=== PATIENT | male | born 1960 | race African-American/Black ===

== ENCOUNTER 2016-11-17 01:58 | Emergency (ER) | payer MEDICARE, OTHER ==
[~2016-11-17] VITALS: Ht 180.3 cm; Wt 88.5 kg
[~2016-11-17 01:58] MED LIST: ALBUTEROL SULF8.5 GM INH; AMLODIPINE BES2.5 MG ORAL; AMOXICILLIN500 MG ORAL; ASPIRIN EC81 MG ORAL; ATARAX25 MG ORAL; ATENOLOL100 MG ORAL; ATENOLOL25 MG PO; ATORVASTATIN CA10 MG ORAL; Abilify; BENAZEPRIL HCL20 MG PO; BENAZEPRIL HCL40 MG ORAL; BENZTROPINE ME0.5 MG PO; BISACODYL5 MG PO; CIPRO500 MG PO; CIPRO500 MG/5 M PO; CIPROFLOXACIN500 M2 ORAL; COGENTIN1 MG ORAL; COLACE100 MG ORAL; COUMADIN10 MG PO; DEPAKOTE ER500 MG ORAL; DEPAKOTE500 MG PO; DIVALPROEX SOD500 M2 ORAL; DIVALPROEX SOD500 MG PO; DOCUSATE SODIU100 MG ORAL; DOCUSATE SODIU100 MG PO; FLAGYL250 MG PO; FLAGYL500 MG ORAL; FLAGYL500 MG PO; FLUOXETINE HCL20 M2 ORAL; FOLIC ACID1 MG ORAL; FRAGMIN SQ; HYDROCODON-ACE1 EA15 ORAL; KEFLEX500 MG ORAL; LISINOPRIL10 MG ORAL; LISINOPRIL2.5 MG ORAL; MAGNESIUM CITR296 ML PO; METOPROLOL TART25 MG ORAL; METRONIDAZOLE500 MG ORAL; MIRALAX17 G2 ORAL; MIRALAX17 GM ORAL; MIRTAZAPINE30 MG PO; NAPROSYN500 M1 ORAL; NAPROXEN250 MG PO; NKM; NORCO 10/3251 EA ORAL; NORCO 5-325 TA1 EAC1 ORAL; NORCO 5-325 TA1 EACH ORAL; PANTOPRAZOLE SO40 MG ORAL; PAROXETINE HC12.5 MG ORAL; PAXIL CR12.5 MG PO; PAXIL20 MG PO; PEPCID40 MG PO; PERCOCET 5-3251 EACH ORAL; PROZAC40 MG ORAL; QUESTRAN PACKET4 G1 ORAL; QUETIAPINE FUM400 MG ORAL; QUETIAPINE FUMA50 MG ORAL; RANITIDINE HCL150 MG PO; RISPERDAL2 MG ORAL; RISPERIDONE3 MG PO; Remeron; SENOKOT1 TAB ORAL; SENOKOT8.6 MG ORAL; SEROQUEL XR300 MG PO; SEROQUEL100 MG ORAL; SERTRALINE HCL100 MG PO; TENORMIN25 MG ORAL; TENORMIN50 MG ORAL; TENORMIN50 MG PO; THIAMINE HCL100 MG ORAL; TYLENOL500 MG PO; TYLENOL650 MG/20. ORAL; VALIUM10 MG ORAL; VISTARIL25 MG ORAL; VITAMIN B-1100 MG ORAL; ZOFRAN4 MG ORAL; [UNRECOGNIZED DRUG - OTHER] PO
[2016-11-17] MEDS ORDERED: LORazepam Inj 2mg/ml 1ml ONE (01:59)
[2016-11-17 02:00] VITALS: BP 174/111
[2016-11-17] MEDS ORDERED: LORazepam Inj 2mg/ml 1ml IV ONE (02:15)
[2016-11-17 02:17] LABS: BASOPHILS % (AUTO) 1.9 % (0.0-2.0); EOSINOPHILS % (AUTO) 6.2 % (0.0-3.0); LYMPHOCYTES % (AUTO) 40.4 % (20.0-45.0); MEAN CORPUSCULAR HEMOGLOBIN 25.8 PG (27.0-31.0); MEAN CORPUSCULAR HGB CONC 31.3 G/DL (32.0-36.0); MEAN CORPUSCULAR VOLUME 82 FL (80-99); MEAN PLATELET VOLUME 6.1 FL (6.5-10.1); MONOCYTES % (AUTO) 6.5 % (1.0-10.0); NEUTROPHILS % (AUTO) 45.1 % (45.0-75.0); PLATELET COUNT 299 K/UL (150-450); RED BLOOD COUNT 5.52 M/UL (4.70-6.10); RED CELL DISTRIBUTION WIDTH 12.9 % (11.6-14.8); WHITE BLOOD COUNT 7.3 K/UL (4.8-10.8)
[2016-11-17 02:26] LABS: APPEARANCE,URINE CLEAR; KETONES,URINE NEGATIVE (NEGATIVE); LEUKOCYTE ESTERASE ,URINE NEGATIVE (NEGATIVE); NITRITE,URINE NEGATIVE (NEGATIVE); PROTEIN,URINE NEGATIVE (NEGATIVE); RBC,URINE 0-2 /HPF (0 - 0); SQUAMOUS EPITHELIAL CELL,UR FEW /LPF (NONE/OCC); UROBILINOGEN,URINE NORMAL MG/DL (0.0-1.0); WBC,URINE 0 /HPF (0 - 0)
[2016-11-17 02:27] LABS: PROTHROMBIN TIME 9.8 SEC (9.30-11.50)
[2016-11-17 02:35] LABS: ALCOHOL 390 mg/dL; ANION GAP 16 (5-15); CALCIUM 8.4 mg/dL (8.6-10.2); CARBON DIOXIDE 27 mEQ/L (20-30); CHLORIDE 101 mEQ/L (98-107); CREATININE 0.9 mg/dL (0.7-1.2); GLOMERULAR FILTRATION RATE > 60 mL/min (>60); HEMOLYSIS 81; POTASSIUM 4.2 mEQ/L (3.4-4.9); SODIUM 144 mEQ/L (135-145)
[2016-11-17] MEDS ORDERED: Depakote ER 250mg tab ORAL ONE (03:15)
[2016-11-17] MEDS ORDERED: Depakote 500mg tab ORAL ONE (03:15)
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
[2016-11-17] MEDS ORDERED: HYDROCODON-ACE1 EA15 ORAL (03:21)
[2016-11-17 04:42] VITALS: BP 130/90
[2016-11-17 05:25] VITALS: BP 122/82
[2016-11-17 07:15] VITALS: BP 143/84
[2016-11-17 07:16] VITALS: BP 143/84
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
== END 2016-11-17 07:16 | disposition home or self-care (01) ==
LOC: EDBD 01:58 → EMR 02:10
DX: S81.801A Unspecified open wound, right lower leg, initial encounter (principal); F10.120 Alcohol abuse with intoxication, uncomplicated; F14.10 Cocaine abuse, uncomplicated; I10 Essential (primary) hypertension; R56.9 Unspecified convulsions; Z91.19 Patient's noncompliance with other medical treatment and regimen; W34.00XA Accidental discharge from unspecified firearms or gun, initial encounter; Y92.9 Unspecified place or not applicable; Y99.8 Other external cause status
CPT/HCPCS: 29515; 36415; 73590; 73610; 80048; 80164; 80300; 81001; 82962; 85025; 85610; 85730; 96374; 99284; G0480; 80329

== ENCOUNTER 2016-11-21 14:43 | Emergency (ER) | payer MEDICARE, OTHER ==
[~2016-11-21] VITALS: Ht 175.3 cm; Wt 74.8 kg
[2016-11-21] MEDS ORDERED: Nitroglycerin 2% oint pkt TOPIC ONE (16:00)
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
[2016-11-21 16:46] LABS: BASOPHILS % (AUTO) 1.3 % (0.0-2.0); EOSINOPHILS % (AUTO) 3.9 % (0.0-3.0); LYMPHOCYTES % (AUTO) 28.3 % (20.0-45.0); MEAN CORPUSCULAR HEMOGLOBIN 26.6 PG (27.0-31.0); MEAN CORPUSCULAR HGB CONC 31.4 G/DL (32.0-36.0); MEAN CORPUSCULAR VOLUME 85 FL (80-99); MEAN PLATELET VOLUME 6.4 FL (6.5-10.1); MONOCYTES % (AUTO) 5.5 % (1.0-10.0); NEUTROPHILS % (AUTO) 61.1 % (45.0-75.0); PLATELET COUNT 200 K/UL (150-450); RED BLOOD COUNT 4.91 M/UL (4.70-6.10); WHITE BLOOD COUNT 9.4 K/UL (4.8-10.8)
[2016-11-21 17:00] LABS: INR 0.9 (0.9-1.1); PROTHROMBIN TIME 9.5 SEC (9.30-11.50)
[2016-11-21 17:07] LABS: TROPONIN I < 0.30 ng/mL (<=0.30)
[2016-11-21 17:08] LABS: ALANINE AMINOTRANSFERASE 30 U/L (3-41); ALCOHOL 148 mg/dL; ANION GAP 17 (5-15); ASPARTATE AMINO TRANSFERASE 53 U/L (5-40); CALCIUM 9.1 mg/dL (8.6-10.2); CARBON DIOXIDE 25 mEQ/L (20-30); CHLORIDE 96 mEQ/L (98-107); CREATININE 0.8 mg/dL (0.7-1.2); GLOMERULAR FILTRATION RATE > 60 mL/min (>60); HEMOLYSIS 107; POTASSIUM 4.8 mEQ/L (3.4-4.9); SODIUM 138 mEQ/L (135-145); TOTAL PROTEIN 7.5 g/dL (6.6-8.7)
[2016-11-21 17:10] LABS: APPEARANCE,URINE CLEAR; KETONES,URINE NEGATIVE (NEGATIVE); LEUKOCYTE ESTERASE ,URINE NEGATIVE (NEGATIVE); NITRITE,URINE NEGATIVE (NEGATIVE); PH,URINE 5 (4.5-8.0); PROTEIN,URINE NEGATIVE (NEGATIVE); UROBILINOGEN,URINE NORMAL MG/DL (0.0-1.0)
[2016-11-21 17:14] VITALS: BP 139/91
[2016-11-21] MEDS ORDERED: Cephalexin 500mg cap ORAL ONE (17:45)
[2016-11-21] MEDS ORDERED: PERCOCET 5-3251 EACH ORAL (18:27)
[2016-11-21] MEDS ORDERED: CEPHALEXIN500 MG ORAL (18:27)
[2016-11-21 18:28] VITALS: BP 138/96
[2016-11-21] MEDS ORDERED: Oxycodone/Acetaminophen 5-325 ORAL ONE (18:30)
[2016-11-21] MEDS ORDERED: PEPCID20 MG ORAL (18:33)
[2016-11-21 18:46] VITALS: BP 138/96
--- NOTE | 2016-11-22 08:55 | Diagnostic Imaging Report ---
Clinical history: Acute chest pain. Technique: Portable AP chest radiograph was obtained. Comparison: 08/27/14. Findings: The lungs are well inflated and clear. There is no pneumonia or pulmonary edema. There is no pleural effusion or pneumothorax. The cardiac and mediastinal silhouettes are normal in appearance. The bony thorax is unremarkable. Impression: No acute cardiopulmonary process.
--- NOTE | 2016-11-22 21:13 | Cardiology Report ---
APPROVED REPORT EKG Measurement Heart [id number] Normal sinus rhythm Septal infarct, age undetermined Abnormal ECG
== END 2016-11-21 18:46 | disposition home or self-care (01) ==
LOC: EMR 16:00
DX: Z48.02 Encounter for removal of sutures (principal); R07.9 Chest pain, unspecified; F10.129 Alcohol abuse with intoxication, unspecified; F10.10 Alcohol abuse, uncomplicated; S81.801A Unspecified open wound, right lower leg, initial encounter; I10 Essential (primary) hypertension; R56.9 Unspecified convulsions; F19.20 Other psychoactive substance dependence, uncomplicated; D64.9 Anemia, unspecified
CPT/HCPCS: 36415; 71010; 80053; 80300; 81003; 82550; 83880; 84484; 85025; 85610; 85730; 93005; 99284; G0480; 80329

== ENCOUNTER 2016-11-25 13:34 | Outpatient (RCR) | payer MEDICARE, OTHER ==
[~2016-11-25] VITALS: Ht 172.7 cm; Wt 77.1 kg
[~2016-11-25 13:34] MED LIST changes: -IBUPROFEN600 MG ORAL
[2016-12-04] MEDS ORDERED: Lidocaine HCl 2% Jelly 5ml Tube TOPIC ONE (11:45)
== END 2016-12-08 | disposition home or self-care (01) ==
LOC: WCC 13:34
DX: L97.813 Non-pressure chronic ulcer of other part of right lower leg with necrosis of muscle (principal); W34.00XS Accidental discharge from unspecified firearms or gun, sequela; Z88.2 Allergy status to sulfonamides; I10 Essential (primary) hypertension; Z86.73 Personal history of transient ischemic attack (TIA), and cerebral infarction without residual deficits; R60.0 Localized edema; F31.9 Bipolar disorder, unspecified
CPT/HCPCS: 11043; G0463

== ENCOUNTER → 2016-11-25 | Outpatient (CLI) | payer MEDICARE ==
[~2016-11-25] MED LIST changes: +CEPHALEXIN500 MG ORAL; +IBUPROFEN600 MG ORAL; +PEPCID20 MG ORAL
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
== END | disposition home or self-care (01) ==
LOC: VAS 12:47
DX: S91.001A Unspecified open wound, right ankle, initial encounter (principal); X58.XXXA Exposure to other specified factors, initial encounter; Y93.9 Activity, unspecified; Y92.9 Unspecified place or not applicable
CPT/HCPCS: 93971

== ENCOUNTER 2016-12-09 13:30 | Outpatient (RCR) | payer MEDICARE, OTHER ==
[2016-12-16] MEDS ORDERED: IBUPROFEN600 MG ORAL (16:45)
[2016-12-16] MEDS ORDERED: NORCO 5-325 TA1 EACH ORAL (16:45)
== END 2017-01-08 | disposition home or self-care (01) ==
LOC: WCC 13:30
DX: L97.813 Non-pressure chronic ulcer of other part of right lower leg with necrosis of muscle (principal); W34.00XS Accidental discharge from unspecified firearms or gun, sequela; R60.0 Localized edema; I16.0 Hypertensive urgency; X58.XXXD Exposure to other specified factors, subsequent encounter
CPT/HCPCS: 11043

== ENCOUNTER 2016-12-16 13:53 | Emergency (ER) | payer OTHER ==
[~2016-12-16] VITALS: Ht 172.7 cm; Wt 77.1 kg
[2016-12-16 14:12] VITALS: BP 172/114
[2016-12-16] MEDS ORDERED: Ketorolac 60mg Inj IM ONE (14:45)
[2016-12-16] MEDS ORDERED: Metoprolol Tartrate 12.5mg TAB ORAL ONE (14:45)
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
[2016-12-16 15:33] LABS: BASOPHILS % (AUTO) 1.6 % (0.0-2.0); EOSINOPHILS % (AUTO) 4.4 % (0.0-3.0); LYMPHOCYTES % (AUTO) 35.5 % (20.0-45.0); MEAN CORPUSCULAR HEMOGLOBIN 25.3 PG (27.0-31.0); MEAN CORPUSCULAR HGB CONC 31.1 G/DL (32.0-36.0); MEAN CORPUSCULAR VOLUME 81 FL (80-99); MEAN PLATELET VOLUME 6.3 FL (6.5-10.1); MONOCYTES % (AUTO) 5.5 % (1.0-10.0); NEUTROPHILS % (AUTO) 52.9 % (45.0-75.0); PLATELET COUNT 272 K/UL (150-450); RED BLOOD COUNT 5.65 M/UL (4.70-6.10); WHITE BLOOD COUNT 7.3 K/UL (4.8-10.8)
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
[2016-12-16 15:44] LABS: PROTHROMBIN TIME 10.4 SEC (9.30-11.50)
[2016-12-16 15:48] LABS: ALANINE AMINOTRANSFERASE 7 U/L (3-41); ALBUMIN/GLOBULIN RATIO 1.3 (1.0-2.7); ANION GAP 19 (5-15); ASPARTATE AMINO TRANSFERASE 27 U/L (5-40); CALCIUM 9.5 mg/dL (8.6-10.2); CARBON DIOXIDE 24 mEQ/L (20-30); CHLORIDE 92 mEQ/L (98-107); CREATININE 0.9 mg/dL (0.7-1.2); CRP QUANT < 0.3 mg/dL (< 0.5); GLOMERULAR FILTRATION RATE > 60 mL/min (>60); HEMOLYSIS 3; POTASSIUM 3.6 mEQ/L (3.4-4.9); SODIUM 135 mEQ/L (135-145); TOTAL PROTEIN 7.6 g/dL (6.6-8.7); URIC ACID 5.4 mg/dL (3.0-7.5)
[2016-12-16 16:21] VITALS: BP 174/112
[2016-12-16] MEDS ORDERED: IBUPROFEN600 MG ORAL (16:45)
[2016-12-16] MEDS ORDERED: NORCO 5-325 TA1 EACH ORAL (16:45)
[2016-12-16 16:52] VITALS: BP 158/98
== END 2016-12-16 16:52 | disposition home or self-care (01) ==
LOC: EMR 15:05
DX: M25.571 Pain in right ankle and joints of right foot (principal); M79.5 Residual foreign body in soft tissue; I10 Essential (primary) hypertension; F17.200 Nicotine dependence, unspecified, uncomplicated
CPT/HCPCS: 36415; 80053; 84550; 85025; 85610; 85730; 86140; 96372; 99284

== ENCOUNTER 2017-01-31 17:02 | Emergency (ER) | payer MEDICARE, OTHER ==
[~2017-01-31] VITALS: Ht 185.4 cm; Wt 95.3 kg
[2017-01-31 17:00] VITALS: BP 156/97
[~2017-01-31 17:02] MED LIST changes: +IBUPROFEN600 MG ORAL; +UNOBMED
[2017-01-31 17:44] LABS: MEAN CORPUSCULAR HEMOGLOBIN 27.1 PG (27.0-31.0); MEAN CORPUSCULAR VOLUME 82 FL (80-99); MEAN PLATELET VOLUME 7.2 FL (6.5-10.1); PLATELET COUNT 147 K/UL (150-450); RED CELL DISTRIBUTION WIDTH 15.4 % (11.6-14.8); WHITE BLOOD COUNT 5.2 K/UL (4.8-10.8)
[2017-01-31 17:50] LABS: ACETAMINOPHEN < 10 ug/mL (10-30); ALANINE AMINOTRANSFERASE 87 U/L (3-41); ALBUMIN/GLOBULIN RATIO 1.4 (1.0-2.7); ALCOHOL 446 mg/dL; ANION GAP 15 (5-15); ASPARTATE AMINO TRANSFERASE 123 U/L (5-40); CALCIUM 7.6 mg/dL (8.6-10.2); CARBON DIOXIDE 24 mEQ/L (20-30); CHLORIDE 105 mEQ/L (98-107); CREATININE 0.7 mg/dL (0.7-1.2); GLOMERULAR FILTRATION RATE > 60 mL/min (>60); HEMOLYSIS 7; POTASSIUM 3.3 mEQ/L (3.4-4.9); SODIUM 144 mEQ/L (135-145); TOTAL PROTEIN 6.7 g/dL (6.6-8.7)
[2017-01-31 18:53] VITALS: BP 143/87
[2017-01-31 20:47] LABS: ANISOCYTOSIS 1+; BAND NEUTROPHILS % (MANUAL) 0 % (0-8); BASOPHILS % (MANUAL) 3 % (0-2); EOSINOPHILS % (MANUAL) 5 % (0-3); HYPOCHROMASIA 1+; LYMPHOCYTES % (MANUAL) 52 % (20-45); NEUTROPHILS % (MANUAL) 34 % (45-75); PLATELET ESTIMATE DECREASED; PLATELET MORPHOLOGY NORMAL; TOTAL CELLS COUNTED 100
[2017-01-31 22:04] VITALS: BP 146/80
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
[2017-01-31 23:00] VITALS: BP 142/82
[2017-01-31 23:20] VITALS: BP 142/82
== END 2017-01-31 23:20 | disposition home or self-care (01) ==
LOC: EDBD 17:02 → EMR 17:42
DX: F10.129 Alcohol abuse with intoxication, unspecified (principal); Y90.8 Blood alcohol level of 240 mg/100 ml or more; I10 Essential (primary) hypertension; Z18.89 Other specified retained foreign body fragments
CPT/HCPCS: 36415; 80053; 80300; 82550; 85007; 85025; 96360; 96361; 99284; G0480; 80329

== ENCOUNTER 2017-02-23 11:39 | Day surgery (SDC) | payer MEDICARE, OTHER ==
[2017-02-17 08:32] LABS: BASOPHILS % (AUTO) 3.2 % (0.0-2.0); EOSINOPHILS % (AUTO) 6.5 % (0.0-3.0); LYMPHOCYTES % (AUTO) 40.1 % (20.0-45.0); MEAN CORPUSCULAR HEMOGLOBIN 25.6 PG (27.0-31.0); MEAN CORPUSCULAR HGB CONC 30.5 G/DL (32.0-36.0); MEAN CORPUSCULAR VOLUME 84 FL (80-99); MEAN PLATELET VOLUME 6.6 FL (6.5-10.1); NEUTROPHILS % (AUTO) 36.2 % (45.0-75.0); PLATELET COUNT 299 K/UL (150-450); RED BLOOD COUNT 5.59 M/UL (4.70-6.10); RED CELL DISTRIBUTION WIDTH 16.2 % (11.6-14.8)
[2017-02-17 08:44] LABS: PROTHROMBIN TIME 10.5 SEC (9.30-11.50)
[2017-02-17 09:06] LABS: ALANINE AMINOTRANSFERASE 51 U/L (3-41); ALBUMIN/GLOBULIN RATIO 1.2 (1.0-2.7); ANION GAP 14 (5-15); ASPARTATE AMINO TRANSFERASE 46 U/L (5-40); CARBON DIOXIDE 28 mEQ/L (20-30); CHLORIDE 97 mEQ/L (98-107); CREATININE 0.9 mg/dL (0.7-1.2); GLOMERULAR FILTRATION RATE > 60 mL/min (>60); HEMOLYSIS 1; MAGNESIUM 1.8 mg/dL (1.7-2.5); PHOSPHORUS 3.2 mg/dL (2.5-4.8); POTASSIUM 3.7 mEQ/L (3.4-4.9); SODIUM 139 mEQ/L (135-145); TOTAL PROTEIN 7.8 g/dL (6.6-8.7)
--- NOTE | 2017-02-17 11:54 | Diagnostic Imaging Report ---
Indication: Dyspnea Comparison: 11/21/16 2 views of the chest obtained. Findings: Cardiomediastinal silhouette and pulmonary vascularity are within normal limits for age. The diaphragmatic contour is smooth and costophrenic angles are sharp. No pleural effusions are identified. The bones are unremarkable. Impression: No acute disease
[~2017-02-23] VITALS: Ht 175.3 cm; Wt 77.1 kg
[2017-02-23] VITALS (13 sets, daily range): BP systolic 148–188; BP diastolic 98–112
--- NOTE | 2017-02-23 06:52 | Pre-Procedure Note/Attestation ---
Pre-Procedure Note/Attestation Complete Prior to Procedure Planned Procedure: right Procedure Narrative: rt ankle resection of foreign object Indications for Procedure Pre-Operative Diagnosis: rt ankle foreign object Attestation I attest that I discussed the nature of the procedure; its benefits; risks and complications; and alternatives (and the risks and benefits of such alternatives ), prior to the procedure, with the patient (or the patient's legal claim service representative). I attest that, if there was a reasonable possibility of needing a blood transfusion, the patient (or the patient's legal claim service representative) was given the [facility] standardized written summary, pursuant to the [place] Blood Safety Act ([place] Health and Safety Code # 1645, as amended). I attest that I re-evaluated the patient just prior to the surgery and that there has been no change in the patient's H&P, except as documented below: NONE RUCHI ORTEGA February 23, 2017 06:51
[~2017-02-23 11:39] MED LIST changes: +ceFAZolin 1gm in D5W 55ml IVPB ONE; +celeBREX 200mg Cap **SURGERY PATIENTS ONLY ORAL ONE; +oxyCONTIN 20mg tab ORAL ONE
[2017-02-23] MEDS ORDERED: celeBREX 200mg Cap **SURGERY PATIENTS ONLY ORAL ONE (12:51)
[2017-02-23] MEDS ORDERED: LR 1000ml 1,000 ML IV SCH (13:30)
[2017-02-23] MEDS ORDERED: Norco 5mg/325mg tab ORAL PRN (14:15)
[2017-02-23] MEDS ORDERED: D5 1/2NS 1,000 ML IV SCH (14:15)
[2017-02-23] MEDS ORDERED: Tylenol #3 tab (300mg/30mg) ORAL PRN (14:15)
[2017-02-23] MEDS ORDERED: HYDROmorphone 1mg/ml Carpuject SUBQ PRN (14:15)
[2017-02-23] MEDS ORDERED: Bupivacaine w/Epi 0.5% 30ml Vial INJ ONE (14:25)
[2017-02-23] MEDS ORDERED: Bacitracin 50000 Units Vial ONE (14:25)
[2017-02-23] MEDS ORDERED: Midazolam 2mg/2ml Inj ONE (14:30)
[2017-02-23] MEDS ORDERED: Lidocaine 1% MPF 10mg/ml 5ml ONE (14:30)
[2017-02-23] MEDS ORDERED: NS Irrig 1000ml ONE (14:30)
[2017-02-23] MEDS ORDERED: fentaNYL 100 mcg/2 mL IV ONE (14:30)
[2017-02-23] MEDS ORDERED: LR 1000ml ONE ×2 (14:30)
[2017-02-23] MEDS ORDERED: Propofol 10mg/ml 20ml IV ONE ×2 (14:33→14:46)
--- NOTE | 2017-02-23 15:03 | Brief Operative Note ---
Immediate Post Operative Note Operative Note Chief Complaint: rt ankle foreign body Pre-op Diagnosis: rt ankle foreign body Procedure: rt ankle resection of foreign object Post-op Diagnosis: same as pre-op Findings: consistent w/pre-op dx studies Surgeon: md ann Die Fitter: soha mejia Anesthesiologist: md jelena Anesthesia: local Specimen: yes Complications: none Condition: stable Estimated Blood Loss: minimal Drains: none Implant(s) used?: No LEONA MEJIA February 23, 2017 15:03
--- NOTE | 2017-02-23 15:10 | Anethesia Preoperative Eval ---
Anesthesia Pre-op PMH/ROS General Date of Evaluation: February 23, 2017 Anesthesiologist: Rafy ASA Score: ASA 3 Mallampati Score Class I : Soft palate, uvula, fauces, pillars visible Class II: Soft palate, uvula, fauces visible Class III: Soft palate, base of uvula visible Class IV: Only hard plate visible Mallampati Classification: Class II Surgeon: Jenae Diagnosis: Right ankle foregin body Surgical Procedure: Extraction foreign body right ankle Anesthesia History: none Family History: no anesthesia problems Allergies: Coded Allergies: NO KNOWN ALLERGIES (Unverified Allergy, Unknown, 09/13/15) Medications: see eMAR Past Medical History Cardiovascular: Reports: HTN, other - CAD, Denies: CAD, PA, arrhythmia, valve dz Pulmonary: Denies: COPD, GLENDA, asthma, other Gastrointestinal/Genitourinary: Reports: GERD, Denies: CRI, ESRD, other Neurologic/Psychiatric: Reports: other - schizophrenic, Denies: CVA, TIA, dementia, depression/anxiety Endocrine: Denies: DM, hypothyroidism, other, steroids HEENT: Denies: CHENEGA (L), CHENEGA (R), cataract (L), cataract (R), glaucoma, other Hematology/Immune: Denies: DVT, anemia, bleeding disorder, other Musculoskeletal/Integumentary: Denies: DDD, DJD, OA, RA, edema, other PSxH Narrative: See chart Anesthesia Pre-op Phys. Exam Physician Exam Last Vital Signs Date Time Temp Pulse Resp B/P Pulse Ox O2 Delivery O2 Flow Rate FiO2 02/23/17 12:18 97.5 78 20 174/112 100 Room Air Constitutional: NAD Cardiovascular: RRR Respiratory: CTA Airway Exam Mallampati Score: Class II Anesthesia Pre-op A/P Labs see chart Risk Assessment & Plan Assessment: ASA III Plan: MAC Status Change Before Surgery: No Pre-Antibiotics Drug: Ancef 1g Given Within 1 Hr of Incision: Yes Time Given: 14:30 FARHAN NUNES M.D. February 23, 2017 15:10
[2017-02-23] MEDS ORDERED: LR 1000ml 1,000 ML IVLG SCH (15:12)
--- NOTE | 2017-02-23 15:12 | Immediate Post-Op Evaluation ---
Immediate Post-Op Evalulation Immediate Post-Op Evalulation Procedure: Extraction right ankle foreign body Date of Evaluation: February 23, 2017 Time of Evaluation: 15:12 IV Fluids: 500 Blood Products: 0 Estimated Blood Loss: 0 Urinary Output: 0 Blood Pressure Systolic: 148 Blood Pressure Diastolic: 102 Pulse Rate: 80 Respiratory Rate: 16 O2 Sat by Pulse Oximetry: 99 Temperature (Fahrenheit): 97.2 Pain Score (1-10): 0 Nausea: No Vomiting: No Complications 0 Patient Status: awake, reacts, patent, none Hydration Status: adequate Drug: Ancef 1g Given Within 1 Hr of Incision: Yes Time Given: 14:30 FARHAN NUNES M.D. February 23, 2017 15:12
[2017-02-23] MEDS ORDERED: Hydromorphone 0.5mg/0.5ml inj IVP PRN (15:15)
[2017-02-23] MEDS ORDERED: DiphenhydrAMINE 50mg/ml Inj IVP PRN (15:15)
[2017-02-23] MEDS ORDERED: fentaNYL 100 mcg/2 mL IV PRN (15:15)
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
[2017-02-24 06:53] VITALS: BP 162/96
--- NOTE | 2017-02-24 06:53 | 48 Hour Post Anesthesia Eval ---
Post Anesthesia Evaluation Procedure: Extraction right ankle foreign body Date of Evaluation: February 23, 2017 Time of Evaluation: 17:30 Blood Pressure Systolic: 162 0: 96 Pulse Rate: 68 Respiratory Rate: 15 Temperature (Fahrenheit): 97.6 O2 Sat by Pulse Oximetry: 100 Airway: patent Nausea: No Vomiting: No Pain Intensity: 0 Hydration Status: adequate Cardiopulmonary Status: at baseline Mental Status/LOC: patient returned to baseline Post-Anesthesia Complications: 0 Follow-up care needed: ready to discharge FARHAN NUNES M.D. February 24, 2017 06:53
== END 2017-02-23 17:15 | disposition home or self-care (01) ==
LOC: SUR 11:39
DX: M79.5 Residual foreign body in soft tissue (principal); I25.10 Atherosclerotic heart disease of native coronary artery without angina pectoris; I10 Essential (primary) hypertension; K21.9 Gastro-esophageal reflux disease without esophagitis; D64.9 Anemia, unspecified; G40.909 Epilepsy, unspecified, not intractable, without status epilepticus; F17.210 Nicotine dependence, cigarettes, uncomplicated; R94.31 Abnormal electrocardiogram [ECG] [EKG]; F20.9 Schizophrenia, unspecified; F31.9 Bipolar disorder, unspecified; F10.10 Alcohol abuse, uncomplicated; F14.10 Cocaine abuse, uncomplicated
CPT/HCPCS: 20525; 36415; 71020; 73600; 76001; 80053; 83735; 84100; 85025; 85610; 85730; J0360; J0690; J2250; J2704; J3010; J7120; 94003; 94150

== ENCOUNTER 2017-05-17 14:09 | Inpatient (IN) | payer MEDICARE, OTHER ==
[~2017-05-17] VITALS: Ht 165.1 cm; Wt 72.6 kg
[~2017-05-17 14:09] MED LIST changes: -ceFAZolin 1gm in D5W 55ml IVPB ONE; -celeBREX 200mg Cap **SURGERY PATIENTS ONLY ORAL ONE; -oxyCONTIN 20mg tab ORAL ONE
--- NOTE | 2017-05-17 14:44 | Emergency Room Report ---
History of Present Illness General Chief Complaint: Abdominal Pain Source: Patient Present Illness HPI Patient 57-year-old male brought in by self after increased abdominal pain. The patient associated shortness of breath. The patient prior history of hernia repair. The patient noticed his abdomen becoming increasingly distended. Patient denied any fevers. He denied hematemesis. Patient had associated chest discomfort which he describes as burning sensation. Patient prior history of alcohol abuse. Allergies: Coded Allergies: NO KNOWN ALLERGIES (Unverified Allergy, Unknown, 09/13/15) Patient History Past Medical History: see triage record Reviewed Nursing Documentation: PMH: Agreed, PSxH: Agreed Nursing Documentation-PMH Past Medical History: No History, Except For Hx Cardiac Problems: Yes Hx Hypertension: Yes Hx Cancer: No Hx Gastrointestinal Problems: Yes Hx Neurological Problems: Yes Hx Seizures: Yes - 2-3 years ago Hx Dizziness: Yes - AT TIMES Hx Neurologic Surgery: No Review of Systems All Other Systems: negative except mentioned in HPI Physical Exam Vital Signs Date Time Temp Pulse Resp B/P Pulse Ox O2 Delivery O2 Flow Rate FiO2 05/17/17 14:18 97.9 76 18 106/71 98 Room Air Sp02 EP Interpretation: reviewed, normal General Appearance: normal inspection, well appearing, alert, GCS 15, mild distress Head: atraumatic ENT: normal ENT inspection, hearing grossly normal, normal voice Neck: normal inspection, full range of motion, supple, no bony tend Respiratory: normal inspection, lungs clear, normal breath sounds, no respiratory distress, no retraction, no wheezing Cardiovascular #1: regular rate, rhythm, no edema Gastrointestinal: normal inspection, normal bowel sounds, non tender, soft, no guarding, no hernia, distended Genitourinary: no CVA tenderness Musculoskeletal: normal inspection, back normal, normal range of motion Neurologic: normal inspection, alert, oriented x3, responsive, hand clerical verifier III-XII nml as tested, speech normal Psychiatric: normal inspection, judgement/insight normal, mood/affect normal Skin: normal inspection, normal color, no rash Medical Decision Making Diagnostic Impression: Primary Impression: Abdominal pain Additional Impression: Acute pancreatitis ER Course Patient presented for abdominal pain. Differential diagnoses included ischemic bowel, appendicitis, perforated viscus, abdominal aortic aneurysm, inferior myocardial infarction, viral gastroenteritis Because of complexity of patient's case laboratory testing and imaging studies were ordered.EKG interpreted by me showed normal sinus rhythm with a rate of [address] or T wave changes. Patient noted have prolonged QT interval. Patient noted be taking psychiatric medications.Laboratory testing was notable for hyponatremia as well as some elevation of the liver tests and elevated lipase consistent with pancreatitis. Acute abdominal series showed no evident obstruction. Dr. Yuan Redding was contacted for inpatient management Labs Test 05/17/17 14:33 05/17/17 16:10 White Blood Count 6.8 K/UL (4.8-10.8) Red Blood Count 5.48 M/UL (4.70-6.10) Hemoglobin 14.8 G/DL (14.2-18.0) Hematocrit 46.5 % (42.0-52.0) Mean Corpuscular Volume 85 FL (80-99) Mean Corpuscular Hemoglobin 27.0 PG (27.0-31.0) Mean Corpuscular Hemoglobin Concent 31.8 G/DL (32.0-36.0) Red Cell Distribution Width 13.8 % (11.6-14.8) Platelet Count 221 K/UL (150-450) Mean Platelet Volume 6.7 FL (6.5-10.1) Neutrophils (%) (Auto) 66.7 % (45.0-75.0) Lymphocytes (%) (Auto) 23.8 % (20.0-45.0) Monocytes (%) (Auto) 6.9 % (1.0-10.0) Eosinophils (%) (Auto) 1.3 % (0.0-3.0) Basophils (%) (Auto) 1.3 % (0.0-2.0) Prothrombin Time 10.0 SEC (9.30-11.50) Prothromb Time International Ratio 1.0 (0.9-1.1) Activated Partial Thromboplast Time 29 SEC (23-33) Sodium Level 129 mEQ/L (135-145) Potassium Level 3.3 mEQ/L (3.4-4.9) Chloride Level 89 mEQ/L (98-107) Carbon Dioxide Level 25 mEQ/L (20-30) Anion Gap 15 (5-15) Blood Urea Nitrogen 7 mg/dL (7-23) Creatinine 0.9 mg/dL (0.7-1.2) Estimat Glomerular Filtration Rate > 60 mL/min (>60) Glucose Level 112 mg/dL (74-106) Calcium Level 9.6 mg/dL (8.6-10.2) Total Bilirubin 0.9 mg/dL (0.0-1.2) Aspartate Amino Transf (AST/SGOT) 62 U/L (5-40) Alanine Aminotransferase (ALT/SGPT) 50 U/L (3-41) Alkaline Phosphatase 66 U/L (40-129) Troponin I < 0.30 ng/mL (<=0.30) Total Protein 8.2 g/dL (6.6-8.7) Albumin 4.4 g/dL (3.5-5.2) Globulin 3.8 g/dL Albumin/Globulin Ratio 1.1 (1.0-2.7) Lipase 829 U/L (< 60) Urine Color Pale yellow Urine Appearance Clear Urine pH 7 (4.5-8.0) Urine Specific [place] 1.005 (1.005-1.035) Urine Protein Negative (NEGATIVE) Urine Glucose (UA) Negative (NEGATIVE) Urine Ketones 3+ (NEGATIVE) Urine Occult Blood 1+ (NEGATIVE) Urine Nitrite Negative (NEGATIVE) Urine Bilirubin Negative (NEGATIVE) Urine Urobilinogen 1 MG/DL (0.0-1.0) Urine Leukocyte Esterase Negative (NEGATIVE) Urine RBC 2-4 /HPF (0 - 0) Urine WBC 0-2 /HPF (0 - 0) Urine Squamous Epithelial Cells None /LPF (NONE/OCC) Urine Amorphous Sediment Few /LPF (NONE) Urine Bacteria Few /HPF (NONE) EKG Diagnostic Results Rate: normal - 87 Rhythm: NSR ST Segments: no acute changes Last Vital Signs Date Time Temp Pulse Resp B/P Pulse Ox O2 Delivery O2 Flow Rate FiO2 05/17/17 14:18 97.9 76 18 106/71 98 Room Air Status: improved Disposition: HOME, SELF-CARE Condition: Stable Stu Saucedo May 17, 2017 14:43
[2017-05-17] MEDS ORDERED: LORazepam Inj 2mg/ml 1ml IV ONE ×2 (14:45→17:30)
[2017-05-17 14:49] LABS: BASOPHILS % (AUTO) 1.3 % (0.0-2.0); EOSINOPHILS % (AUTO) 1.3 % (0.0-3.0); LYMPHOCYTES % (AUTO) 23.8 % (20.0-45.0); MEAN CORPUSCULAR HGB CONC 31.8 G/DL (32.0-36.0); MEAN CORPUSCULAR VOLUME 85 FL (80-99); MEAN PLATELET VOLUME 6.7 FL (6.5-10.1); MONOCYTES % (AUTO) 6.9 % (1.0-10.0); NEUTROPHILS % (AUTO) 66.7 % (45.0-75.0); PLATELET COUNT 221 K/UL (150-450); RED BLOOD COUNT 5.48 M/UL (4.70-6.10); RED CELL DISTRIBUTION WIDTH 13.8 % (11.6-14.8); WHITE BLOOD COUNT 6.8 K/UL (4.8-10.8)
[2017-05-17 15:13] LABS: ALANINE AMINOTRANSFERASE 50 U/L (3-41); ALBUMIN/GLOBULIN RATIO 1.1 (1.0-2.7); ANION GAP 15 (5-15); ASPARTATE AMINO TRANSFERASE 62 U/L (5-40); CALCIUM 9.6 mg/dL (8.6-10.2); CARBON DIOXIDE 25 mEQ/L (20-30); CHLORIDE 89 mEQ/L (98-107); CREATININE 0.9 mg/dL (0.7-1.2); GLOMERULAR FILTRATION RATE > 60 mL/min (>60); HEMOLYSIS 5; POTASSIUM 3.3 mEQ/L (3.4-4.9); SODIUM 129 mEQ/L (135-145); TOTAL PROTEIN 8.2 g/dL (6.6-8.7)
[2017-05-17 15:19] LABS: TROPONIN I < 0.30 ng/mL (<=0.30)
[2017-05-17 15:25] LABS: LIPASE 829 U/L (< 60)
[2017-05-17] MEDS ORDERED: Morphine Sulfate 4mg/ml Inj IVP ONE (15:30)
[2017-05-17 16:13] VITALS: BP 156/144
[2017-05-17 16:34] LABS: APPEARANCE,URINE CLEAR; KETONES,URINE 3+ (NEGATIVE); LEUKOCYTE ESTERASE ,URINE NEGATIVE (NEGATIVE); NITRITE,URINE NEGATIVE (NEGATIVE); PH,URINE 7 (4.5-8.0); PROTEIN,URINE NEGATIVE (NEGATIVE); UROBILINOGEN,URINE 1 MG/DL (0.0-1.0)
[2017-05-17 16:48] LABS: AMORPHOUS SEDIMENT,UR FEW /LPF; BACTERIA,URINE FEW /HPF; WBC,URINE 0-2 /HPF (0 - 0)
[2017-05-17] MEDS ORDERED: Nitroglycerin Subl 0.4mg tab (Bottle Of 25) SL PRN (17:00)
[2017-05-17] MEDS ORDERED: Miralax 17gm pkt ORAL PRN (17:00)
[2017-05-17] MEDS ORDERED: Mylanta II UD 30ml ORAL PRN (17:00)
[2017-05-17] MEDS ORDERED: CARVEDILOL3.125 MG ORAL (17:27)
[2017-05-17] MEDS: Morphine Sulfate 2mg/ml Inj IVP PRN ×2 (17:36→22:10)
[2017-05-17 18:32] VITALS: BP 168/108
[2017-05-17 20:00] VITALS: BP 158/108
[2017-05-17] MEDS: D5 1/2NS 1,000 ML IV SCH (21:59)
[2017-05-17] MEDS: Piperacillin/Tazobactam 3.375 GM in NS 110 ML IVPB SCH (22:00)
[2017-05-17] MEDS: Heparin 5000 units/ml inj SUBQ SCH (22:07)
--- NOTE | 2017-05-17 23:26 | Consultation ---
History of Present Illness General Chief Complaint: Abdominal Pain Present Illness Allergies: Coded Allergies: NO KNOWN ALLERGIES (Unverified Allergy, Unknown, 09/13/15) Medication History Scheduled Carvedilol* (Carvedilol*), 3.125 MG ORAL EVERY 12 HOURS, (Reported) Quetiapine Fumarate* (Seroquel*), 300 MG ORAL BEDTIME Discontinued Medications Lisinopril* (Lisinopril*), 10 MG ORAL DAILY Discontinued Reason: Pt stopped taking med Patient History Healthcare decision maker Resuscitation status Advanced Directive on File Physical Exam Last 24 Hour Vital Signs Date Time Temp Pulse Resp B/P Pulse Ox O2 Delivery O2 Flow Rate FiO2 05/17/17 20:00 97.9 88 18 158/108 99 Room Air 05/17/17 19:42 89 20 156/113 100 Room Air 05/17/17 19:28 171/106 05/17/17 18:32 81 18 168/108 98 Room Air 05/17/17 16:13 97.8 05/17/17 16:13 82 18 156/144 98 Room Air 05/17/17 14:18 97.9 76 18 106/71 98 Room Air Laboratory Tests Test 05/17/17 14:33 05/17/17 16:10 White Blood Count 6.8 K/UL (4.8-10.8) Red Blood Count 5.48 M/UL (4.70-6.10) Hemoglobin 14.8 G/DL (14.2-18.0) Hematocrit 46.5 % (42.0-52.0) Mean Corpuscular Volume 85 FL (80-99) Mean Corpuscular Hemoglobin 27.0 PG (27.0-31.0) Mean Corpuscular Hemoglobin Concent 31.8 G/DL (32.0-36.0) L Red Cell Distribution Width 13.8 % (11.6-14.8) Platelet Count 221 K/UL (150-450) Mean Platelet Volume 6.7 FL (6.5-10.1) Neutrophils (%) (Auto) 66.7 % (45.0-75.0) Lymphocytes (%) (Auto) 23.8 % (20.0-45.0) Monocytes (%) (Auto) 6.9 % (1.0-10.0) Eosinophils (%) (Auto) 1.3 % (0.0-3.0) Basophils (%) (Auto) 1.3 % (0.0-2.0) Prothrombin Time 10.0 SEC (9.30-11.50) Prothromb Time International Ratio 1.0 (0.9-1.1) Activated Partial Thromboplast Time 29 SEC (23-33) Sodium Level 129 mEQ/L (135-145) L Potassium Level 3.3 mEQ/L (3.4-4.9) L Chloride Level 89 mEQ/L (98-107) L Carbon Dioxide Level 25 mEQ/L (20-30) Anion Gap 15 (5-15) Blood Urea Nitrogen 7 mg/dL (7-23) Creatinine 0.9 mg/dL (0.7-1.2) Estimat Glomerular Filtration Rate > 60 mL/min (>60) Glucose Level 112 mg/dL (74-106) H Calcium Level 9.6 mg/dL (8.6-10.2) Total Bilirubin 0.9 mg/dL (0.0-1.2) Aspartate Amino Transf (AST/SGOT) 62 U/L (5-40) H Alanine Aminotransferase (ALT/SGPT) 50 U/L (3-41) H Alkaline Phosphatase 66 U/L (40-129) Troponin I < 0.30 ng/mL (<=0.30) Total Protein 8.2 g/dL (6.6-8.7) Albumin 4.4 g/dL (3.5-5.2) Globulin 3.8 g/dL Albumin/Globulin Ratio 1.1 (1.0-2.7) Lipase 829 U/L (< 60) H Urine Color Pale yellow Urine Appearance Clear Urine pH 7 (4.5-8.0) Urine Specific [place] 1.005 (1.005-1.035) Urine Protein Negative (NEGATIVE) Urine Glucose (UA) Negative (NEGATIVE) Urine Ketones 3+ (NEGATIVE) H Urine Occult Blood 1+ (NEGATIVE) H Urine Nitrite Negative (NEGATIVE) Urine Bilirubin Negative (NEGATIVE) Urine Urobilinogen 1 MG/DL (0.0-1.0) H Urine Leukocyte Esterase Negative (NEGATIVE) Urine RBC 2-4 /HPF (0 - 0) H Urine WBC 0-2 /HPF (0 - 0) Urine Squamous Epithelial Cells None /LPF (NONE/OCC) Urine Amorphous Sediment Few /LPF (NONE) H Urine Bacteria Few /HPF (NONE) Height (Feet): 5 Height (Inches): 10.00 Weight (Pounds): 160 Medications Current Medications Medications (Trade) Dose Ordered Sig/Ariela Route PRN Reason Start Time Stop Time Status Last Admin Dose Admin Acetaminophen (Tylenol) 650 mg Q4H PRN ORAL fever 05/17/17 17:00 06/16/17 16:59 Al Hydroxide/Mg Hydroxide (Mylanta II) 30 ml Q6H PRN ORAL dyspepsia 05/17/17 17:00 06/16/17 16:59 Dextrose STAT PRN IV Hypoglycemia 05/17/17 17:00 06/16/17 16:59 Dextrose/Sodium Chloride (D5 0.45% NS) 1,000 ml @ 75 mls/hr [id number] IV 05/17/17 17:40 06/16/17 17:39 05/17/17 21:59 Diphenhydramine HCl (Benadryl) 25 mg Q6H PRN ORAL Itching/Pruritis 05/17/17 17:00 06/16/17 16:59 Heparin Sodium (Porcine) (Heparin 5000 units/ml) 5,000 units EVERY 12 HOURS SUBQ 05/17/17 21:00 06/16/17 20:59 05/17/17 22:07 Lisinopril (Prinivil) 10 mg DAILY ORAL 05/18/17 09:00 06/17/17 08:59 Morphine Sulfate (Morphine Sulfate) 2 mg EVERY 4 HOURS PRN IVP severe Pain (Pain Scale 7-10) 05/17/17 17:00 05/24/17 16:59 05/17/17 22:10 Nitroglycerin (Ntg) 0.4 mg Q5M X 3 DOSES PRN SL Prn Chest Pain 05/17/17 17:00 06/16/17 16:59 Ondansetron HCl (Zofran) 4 mg Q6H PRN IVP Nausea & Vomiting 05/17/17 17:00 06/16/17 16:59 Pantoprazole (Protonix) 40 mg DAILY IVP 05/18/17 09:00 06/17/17 08:59 Piperacillin Sod/ Tazobactam Sod/ Sodium Chloride (Zosyn/Sodium Chloride) 110 ml @ 27.5 mls/hr EVERY 8 HOURS IVPB 05/17/17 22:00 05/24/17 21:59 05/17/17 22:00 Polyethylene Glycol (Miralax) 17 gm HSPRN PRN ORAL Constipation 05/17/17 17:00 06/16/17 16:59 Quetiapine Fumarate 300 mg 300 mg BEDTIME ORAL 05/17/17 21:00 06/16/17 20:59 05/17/17 21:54 Temazepam (Restoril) 15 mg HSPRN PRN ORAL Insomnia 05/17/17 17:00 05/24/17 16:59 DEBBIE WONG May 17, 2017 23:26
[2017-05-17 23:50] VITALS: BP 146/86
[2017-05-18 04:00] VITALS: BP 101/79
[2017-05-18] MEDS: Piperacillin/Tazobactam 3.375 GM in NS 110 ML IVPB SCH ×3 (05:19→21:28)
[2017-05-18] MEDS: Morphine Sulfate 2mg/ml Inj IVP PRN ×4 (05:23→20:32)
[2017-05-18 07:00] LABS: EOSINOPHILS % (AUTO) 2.8 % (0.0-3.0); LYMPHOCYTES % (AUTO) 24.3 % (20.0-45.0); MEAN CORPUSCULAR HEMOGLOBIN 27.2 PG (27.0-31.0); MEAN CORPUSCULAR HGB CONC 32.1 G/DL (32.0-36.0); MEAN CORPUSCULAR VOLUME 85 FL (80-99); MEAN PLATELET VOLUME 7.8 FL (6.5-10.1); MONOCYTES % (AUTO) 9.1 % (1.0-10.0); NEUTROPHILS % (AUTO) 62.9 % (45.0-75.0); PLATELET COUNT 210 K/UL (150-450); RED BLOOD COUNT 4.95 M/UL (4.70-6.10); RED CELL DISTRIBUTION WIDTH 13.9 % (11.6-14.8); WHITE BLOOD COUNT 6.3 K/UL (4.8-10.8)
[2017-05-18] MEDS: D5 1/2NS 1,000 ML IV SCH (07:00)
[2017-05-18 07:20] LABS: ALANINE AMINOTRANSFERASE 38 U/L (3-41); ALBUMIN/GLOBULIN RATIO 1.1 (1.0-2.7); AMYLASE 151 U/L (10-110); ANION GAP 14 (5-15); ASPARTATE AMINO TRANSFERASE 44 U/L (5-40); CALCIUM 9.4 mg/dL (8.6-10.2); CARBON DIOXIDE 24 mEQ/L (20-30); CHLORIDE 93 mEQ/L (98-107); CREATININE 0.9 mg/dL (0.7-1.2); GLOMERULAR FILTRATION RATE > 60 mL/min (>60); HEMOLYSIS 3; POTASSIUM 3.4 mEQ/L (3.4-4.9); SODIUM 131 mEQ/L (135-145); TOTAL PROTEIN 7.4 g/dL (6.6-8.7)
[2017-05-18 07:23] LABS: LIPASE 312 U/L (< 60)
[2017-05-18 08:12] VITALS: BP 136/91
[2017-05-18] MEDS: Lisinopril 20mg tab ORAL SCH (08:32)
[2017-05-18] MEDS: Heparin 5000 units/ml inj SUBQ SCH ×2 (08:38→21:00)
--- NOTE | 2017-05-18 09:03 | Diagnostic Imaging Report ---
Indication: Abdominal pain Comparison: 04/27/14 Single view of the abdomen obtained Findings: Bowel gas pattern is nonspecific. No mass, ectopic calcifications, or abnormal gas collections are identified. The bones are unremarkable. Phlebolith calcifications noted. The sacroiliac joints appear abnormal and partially fused. Impression: No acute findings Fused sacroiliac joints
[2017-05-18] MEDS: Pantoprazole Inj IVP SCH (09:05)
[2017-05-18 12:00] VITALS: BP 124/85
--- NOTE | 2017-05-18 14:02 | Diagnostic Imaging Report ---
Clinical Indication: Abdominal pain, history of colonic resection Technique: Patient given oral contrast. IV administration nonionic contrast. Venous phase spiral acquisition obtained through the abdomen and pelvis. Multiplanar reconstructions were generated. Total dose length product 744 mGycm. CTDIvol(s) 14 mGy. Dose reduction achieved using automated exposure control Comparison: 12/25/2015 Findings: There is what appears to be a mass in the wall of the duodenum, adjacent to the right side of the pancreatic head. This is mixed in attenuation, measures 3.8 x 3 x 4.2 cm. This is mixed in attenuation, contains a central cystic element which measures 2 x 0.8 cm. Although possibly arising from the pancreatic head, this appears more likely centered in the duodenal wall medially. There is narrowing of the duodenal lumen as a result. Is immediately contiguous with the pancreatic head, which displaces to the left. This is not at all evident on the prior study. There is slight infiltration of the surrounding fat, particularly anteriorly, as well as prominent lymph nodes which were not evident previously. Largest node measures 13 millimeters long axis dimension. The stomach and distal esophagus appear unremarkable. The bile ducts appear unremarkable, as does the pancreatic duct. The liver demonstrates low attenuation diffusely, more so than on the prior study. No definite focal abnormalities, other than more focal fatty change in the usual location which was also evident previously. The gallbladder is unremarkable. The spleen is unremarkable. There is diffuse enlargement of the left adrenal, also evident previously and unchanged. The right adrenal is unremarkable. The kidneys demonstrate bilateral subcentimeter low-attenuation lesions which are too small to characterize. No retroperitoneal mass or adenopathy. No pelvic mass or adenopathy. Somewhat prominent prostate and seminal vesicles, unchanged. There are prostatic calcifications. There is colonic diverticulosis. No evidence of diverticulitis. There is again demonstrated diastasis of the rectus abdominis tendon, into which protrudes small bowel. The appendix is unremarkable. No small bowel distention or small bowel wall thickening. No free or loculated intraperitoneal air or fluid. Previously demonstrated right lower quadrant small bowel abnormality is not evident currently The included lung bases demonstrate posterior atelectatic changes versus scarring. The bones are unremarkable. Impression: 3.8 x 3 x 4.2 mass in between the duodenum and the pancreatic head,, more likely arising from the duodenal wall in the pancreatic head, lateral completely excludable. This is highly suspicious for neoplasm. Further evaluation with endoscopy is recommended. There is also slight infiltration of the surrounding fat. Adjacent prominent lymph nodes, suspect metastatic lymphadenopathy related to the above Fatty liver, progressive since prior exam of 12/25/2015. Increased low-attenuation along the falciform ligament likely reflects increased focal fat in this area, although neoplastic involvement is not completely excludable as etiology of this finding Stable left adrenal enlargement Bilateral subcentimeter low-attenuation renal lesions, too small to characterize, most likely benign simple cysts. No further followup necessary Rectus abdominis tendon diastasis, unchanged Colonic diverticulosis, no evidence of diverticulitis Posterior pulmonary atelectasis versus scarring Prostatomegaly Findings were discussed phone with Dr. Mcdowell at approximately 1315 on 05/18/[address] scanner at [facility] is accredited by the [employer] and the scans are performed using protocols designed to limit radiation exposure to as low as reasonably achievable to attain images of sufficient resolution adequate for diagnostic evaluation.
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
[2017-05-18 16:05] VITALS: BP 146/90
--- NOTE | 2017-05-18 16:05 | GI Initial Consult Note ---
History of Present Illness General Date patient seen: May 18, 2017 Time patient seen: 13:00 Reason for Hospitalization: Abdominal Pain Referring physician: CHRIS MORA Reason for Consultation: ABDOMINAL PAIN Present Illness HPI Patient 57-year-old male brought in by self after increased abdominal pain. The patient associated shortness of breath. The patient prior history of hernia repair. The patient noticed his abdomen becoming increasingly distended. Patient denied any fevers. He denied hematemesis. Patient had associated chest discomfort which he describes as burning sensation. Patient prior history of alcohol abuse. GI Consult. HPI as noted above. GI consulted for abdominal pain. Pt seen on floor, awake A&Ox4 NAD with c/o of abdominal pain with history of abdominal hernia repair and use of ETOH abuse. He presents today with pancreatitis, elevated lipase of 829 now at 312 and noted duodenal mass on recent CT AP. No history of endoscopic procedures. Home Meds Active Scripts Quetiapine Fumarate* (SEROQUEL*) 100 Mg Tablet, 300 MG ORAL BEDTIME, #30 TAB Prov:Elizabeth Ansari ENVIRONMENTAL SERVICES AIDE 10/21/15 Reported Medications Carvedilol* (CARVEDILOL*) 3.125 Mg Tablet, 3.125 MG ORAL EVERY 12 HOURS, TAB 05/17/17 Discontinued Scripts Lisinopril* (LISINOPRIL*) 10 Mg Tablet, 10 MG ORAL DAILY for 30 Days, TAB Prov:Elizabeth Ansari ENVIRONMENTAL SERVICES AIDE 10/21/15 Med list reviewed/reconciled: Yes Allergies: Coded Allergies: NO KNOWN ALLERGIES (Unverified Allergy, Unknown, 09/13/15) Patient History History Provided By: Patient, Medical Record [facility] Narrative Past Medical History: No History, Except For Hx Cardiac Problems: Yes Hx Hypertension: Yes Hx Cancer: No Hx Gastrointestinal Problems: Yes Hx Neurological Problems: Yes Hx Seizures: Yes - 2-3 years ago Hx Dizziness: Yes - AT TIMES Hx Neurologic Surgery: No Social History: Reports: alcohol use Review of Systems All Other Systems: negative except mentioned in HPI Physical Exam Vital Signs Date Time Temp Pulse Resp B/P Pulse Ox O2 Delivery O2 Flow Rate FiO2 05/17/17 14:18 97.9 76 18 106/71 98 Room Air Sp02 EP Interpretation: reviewed Labs Laboratory Tests Test 05/17/17 16:10 05/18/17 05:30 05/18/17 10:16 Urine Color Pale yellow Urine Appearance Clear Urine pH 7 (4.5-8.0) Urine Specific [place] 1.005 (1.005-1.035) Urine Protein Negative (NEGATIVE) Urine Glucose (UA) Negative (NEGATIVE) Urine Ketones 3+ (NEGATIVE) H Urine Occult Blood 1+ (NEGATIVE) H Urine Nitrite Negative (NEGATIVE) Urine Bilirubin Negative (NEGATIVE) Urine Urobilinogen 1 MG/DL (0.0-1.0) H Urine Leukocyte Esterase Negative (NEGATIVE) Urine RBC 2-4 /HPF (0 - 0) H Urine WBC 0-2 /HPF (0 - 0) Urine Squamous Epithelial Cells None /LPF (NONE/OCC) Urine Amorphous Sediment Few /LPF (NONE) H Urine Bacteria Few /HPF (NONE) White Blood Count 6.3 K/UL (4.8-10.8) Red Blood Count 4.95 M/UL (4.70-6.10) Hemoglobin 13.5 G/DL (14.2-18.0) L Hematocrit 41.9 % (42.0-52.0) L Mean Corpuscular Volume 85 FL (80-99) Mean Corpuscular Hemoglobin 27.2 PG (27.0-31.0) Mean Corpuscular Hemoglobin Concent 32.1 G/DL (32.0-36.0) Red Cell Distribution Width 13.9 % (11.6-14.8) Platelet Count 210 K/UL (150-450) Mean Platelet Volume 7.8 FL (6.5-10.1) Neutrophils (%) (Auto) 62.9 % (45.0-75.0) Lymphocytes (%) (Auto) 24.3 % (20.0-45.0) Monocytes (%) (Auto) 9.1 % (1.0-10.0) Eosinophils (%) (Auto) 2.8 % (0.0-3.0) Basophils (%) (Auto) 1.0 % (0.0-2.0) Activated Partial Thromboplast Time 29 SEC (23-33) Sodium Level 131 mEQ/L (135-145) L Potassium Level 3.4 mEQ/L (3.4-4.9) Chloride Level 93 mEQ/L (98-107) L Carbon Dioxide Level 24 mEQ/L (20-30) Anion Gap 14 (5-15) Blood Urea Nitrogen 9 mg/dL (7-23) Creatinine 0.9 mg/dL (0.7-1.2) Estimat Glomerular Filtration Rate > 60 mL/min (>60) Glucose Level 105 mg/dL (74-106) Calcium Level 9.4 mg/dL (8.6-10.2) Total Bilirubin 0.8 mg/dL (0.0-1.2) Aspartate Amino Transf (AST/SGOT) 44 U/L (5-40) H Alanine Aminotransferase (ALT/SGPT) 38 U/L (3-41) Alkaline Phosphatase 60 U/L (40-129) Total Protein 7.4 g/dL (6.6-8.7) Albumin 3.9 g/dL (3.5-5.2) Globulin 3.5 g/dL Albumin/Globulin Ratio 1.1 (1.0-2.7) Amylase Level 151 U/L (10-110) H Lipase 312 U/L (< 60) H Hepatitis A IgM Antibody Pending Hepatitis B Surface Antigen Pending Hepatitis B Core IgM Antibody Pending Hepatitis C Antibody Pending HIV (1&2) Antibody Rapid Pending Urine Opiates Screen Positive (NEGATIVE) H Urine Barbiturates Screen Negative (NEGATIVE) Phencyclidine (PCP) Screen Negative (NEGATIVE) Urine Amphetamines Screen Negative (NEGATIVE) Urine Benzodiazepines Screen Negative (NEGATIVE) Urine Cocaine Screen Negative (NEGATIVE) Urine Marijuana (THC) Screen Negative (NEGATIVE) General Appearance: well appearing, no apparent distress, alert, thin Head: normocephalic EENT: PERRL/EOMI, normal ENT inspection Neck: full range of motion, supple Respiratory: normal breath sounds, no respiratory distress Cardiovascular: normal rate Gastrointestinal: normal inspection, non tender, normal bowel sounds Rectal: deferred Genitourinary: no CVA tenderness Musculoskeletal: normal inspection, back normal Neurologic: normal inspection, alert, oriented x3, responsive Psychiatric: normal inspection, judgement/insight normal, memory normal Skin: normal inspection, normal color, no rash, warm/dry Lymphatic: normal inspection, no adenopathy Current Medications Current Medications Medications (Trade) Dose Ordered Sig/Ariela Route PRN Reason Start Time Stop Time Status Last Admin Dose Admin Acetaminophen (Tylenol) 650 mg Q4H PRN ORAL fever 05/17/17 17:00 06/16/17 16:59 Al Hydroxide/Mg Hydroxide (Mylanta II) 30 ml Q6H PRN ORAL dyspepsia 05/17/17 17:00 06/16/17 16:59 Dextrose STAT PRN IV Hypoglycemia 05/17/17 17:00 06/16/17 16:59 Dextrose/Sodium Chloride (D5 0.45% NS) 1,000 ml @ 75 mls/hr [id number] IV 05/17/17 17:40 06/16/17 17:39 05/17/17 21:59 Diphenhydramine HCl (Benadryl) 25 mg Q6H PRN ORAL Itching/Pruritis 05/17/17 17:00 06/16/17 16:59 Heparin Sodium (Porcine) (Heparin 5000 units/ml) 5,000 units EVERY 12 HOURS SUBQ 05/17/17 21:00 06/16/17 20:59 05/18/17 08:38 Lisinopril (Prinivil) 10 mg DAILY ORAL 05/18/17 09:00 06/17/17 08:59 05/18/17 08:32 Morphine Sulfate (Morphine Sulfate) 2 mg EVERY 4 HOURS PRN IVP severe Pain (Pain Scale 7-10) 05/17/17 17:00 05/24/17 16:59 05/18/17 15:51 Nitroglycerin (Ntg) 0.4 mg Q5M X 3 DOSES PRN SL Prn Chest Pain 05/17/17 17:00 06/16/17 16:59 Ondansetron HCl (Zofran) 4 mg Q6H PRN IVP Nausea & Vomiting 05/17/17 17:00 06/16/17 16:59 Pantoprazole (Protonix) 40 mg DAILY IVP 05/18/17 09:00 06/17/17 08:59 05/18/17 09:05 Piperacillin Sod/ Tazobactam Sod/ Sodium Chloride (Zosyn/Sodium Chloride) 110 ml @ 27.5 mls/hr EVERY 8 HOURS IVPB 05/17/17 22:00 05/24/17 21:59 05/18/17 13:57 Polyethylene Glycol (Miralax) 17 gm HSPRN PRN ORAL Constipation 05/17/17 17:00 06/16/17 16:59 Quetiapine Fumarate 300 mg 300 mg BEDTIME ORAL 05/17/17 21:00 06/16/17 20:59 05/17/17 21:54 Temazepam (Restoril) 15 mg HSPRN PRN ORAL Insomnia 05/17/17 17:00 05/24/17 16:59 GI: Plan Problems: (1) Acute alcoholic pancreatitis (2) Duodenal mass (3) Smoker (4) Acute abdominal pain (5) Alcohol abuse (6) Depression (7) Hernia Plan CT AP reviewed >> 3.8 x 3 x 4.2 mass in between the duodenum and the pancreatic head, more likely arising from the duodenal wall in the pancreatic head, lateral completely excludable. This is highly suspicious for neoplasm. elevated lipase >> downtrending utox unremarkable EGD scheduled for tomorrow. - CLD, NPO @ [facility]. - hold all blood thinners repeat lipase lipid panel ppi fu hep panel fu labs Discussed with Dr. Benavides. Thank you for referring this patient, we will follow. Yuki Orellana N.P. May 18, 2017 16:05
--- NOTE | 2017-05-18 16:27 | Pulmonology Progress Note ---
Assessment/Plan Assessment/Plan ASSESSMENT duodenal mass, r/o malignancy acute pancreatitis hx of ETOH abuse Hx of HTN electrolyte imbalance : hypo Na, hypo K hx of diverticulitis with hemicolectomy PLAN OF CARE [facility] floor CT A/P revealed 3.8 x 3 x 4.2 mass in between the duodenum and the pancreatic head, more likely arising from the duodenal wall in the pancreatic head, lateral completely excludable. This is highly suspicious for neoplasm. Adjacent prominent lymph nodes, suspect metastatic lymphadenopathy IVF GI follows EGD in am started on CL diet as tolerated today, NPO after MN a/emetic prn trend lipase, amylase empiric abx ID follows no systemic s/s of pancreatitis BP management with MJ and optimize as needed DVT GI prophylaxis pain management Bowel regimen monitor and replace lytes as needed case discussed and evaluated by supervising physician Subjective Allergies: Coded Allergies: NO KNOWN ALLERGIES (Unverified Allergy, Unknown, 09/13/15) Subjective intermittent abdominal pain + nausea, no vomiting, + hungry denies chest pain, SOB, palpitations no chills Objective Last 24 Hour Vital Signs Date Time Temp Pulse Resp B/P Pulse Ox O2 Delivery O2 Flow Rate FiO2 05/18/17 16:05 98.1 74 18 146/90 99 Room Air 05/18/17 12:00 97.3 86 18 124/85 99 Room Air 05/18/17 08:32 134/82 05/18/17 08:12 97.3 78 18 136/91 97 Room Air 05/18/17 04:00 97.8 117 18 101/79 96 Nasal Cannula 05/17/17 23:50 97.7 89 18 146/86 94 Room Air 05/17/17 20:00 97.9 88 18 158/108 99 Room Air 05/17/17 19:42 89 20 156/113 100 Room Air 05/17/17 19:28 171/106 05/17/17 18:32 81 18 168/108 98 Room Air Intake and Output 05/17/17 05/18/17 19:00 07:00 Intake Total 0 ml 362.5 ml Output Total 400 ml Balance 0 ml -37.5 ml Intake Oral 0 ml IV Total 362.5 ml Output Urine Total 400 ml General Appearance: WD/WN, no acute distress HEENT: normocephalic, atraumatic Respiratory/Chest: lungs clear, no respiratory distress, no accessory muscle use Cardiovascular: normal peripheral pulses, normal rate, regular rhythm Abdomen: normal bowel sounds, soft, non tender Extremities: no edema, pedal pulses normal Skin: other - healed large abdominal scar Neurologic/Psychiatric: alert, oriented x 3, responsive Musculoskeletal: normal muscle bulk Laboratory Tests 05/18/17 05:30: White Blood Count 6.3, Red Blood Count 4.95, Hemoglobin 13.5L, Hematocrit 41.9L , Mean Corpuscular Volume 85, Mean Corpuscular Hemoglobin 27.2, Mean Corpuscular Hemoglobin Concent 32.1, Red Cell Distribution Width 13.9, Platelet Count 210, Mean Platelet Volume 7.8, Neutrophils (%) (Auto) 62.9, Lymphocytes (% ) (Auto) 24.3, Monocytes (%) (Auto) 9.1, Eosinophils (%) (Auto) 2.8, Basophils ( %) (Auto) 1.0, Activated Partial Thromboplast Time 29, Sodium Level 131L, Potassium Level 3.4, Chloride Level 93L, Carbon Dioxide Level 24, Anion Gap 14, Blood Urea Nitrogen 9, Creatinine 0.9, Estimat Glomerular Filtration Rate > 60, Glucose Level 105, Calcium Level 9.4, Total Bilirubin 0.8, Aspartate Amino Transf (AST/SGOT) 44H, Alanine Aminotransferase (ALT/SGPT) 38, Alkaline Phosphatase 60, Total Protein 7.4, Albumin 3.9, Globulin 3.5, Albumin/Globulin Ratio 1.1, Amylase Level 151H, Lipase 312H, Hepatitis A IgM Antibody [Pending], Hepatitis B Surface Antigen [Pending], Hepatitis B Core IgM Antibody [Pending], Hepatitis C Antibody [Pending], HIV (1&2) Antibody Rapid [Pending] 05/18/17 10:16: Urine Opiates Screen PositiveH, Urine Barbiturates Screen Negative, Phencyclidine (PCP) Screen Negative, Urine Amphetamines Screen Negative, Urine Benzodiazepines Screen Negative, Urine Cocaine Screen Negative, Urine Marijuana (THC) Screen Negative Current Medications Medications (Trade) Dose Ordered Sig/Ariela Route PRN Reason Start Time Stop Time Status Last Admin Dose Admin Acetaminophen (Tylenol) 650 mg Q4H PRN ORAL fever 05/17/17 17:00 06/16/17 16:59 Al Hydroxide/Mg Hydroxide (Mylanta II) 30 ml Q6H PRN ORAL dyspepsia 05/17/17 17:00 06/16/17 16:59 Dextrose STAT PRN IV Hypoglycemia 05/17/17 17:00 06/16/17 16:59 Dextrose/Sodium Chloride (D5 0.45% NS) 1,000 ml @ 75 mls/hr [id number] IV 05/17/17 17:40 06/16/17 17:39 05/17/17 21:59 Diphenhydramine HCl (Benadryl) 25 mg Q6H PRN ORAL Itching/Pruritis 05/17/17 17:00 06/16/17 16:59 Heparin Sodium (Porcine) (Heparin 5000 units/ml) 5,000 units EVERY 12 HOURS SUBQ 05/17/17 21:00 06/16/17 20:59 05/18/17 08:38 Lisinopril (Prinivil) 10 mg DAILY ORAL 05/18/17 09:00 06/17/17 08:59 05/18/17 08:32 Morphine Sulfate (Morphine Sulfate) 2 mg EVERY 4 HOURS PRN IVP severe Pain (Pain Scale 7-10) 05/17/17 17:00 05/24/17 16:59 05/18/17 15:51 Nitroglycerin (Ntg) 0.4 mg Q5M X 3 DOSES PRN SL Prn Chest Pain 05/17/17 17:00 06/16/17 16:59 Ondansetron HCl (Zofran) 4 mg Q6H PRN IVP Nausea & Vomiting 05/17/17 17:00 06/16/17 16:59 Pantoprazole (Protonix) 40 mg DAILY IVP 05/18/17 09:00 06/17/17 08:59 05/18/17 09:05 Piperacillin Sod/ Tazobactam Sod/ Sodium Chloride (Zosyn/Sodium Chloride) 110 ml @ 27.5 mls/hr EVERY 8 HOURS IVPB 05/17/17 22:00 05/24/17 21:59 05/18/17 13:57 Polyethylene Glycol (Miralax) 17 gm HSPRN PRN ORAL Constipation 05/17/17 17:00 06/16/17 16:59 Quetiapine Fumarate 300 mg 300 mg BEDTIME ORAL 05/17/17 21:00 06/16/17 20:59 05/17/17 21:54 Temazepam (Restoril) 15 mg HSPRN PRN ORAL Insomnia 05/17/17 17:00 05/24/17 16:59 [facility] NP May 18, 2017 16:27
[2017-05-18] MEDS: D5 1/2NS w/KCl 20mEq 1,000 ML IV SCH (16:58)
--- NOTE | 2017-05-18 17:31 | History & Physical ---
History and Physical History & Physicial Dictated for Int Med-Dr [place] no. [id number]. AUBREY AKINS May 18, 2017 17:31
[2017-05-18 20:00] VITALS: BP 159/82
[2017-05-18 20:33] VITALS: BP 148/84
--- NOTE | 2017-05-18 21:00 | History and Physical Report ---
DATE OF ADMISSION: 05/17/2017 CHIEF COMPLAINT: The patient is a 57-year-old male, who presents with complaint of abdominal pain. HISTORY OF PRESENT ILLNESS: Began on Wednesday05/14/2017, the patient began to experience abdominal pain. The patient states his stomach has becoming increasingly distended. The patient states the pain radiates to his chest. The patient presented to the emergency room. The patient is admitted for abdominal distention to rule out small bowel obstruction. REVIEW OF SYSTEMS: CONSTITUTIONAL: The patient denies weight loss or weight gain. The patient denies fevers or chills. HEENT: The patient denies ear or throat pain. CARDIOVASCULAR: The patient denies palpitations or chest pain. CHEST: The patient denies wheezes or shortness of breath. ABDOMEN: The patient complains of generalized abdominal pain as above. The patient complains of abdominal distention. The patient denies nausea or vomiting. He complains of constipation. Genitourinary: The patient denies dysuria or increased frequency urination. Neuromuscular: The patient denies seizures or generalized weakness. PAST MEDICAL HISTORY: Significant for: 1. Crohn disease. 2. Hypertension. 3. Bipolar depression. PAST SURGICAL HISTORY: Significant for: 1. Colon resection secondary to Crohn disease in 2013. 2. Ventral hernia repair. CURRENT MEDICATIONS: 1. Coreg 3.125 mg one tablet p.o. twice daily. 2. Seroquel 300 mg one tablet p.o. nightly. ALLERGIES: No known drug allergies. SOCIAL HISTORY: The patient is and is disabled. The patient admits to tobacco use one-half pack per day. The patient admits to alcohol use of two drinks daily. The patient denies other drugs abuse. The patient is disabled. PHYSICAL EXAMINATION: VITAL SIGNS: Temperature is 97.7 degrees, respirations 18, pulse 89, and blood pressure 146/86. GENERAL: The patient is well developed and well nourished male, in no apparent distress. HEENT: Pupils are equal and responsive to light and accommodation. Extraocular movements are intact. NECK: Supple without lymphadenopathy. CHEST: Lungs are clear to auscultation bilaterally without wheezes or rales. CARDIOVASCULAR: Regular rhythm and rate. S1 and S2 are normal without murmurs, rubs, or gallops. ABDOMEN: Soft, nontender, and nondistended. Positive bowel sounds. No evidence of hepatosplenomegaly with hyperactive bowel sounds. Abdomen is distended. There is increased tympany to palpation. Otherwise, without rebound or guarding. EXTREMITIES: No clubbing, cyanosis, or edema. RECTAL/GENITAL: Refused. NEUROLOGIC: Cranial Nerves II through XII are grossly intact without focal deficits. Motor strength is 5/5 bilaterally. Deep tendon reflexes 2+ plantar. LABORATORY STUDIES: WBC is 6.8, hemoglobin 14.8, hematocrit 46.5, and platelets 221,000. Sodium is 129, potassium 3.3, chloride 89, CO2 25, BUN 7, creatinine 0.9, and glucose is 112. A KUB pelvic demonstrate small bowel obstruction. ASSESSMENT: This is a 57-year-old male. 1. Abdominal pain. 2. Abdominal distention. 3. Hypertension. 4. Crohn disease. 5. Bipolar depression. 6. Hyponatremia. 7. Hypokalemia. TREATMENT: 1. Abdominal distension/abdominal pain. A CT scan of the abdomen is pending. Gastroenterology consultation . We will follow recommendations with Gastroenterology. 2. Hypertension. Continue Coreg as above. 3. Crohn disease. The patient is status post resection. 4. Bipolar depression. Continue Seroquel as above. 5. Hyponatremia/hypokalemia. The patient is currently receiving intravenous fluids. Osman Mcdowell M.D. DR: BRIAN JOB#: [id number] CC:
[2017-05-19] VITALS (11 sets, daily range): BP systolic 113–160; BP diastolic 67–110
--- NOTE | 2017-05-19 05:03 | Infectious Diseases Prog Note ---
Assessment/Plan Assessment/Plan ASSESSMENT AND PLAN 57 y/o etoh user, h/o prior pancreatitis, h/o pericolic abscess complicating diverticulitis requiring hemicolectomy in 11/24, now admitted with acute pancreatitis w/o systemic signs/symptoms of infection. ASSESSMENT: 1) Acute pancreatitis, prior hx 2) No pancreatic necrosis, abscess, or pseudocyst, but appears to have duodenal /periduondal mass concerning for malignancy 3) h/o diverticulitis c/b pericolic abscess requiring hemicolectomy 11/24 4) Afebrile 5) no leukocytosis 6) urinalysis negative for infection 7) mild transaminitis without cholestasis, improving 8) Elevated amylase and lipase 9) Hyponatremia 10) hypokalemia 11) Dehydration (+ urinary ketones) w/o hyperglycemia and w/o acidosis 12) UDS positive for opiates 13) HIV screen negative PLAN: --Continue empiric IV zosyn D#3, but likely able to d/c over next 48-72 hrs depending on clinical course and pending GI w/u for duodenal mass --f/u viral hepatitis screening --Monitor CBC, monitor temp --f/u EGD results from later today --monitor lipase, monitor LFTs Subjective Constitutional: Reports: no symptoms Gastrointestinal/Abdominal: Reports: bloating, other - epigastric pain, unchanged Allergies: Coded Allergies: NO KNOWN ALLERGIES (Unverified Allergy, Unknown, 09/13/15) Objective Vital Signs Last 24 Hour Vital Signs Date Time Temp Pulse Resp B/P Pulse Ox O2 Delivery O2 Flow Rate FiO2 05/18/17 20:33 148/84 05/18/17 20:00 97.7 77 21 159/82 96 Room Air 77 05/18/17 16:05 98.1 74 18 146/90 99 Room Air 05/18/17 12:00 97.3 86 18 124/85 99 Room Air 05/18/17 08:32 134/82 05/18/17 08:12 97.3 78 18 136/91 97 Room Air Height (Feet): 5 Height (Inches): 5.00 Weight (Pounds): 160 Objective VITAL SIGNS: reviewed. afebrile since admission GEN: awake, alert, non toxic appearing HEENT: Mild pale conjunctiva. oral mucosa dry, pharynx w/o exudate or effusion. No icterus. Head normocephalic, neck supple. NECK: No cervical LAD CHEST: Clear to auscultation bilaterally. HEART: S1 and S2, no murmurs, no rubs. ABDOMEN: soft, + epigastric tenderness, non distended, normoactive bowel sounds. EXTREMITIES: No cyanosis, no clubbing, no edema. NEUROLOGIC: Awake, alert, no focal neurologic motor deficits. : no lesions, no ulcerations LYMPH: no axillary LAD RECTAL: deferred Laboratory Tests Test 05/18/17 05:30 05/18/17 10:16 White Blood Count 6.3 K/UL (4.8-10.8) Red Blood Count 4.95 M/UL (4.70-6.10) Hemoglobin 13.5 G/DL (14.2-18.0) L Hematocrit 41.9 % (42.0-52.0) L Mean Corpuscular Volume 85 FL (80-99) Mean Corpuscular Hemoglobin 27.2 PG (27.0-31.0) Mean Corpuscular Hemoglobin Concent 32.1 G/DL (32.0-36.0) Red Cell Distribution Width 13.9 % (11.6-14.8) Platelet Count 210 K/UL (150-450) Mean Platelet Volume 7.8 FL (6.5-10.1) Neutrophils (%) (Auto) 62.9 % (45.0-75.0) Lymphocytes (%) (Auto) 24.3 % (20.0-45.0) Monocytes (%) (Auto) 9.1 % (1.0-10.0) Eosinophils (%) (Auto) 2.8 % (0.0-3.0) Basophils (%) (Auto) 1.0 % (0.0-2.0) Activated Partial Thromboplast Time 29 SEC (23-33) Sodium Level 131 mEQ/L (135-145) L Potassium Level 3.4 mEQ/L (3.4-4.9) Chloride Level 93 mEQ/L (98-107) L Carbon Dioxide Level 24 mEQ/L (20-30) Anion Gap 14 (5-15) Blood Urea Nitrogen 9 mg/dL (7-23) Creatinine 0.9 mg/dL (0.7-1.2) Estimat Glomerular Filtration Rate > 60 mL/min (>60) Glucose Level 105 mg/dL (74-106) Calcium Level 9.4 mg/dL (8.6-10.2) Total Bilirubin 0.8 mg/dL (0.0-1.2) Aspartate Amino Transf (AST/SGOT) 44 U/L (5-40) H Alanine Aminotransferase (ALT/SGPT) 38 U/L (3-41) Alkaline Phosphatase 60 U/L (40-129) Total Protein 7.4 g/dL (6.6-8.7) Albumin 3.9 g/dL (3.5-5.2) Globulin 3.5 g/dL Albumin/Globulin Ratio 1.1 (1.0-2.7) Amylase Level 151 U/L (10-110) H Lipase 312 U/L (< 60) H Hepatitis A IgM Antibody Pending Hepatitis B Surface Antigen Pending Hepatitis B Core IgM Antibody Pending Hepatitis C Antibody Pending HIV (1&2) Antibody Rapid Negative (NEGATIVE) Urine Opiates Screen Positive (NEGATIVE) H Urine Barbiturates Screen Negative (NEGATIVE) Phencyclidine (PCP) Screen Negative (NEGATIVE) Urine Amphetamines Screen Negative (NEGATIVE) Urine Benzodiazepines Screen Negative (NEGATIVE) Urine Cocaine Screen Negative (NEGATIVE) Urine Marijuana (THC) Screen Negative (NEGATIVE) Patient : BANDAR HARDWICK Referring Physician: Yuki Orellana N.P. ID Number: [id number] Service Date: 05/18/17 : 1960 Report Date: 05/18/17 Gender: M Accession No.: [id number] Location: 4W Procedure: CT Abdomen Pelvis w/Contrast Clinical Indication: Abdominal pain, history of colonic resection Technique: Patient given oral contrast. IV administration nonionic contrast. Venous phase spiral acquisition obtained through the abdomen and pelvis. Multiplanar reconstructions were generated. Total dose length product 744 mGycm. CTDIvol(s) 14 mGy. Dose reduction achieved using automated exposure control Comparison: 12/25/2015 Findings: There is what appears to be a mass in the wall of the duodenum, adjacent to the right side of the pancreatic head. This is mixed in attenuation, measures 3.8 x 3 x 4.2 cm. This is mixed in attenuation, contains a central cystic element which measures 2 x 0.8 cm. Although possibly arising from the pancreatic head, this appears more likely centered in the duodenal wall medially. There is narrowing of the duodenal lumen as a result. Is immediately contiguous with the pancreatic head, which displaces to the left. This is not at all evident on the prior study. There is slight infiltration of the surrounding fat, particularly anteriorly, as well as prominent lymph nodes which were not evident previously. Largest node measures 13 millimeters long axis dimension. The stomach and distal esophagus appear unremarkable. The bile ducts appear unremarkable, as does the pancreatic duct. The liver demonstrates low attenuation diffusely, more so than on the prior study. No definite focal abnormalities, other than more focal fatty change in the usual location which was also evident previously. The gallbladder is unremarkable. The spleen is unremarkable. There is diffuse enlargement of the left adrenal, also evident previously and unchanged. The right adrenal is unremarkable. The kidneys demonstrate bilateral subcentimeter low-attenuation lesions which are too small to characterize. No retroperitoneal mass or adenopathy. No pelvic mass or adenopathy. Somewhat prominent prostate and seminal vesicles, unchanged. There are prostatic calcifications. There is colonic diverticulosis. No evidence of diverticulitis. There is again demonstrated diastasis of the rectus abdominis tendon, into which protrudes small bowel. The appendix is unremarkable. No small bowel distention or small bowel wall thickening. No free or loculated intraperitoneal air or fluid. Previously demonstrated right lower quadrant small bowel abnormality is not evident currently The included lung bases demonstrate posterior atelectatic changes versus scarring. The bones are unremarkable. Impression: 3.8 x 3 x 4.2 mass in between the duodenum and the pancreatic head,, more likely arising from the duodenal wall in the pancreatic head, lateral completely excludable. This is highly suspicious for neoplasm. Further evaluation with endoscopy is recommended. There is also slight infiltration of the surrounding fat. Adjacent prominent lymph nodes, suspect metastatic lymphadenopathy related to the above Fatty liver, progressive since prior exam of 12/25/2015. Increased low- attenuation along the falciform ligament likely reflects increased focal fat in this area, although neoplastic involvement is not completely excludable as etiology of this finding Stable left adrenal enlargement Bilateral subcentimeter low-attenuation renal lesions, too small to characterize , most likely benign simple cysts. No further followup necessary Rectus abdominis tendon diastasis, unchanged Colonic diverticulosis, no evidence of diverticulitis Posterior pulmonary atelectasis versus scarring Prostatomegaly Current Medications Medications (Trade) Dose Ordered Sig/Ariela Route PRN Reason Start Time Stop Time Status Last Admin Dose Admin Acetaminophen (Tylenol) 650 mg Q4H PRN ORAL fever 05/17/17 17:00 06/16/17 16:59 Al Hydroxide/Mg Hydroxide (Mylanta II) 30 ml Q6H PRN ORAL dyspepsia 05/17/17 17:00 06/16/17 16:59 Dextrose STAT PRN IV Hypoglycemia 05/17/17 17:00 06/16/17 16:59 Dextrose/ Electrolytes (D5 0.45%NS W/ KCl 20mEq) 1,000 ml @ 75 mls/hr [id number] IV 05/18/17 17:15 06/17/17 17:14 05/18/17 16:58 Diphenhydramine HCl (Benadryl) 25 mg Q6H PRN ORAL Itching/Pruritis 05/17/17 17:00 06/16/17 16:59 Heparin Sodium (Porcine) (Heparin 5000 units/ml) 5,000 units EVERY 12 HOURS SUBQ 05/17/17 21:00 06/16/17 20:59 05/18/17 08:38 Lisinopril (Prinivil) 10 mg DAILY ORAL 05/18/17 09:00 06/17/17 08:59 05/18/17 08:32 Morphine Sulfate (Morphine Sulfate) 2 mg EVERY 4 HOURS PRN IVP severe Pain (Pain Scale 7-10) 05/17/17 17:00 05/24/17 16:59 05/18/17 20:32 Nitroglycerin (Ntg) 0.4 mg Q5M X 3 DOSES PRN SL Prn Chest Pain 05/17/17 17:00 06/16/17 16:59 Ondansetron HCl (Zofran) 4 mg Q6H PRN IVP Nausea & Vomiting 05/17/17 17:00 06/16/17 16:59 Pantoprazole 40 mg 40 mg DAILY IVP 05/18/17 09:00 06/17/17 08:59 05/18/17 09:05 Piperacillin Sod/ Tazobactam Sod/ Sodium Chloride (Zosyn/Sodium Chloride) 110 ml @ 27.5 mls/hr EVERY 8 HOURS IVPB 05/17/17 22:00 05/24/17 21:59 05/18/17 21:28 Polyethylene Glycol (Miralax) 17 gm HSPRN PRN ORAL Constipation 05/17/17 17:00 06/16/17 16:59 Quetiapine Fumarate (SEROquel) 300 mg BEDTIME ORAL 05/17/17 21:00 06/16/17 20:59 05/18/17 20:26 Temazepam (Restoril) 15 mg HSPRN PRN ORAL Insomnia 05/17/17 17:00 05/24/17 16:59 Bam Xiong M.D. May 19, 2017 05:03
[2017-05-19] MEDS: Piperacillin/Tazobactam 3.375 GM in NS 110 ML IVPB SCH ×3 (05:18→21:13)
[2017-05-19] MEDS: D5 1/2NS w/KCl 20mEq 1,000 ML IV SCH ×2 (06:09→20:03)
[2017-05-19 07:10] LABS: BASOPHILS % (AUTO) 1.2 % (0.0-2.0); EOSINOPHILS % (AUTO) 2.7 % (0.0-3.0); LYMPHOCYTES % (AUTO) 20.5 % (20.0-45.0); MEAN CORPUSCULAR HEMOGLOBIN 27.1 PG (27.0-31.0); MEAN CORPUSCULAR HGB CONC 31.7 G/DL (32.0-36.0); MEAN CORPUSCULAR VOLUME 85 FL (80-99); MEAN PLATELET VOLUME 8.5 FL (6.5-10.1); MONOCYTES % (AUTO) 8.7 % (1.0-10.0); PLATELET COUNT 215 K/UL (150-450); RED BLOOD COUNT 4.93 M/UL (4.70-6.10); WHITE BLOOD COUNT 6.3 K/UL (4.8-10.8)
[2017-05-19 07:11] LABS: INR 0.9 (0.9-1.1); PROTHROMBIN TIME 9.8 SEC (9.30-11.50)
[2017-05-19 07:27] LABS: CHOLESTEROL/HDL RATIO 2.3 (3.3-4.4)
[2017-05-19 07:28] LABS: ANION GAP 16 (5-15); CALCIUM 9.8 mg/dL (8.6-10.2); CARBON DIOXIDE 26 mEQ/L (20-30); CHLORIDE 96 mEQ/L (98-107); CREATININE 0.9 mg/dL (0.7-1.2); GLOMERULAR FILTRATION RATE > 60 mL/min (>60); HEMOLYSIS 8; POTASSIUM 3.5 mEQ/L (3.4-4.9); SODIUM 138 mEQ/L (135-145)
[2017-05-19] MEDS: Lisinopril 20mg tab ORAL SCH (08:41)
[2017-05-19] MEDS: Pantoprazole Inj IVP SCH (08:41)
[2017-05-19] MEDS: Morphine Sulfate 2mg/ml Inj IVP PRN ×3 (08:42→21:13)
[2017-05-19] MEDS: Heparin 5000 units/ml inj SUBQ SCH ×2 (08:49→21:00)
[2017-05-19] MEDS ORDERED: NS 550ML IV ONE (10:50)
--- NOTE | 2017-05-19 10:52 | Pre-Procedure Note/Attestation ---
Pre-Procedure Note/Attestation Complete Prior to Procedure Planned Procedure: not applicable Procedure Narrative: egd Indications for Procedure Pre-Operative Diagnosis: doudenal mass Attestation I attest that I discussed the nature of the procedure; its benefits; risks and complications; and alternatives (and the risks and benefits of such alternatives ), prior to the procedure, with the patient (or the patient's legal business process representative). I attest that, if there was a reasonable possibility of needing a blood transfusion, the patient (or the patient's legal business process representative) was given the [facility] standardized written summary, pursuant to the [place] Blood Safety Act ([place] Health and Safety Code # 1645, as amended). I attest that I re-evaluated the patient just prior to the surgery and that there has been no change in the patient's H&P, except as documented below: DORIAN COLLINS May 19, 2017 10:52
[2017-05-19] MEDS ORDERED: Lidocaine 1% MPF 10mg/ml 5ml ONE (11:00)
[2017-05-19] MEDS ORDERED: Propofol 10mg/ml 20ml IV ONE (11:00)
--- NOTE | 2017-05-19 11:03 | Endoscopy Procedure Note ---
Endoscopy Procedure Note Indication for Procedure: doudenal mass Procedures Performed: EGD Operative Findings/Diagnosis: gastritis Specimen: yes Pt Tolerated Procedure Well: Yes Estimated Blood Loss: none Anesthesiologist: vidhya Anesthesia: MAC Implant(s) used?: No 50 yrs or older w/o bx or poly: Not Applicable 10yrs. F/U not recommended: Not Applicable DORIAN COLLINS May 19, 2017 11:03
--- NOTE | 2017-05-19 11:15 | Anethesia Preoperative Eval ---
Anesthesia Pre-op PMH/ROS General Date of Evaluation: May 19, 2017 Time of Evaluation: 10:48 Anesthesiologist: marla ASA Score: ASA 3 Mallampati Score Class I : Soft palate, uvula, fauces, pillars visible Class II: Soft palate, uvula, fauces visible Class III: Soft palate, base of uvula visible Class IV: Only hard plate visible Mallampati Classification: Class II Surgeon: abbie Diagnosis: gerd Surgical Procedure: egd Anesthesia History: none Social History: alcohol use Family History: no anesthesia problems Allergies: Coded Allergies: NO KNOWN ALLERGIES (Unverified Allergy, Unknown, 09/13/15) Past Medical History Cardiovascular: Reports: HTN Pulmonary: Reports: other - sob Gastrointestinal/Genitourinary: Reports: GERD Neurologic/Psychiatric: Reports: depression/anxiety, other - seizures Hematology/Immune: Denies: DVT, anemia, bleeding disorder, other Musculoskeletal/Integumentary: Denies: DDD, DJD, OA, RA, edema, other Anesthesia Pre-op Phys. Exam Physician Exam Last Vital Signs Date Time Temp Pulse Resp B/P Pulse Ox O2 Delivery O2 Flow Rate FiO2 05/19/17 08:41 152/104 05/19/17 08:00 97.5 80 20 100 Room Air Constitutional: NAD Neurologic: CN 2-12 intact Cardiovascular: RRR Respiratory: other - diminished at bases Gastrointestinal: S/NT/ND Airway Exam Mallampati Score: Class II MO: full ROM: limited Dentures: no lower, no upper Anesthesia Pre-op A/P Labs Hematology Test 05/19/17 05:50 White Blood Count 6.3 K/UL (4.8-10.8) Red Blood Count 4.93 M/UL (4.70-6.10) Hemoglobin 13.4 G/DL (14.2-18.0) L Hematocrit 42.1 % (42.0-52.0) Mean Corpuscular Volume 85 FL (80-99) Mean Corpuscular Hemoglobin 27.1 PG (27.0-31.0) Mean Corpuscular Hemoglobin Concent 31.7 G/DL (32.0-36.0) L Red Cell Distribution Width 14.0 % (11.6-14.8) Platelet Count 215 K/UL (150-450) Mean Platelet Volume 8.5 FL (6.5-10.1) Neutrophils (%) (Auto) 67.0 % (45.0-75.0) Lymphocytes (%) (Auto) 20.5 % (20.0-45.0) Monocytes (%) (Auto) 8.7 % (1.0-10.0) Eosinophils (%) (Auto) 2.7 % (0.0-3.0) Basophils (%) (Auto) 1.2 % (0.0-2.0) Coagulation Test 05/19/17 05:50 Prothrombin Time 9.8 SEC (9.30-11.50) Prothromb Time International Ratio 0.9 (0.9-1.1) Activated Partial Thromboplast Time 28 SEC (23-33) Chemistry Test 05/19/17 05:50 Sodium Level 138 mEQ/L (135-145) Potassium Level 3.5 mEQ/L (3.4-4.9) Chloride Level 96 mEQ/L (98-107) L Carbon Dioxide Level 26 mEQ/L (20-30) Anion Gap 16 (5-15) H Blood Urea Nitrogen 7 mg/dL (7-23) Creatinine 0.9 mg/dL (0.7-1.2) Estimat Glomerular Filtration Rate > 60 mL/min (>60) Glucose Level 101 mg/dL (74-106) Calcium Level 9.8 mg/dL (8.6-10.2) Triglycerides Level 90 mg/dL (< 150) Cholesterol Level 197 mg/dL (< 200) LDL Cholesterol 94 mg/dL (60-99) HDL Cholesterol 85 mg/dL (> 60) H Cholesterol/HDL Ratio 2.3 (3.3-4.4) L Amylase Level 99 U/L (10-110) Lipase 156 U/L (< 60) H Studies Pre-op Studies: EKG Risk Assessment & Plan Plan: mac Status Change Before Surgery: No Pre-Antibiotics Given Within 1 Hr of Incision: Deisi Cortes CRNA May 19, 2017 11:15
--- NOTE | 2017-05-19 11:19 | Immediate Post-Op Evaluation ---
Immediate Post-Op Evalulation Immediate Post-Op Evalulation Date of Evaluation: May 19, 2017 Time of Evaluation: 10:10 IV Fluids: 250 Blood Pressure Systolic: 160 Blood Pressure Diastolic: 109 Pulse Rate: 108 Respiratory Rate: 30 O2 Sat by Pulse Oximetry: 99 Temperature (Fahrenheit): 97.7 Nausea: No Vomiting: No Patient Status: awake Hydration Status: adequate Given Within 1 Hr of Incision: No Deisi Sims CRNA May 19, 2017 11:19
--- NOTE | 2017-05-19 11:20 | 48 Hour Post Anesthesia Eval ---
Post Anesthesia Evaluation Date of Evaluation: May 19, 2017 Time of Evaluation: 11:19 Blood Pressure Systolic: 155 0: 100 Pulse Rate: 83 Respiratory Rate: 25 Temperature (Fahrenheit): 97.7 O2 Sat by Pulse Oximetry: 100 Airway: patent Nausea: No Vomiting: No Hydration Status: adequate Mental Status/LOC: patient returned to baseline Post-Anesthesia Complications: none Follow-up care needed: patient intructions given Deisi Sims CRNA May 19, 2017 11:20
--- NOTE | 2017-05-19 13:24 | Internal Med Progress Note ---
Subjective Date of Service: May 19, 2017 Physician Name AkinsAubrey Attending Physician Yuan Redding MD Current Medications Medications (Trade) Dose Ordered Sig/Ariela Route PRN Reason Start Time Stop Time Status Last Admin Dose Admin Acetaminophen (Tylenol) 650 mg Q4H PRN ORAL fever 05/17/17 17:00 06/16/17 16:59 Al Hydroxide/Mg Hydroxide (Mylanta II) 30 ml Q6H PRN ORAL dyspepsia 05/17/17 17:00 06/16/17 16:59 Dextrose STAT PRN IV Hypoglycemia 05/17/17 17:00 06/16/17 16:59 Dextrose/ Electrolytes (D5 0.45%NS W/ KCl 20mEq) 1,000 ml @ 75 mls/hr [id number] IV 05/18/17 17:15 06/17/17 17:14 05/18/17 16:58 Diphenhydramine HCl (Benadryl) 25 mg Q6H PRN ORAL Itching/Pruritis 05/17/17 17:00 06/16/17 16:59 Heparin Sodium (Porcine) (Heparin 5000 units/ml) 5,000 units EVERY 12 HOURS SUBQ 05/17/17 21:00 06/16/17 20:59 05/18/17 08:38 Lisinopril (Prinivil) 10 mg DAILY ORAL 05/18/17 09:00 06/17/17 08:59 05/19/17 08:41 Morphine Sulfate (Morphine Sulfate) 2 mg EVERY 4 HOURS PRN IVP severe Pain (Pain Scale 7-10) 05/17/17 17:00 05/24/17 16:59 05/19/17 08:42 Nitroglycerin (Ntg) 0.4 mg Q5M X 3 DOSES PRN SL Prn Chest Pain 05/17/17 17:00 06/16/17 16:59 Ondansetron HCl (Zofran) 4 mg Q6H PRN IVP Nausea & Vomiting 05/17/17 17:00 06/16/17 16:59 Pantoprazole 40 mg 40 mg DAILY IVP 05/18/17 09:00 06/17/17 08:59 05/19/17 08:41 Piperacillin Sod/ Tazobactam Sod/ Sodium Chloride (Zosyn/Sodium Chloride) 110 ml @ 27.5 mls/hr EVERY 8 HOURS IVPB 05/17/17 22:00 05/24/17 21:59 05/19/17 05:18 Polyethylene Glycol (Miralax) 17 gm HSPRN PRN ORAL Constipation 05/17/17 17:00 06/16/17 16:59 Quetiapine Fumarate (SEROquel) 300 mg BEDTIME ORAL 05/17/17 21:00 06/16/17 20:59 05/18/17 20:26 Temazepam (Restoril) 15 mg HSPRN PRN ORAL Insomnia 05/17/17 17:00 05/24/17 16:59 Allergies: Coded Allergies: NO KNOWN ALLERGIES (Unverified Allergy, Unknown, 09/13/15) ROS Limited/Unobtainable: No Constitutional: Reports: no symptoms HEENT: Reports: no symptoms Cardiovascular: Reports: no symptoms Respiratory: Reports: no symptoms Gastrointestinal/Abdominal: Reports: abdomen distended, abdominal pain Genitourinary: Reports: no symptoms Neurologic/Psychiatric: Reports: no symptoms Subjective 57 YO M admitted with abdominal pain; now Duodenal mass. S/P endoscopy today 05/19/17. Cover for Int Dirk-Dr Redding Objective Last Vital Signs Date Time Temp Pulse Resp B/P Pulse Ox O2 Delivery O2 Flow Rate FiO2 05/19/17 12:00 97.3 63 19 152/97 100 Room Air 05/19/17 11:30 3.0 General Appearance: WD/WN, no apparent distress, alert EENT: PERRL/EOMI, normal ENT inspection Neck: non-tender, normal alignment, supple, normal inspection Cardiovascular: normal peripheral pulses, normal rate, regular rhythm, no gallop/murmur, no JVD Respiratory/Chest: chest wall non-tender, lungs clear, normal breath sounds, no respiratory distress, no accessory muscle use Abdomen: decreased bowel sounds, distended, guarding, tender Extremities: normal range of motion, non-tender 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, no motor/sensory deficits Skin: normal pigmentation, warm/dry Laboratory Tests Test 05/19/17 05:50 White Blood Count 6.3 K/UL (4.8-10.8) Red Blood Count 4.93 M/UL (4.70-6.10) Hemoglobin 13.4 G/DL (14.2-18.0) L Hematocrit 42.1 % (42.0-52.0) Mean Corpuscular Volume 85 FL (80-99) Mean Corpuscular Hemoglobin 27.1 PG (27.0-31.0) Mean Corpuscular Hemoglobin Concent 31.7 G/DL (32.0-36.0) L Red Cell Distribution Width 14.0 % (11.6-14.8) Platelet Count 215 K/UL (150-450) Mean Platelet Volume 8.5 FL (6.5-10.1) Neutrophils (%) (Auto) 67.0 % (45.0-75.0) Lymphocytes (%) (Auto) 20.5 % (20.0-45.0) Monocytes (%) (Auto) 8.7 % (1.0-10.0) Eosinophils (%) (Auto) 2.7 % (0.0-3.0) Basophils (%) (Auto) 1.2 % (0.0-2.0) Prothrombin Time 9.8 SEC (9.30-11.50) Prothromb Time International Ratio 0.9 (0.9-1.1) Activated Partial Thromboplast Time 28 SEC (23-33) Sodium Level 138 mEQ/L (135-145) Potassium Level 3.5 mEQ/L (3.4-4.9) Chloride Level 96 mEQ/L (98-107) L Carbon Dioxide Level 26 mEQ/L (20-30) Anion Gap 16 (5-15) H Blood Urea Nitrogen 7 mg/dL (7-23) Creatinine 0.9 mg/dL (0.7-1.2) Estimat Glomerular Filtration Rate > 60 mL/min (>60) Glucose Level 101 mg/dL (74-106) Calcium Level 9.8 mg/dL (8.6-10.2) Triglycerides Level 90 mg/dL (< 150) Cholesterol Level 197 mg/dL (< 200) LDL Cholesterol 94 mg/dL (60-99) HDL Cholesterol 85 mg/dL (> 60) H Cholesterol/HDL Ratio 2.3 (3.3-4.4) L Amylase Level 99 U/L (10-110) Lipase 156 U/L (< 60) H Intake and Output 05/18/17 05/19/17 19:00 07:00 Intake Total 315 ml 512.5 ml Output Total 700 ml Balance -385 ml 512.5 ml Intake Oral 240 ml IV Total 75 ml 512.5 ml Output Urine Total 700 ml # Voids 3 # Bowel Movements 2 Assessment/Plan Problem List: (1) Abdominal distention (2) Gastritis Assessment & Plan: see GI note. Continue protonix (3) Crohn's disease Assessment & Plan: S/P resection (4) Bipolar depression Assessment & Plan: Continue seroquel (5) Abdominal pain (6) Hypertensive urgency Assessment & Plan: Continue lisinopril (7) Hypokalemia Assessment & Plan: Resolved on IV fluids. (8) Hyponatremia Assessment & Plan: resolved on IV fluids. (9) Pancreatic mass Assessment & Plan: Await esophageal ultrasound on 05/20/17 Status: not improved AUBREY AKINS May 19, 2017 13:24
--- NOTE | 2017-05-19 16:50 | Pulmonology Progress Note ---
Assessment/Plan Problems: (1) Mass of duodenum (2) Bipolar disorder (3) Seizure disorder (4) diverticulitis (5) Elevated CEA Assessment/Plan egd done, no mass seen ? CT guided biopsy pain control f/u CEA Subjective ROS Limited/Unobtainable: No Interval Events: had endoscopy HEENT: Repors: no symptoms Allergies: Coded Allergies: NO KNOWN ALLERGIES (Unverified Allergy, Unknown, 09/13/15) Objective Last 24 Hour Vital Signs Date Time Temp Pulse Resp B/P Pulse Ox O2 Delivery O2 Flow Rate FiO2 05/19/17 16:00 97.7 63 21 138/92 99 Room Air 05/19/17 13:47 140/90 05/19/17 12:00 97.3 63 19 152/97 100 Room Air 05/19/17 11:30 98.0 95 14 159/100 99 Nasal Cannula 3.0 05/19/17 11:20 100 13 158/110 99 Nasal Cannula 3.0 05/19/17 11:20 83 25 100 05/19/17 11:19 108 30 99 05/19/17 11:15 91 18 160/95 99 Nasal Cannula 3.0 05/19/17 11:10 97.7 73 24 160/109 99 Nasal Cannula 3.0 05/19/17 08:41 152/104 05/19/17 08:00 97.5 80 20 152/104 100 Room Air 05/18/17 20:33 148/84 05/18/17 20:00 97.7 77 21 159/82 96 Room Air 77 Intake and Output 05/18/17 05/19/17 19:00 07:00 Intake Total 315 ml 512.5 ml Output Total 700 ml Balance -385 ml 512.5 ml Intake Oral 240 ml IV Total 75 ml 512.5 ml Output Urine Total 700 ml # Voids 3 # Bowel Movements 2 General Appearance: WD/WN HEENT: normocephalic, atraumatic Respiratory/Chest: chest wall non-tender, lungs clear Abdomen: normal bowel sounds, soft, non tender Genitourinary: normal external genitalia Extremities: no clubbing 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 Lymphatic: no neck adenopathy Laboratory Tests 05/19/17 05:50: White Blood Count 6.3, Red Blood Count 4.93, Hemoglobin 13.4L, Hematocrit 42.1, Mean Corpuscular Volume 85, Mean Corpuscular Hemoglobin 27.1, Mean Corpuscular Hemoglobin Concent 31.7L, Red Cell Distribution Width 14.0, Platelet Count 215, Mean Platelet Volume 8.5, Neutrophils (%) (Auto) 67.0, Lymphocytes (%) (Auto) 20.5, Monocytes (%) (Auto) 8.7, Eosinophils (%) (Auto) 2.7, Basophils (%) (Auto ) 1.2, Prothrombin Time 9.8, Prothromb Time International Ratio 0.9, Activated Partial Thromboplast Time 28, Sodium Level 138, Potassium Level 3.5, Chloride Level 96L, Carbon Dioxide Level 26, Anion Gap 16H, Blood Urea Nitrogen 7, Creatinine 0.9, Estimat Glomerular Filtration Rate > 60, Glucose Level 101, Calcium Level 9.8, Triglycerides Level 90, Cholesterol Level 197, LDL Cholesterol 94, HDL Cholesterol 85H, Cholesterol/HDL Ratio 2.3L, Amylase Level 99, Lipase 156H Current Medications Medications (Trade) Dose Ordered Sig/Ariela Route PRN Reason Start Time Stop Time Status Last Admin Dose Admin Acetaminophen (Tylenol) 650 mg Q4H PRN ORAL fever 05/17/17 17:00 06/16/17 16:59 Al Hydroxide/Mg Hydroxide (Mylanta II) 30 ml Q6H PRN ORAL dyspepsia 05/17/17 17:00 06/16/17 16:59 Dextrose STAT PRN IV Hypoglycemia 05/17/17 17:00 06/16/17 16:59 Dextrose/ Electrolytes (D5 0.45%NS W/ KCl 20mEq) 1,000 ml @ 75 mls/hr [id number] IV 05/18/17 17:15 06/17/17 17:14 05/18/17 16:58 Diphenhydramine HCl (Benadryl) 25 mg Q6H PRN ORAL Itching/Pruritis 05/17/17 17:00 06/16/17 16:59 Heparin Sodium (Porcine) (Heparin 5000 units/ml) 5,000 units EVERY 12 HOURS SUBQ 05/17/17 21:00 06/16/17 20:59 05/18/17 08:38 Lisinopril (Prinivil) 10 mg DAILY ORAL 05/18/17 09:00 06/17/17 08:59 05/19/17 08:41 Morphine Sulfate (Morphine Sulfate) 2 mg EVERY 4 HOURS PRN IVP severe Pain (Pain Scale 7-10) 05/17/17 17:00 05/24/17 16:59 05/19/17 15:40 Nitroglycerin (Ntg) 0.4 mg Q5M X 3 DOSES PRN SL Prn Chest Pain 05/17/17 17:00 06/16/17 16:59 Ondansetron HCl (Zofran) 4 mg Q6H PRN IVP Nausea & Vomiting 05/17/17 17:00 06/16/17 16:59 Pantoprazole 40 mg 40 mg DAILY IVP 05/18/17 09:00 06/17/17 08:59 05/19/17 08:41 Piperacillin Sod/ Tazobactam Sod/ Sodium Chloride (Zosyn/Sodium Chloride) 110 ml @ 27.5 mls/hr EVERY 8 HOURS IVPB 05/17/17 22:00 05/24/17 21:59 05/19/17 13:38 Polyethylene Glycol (Miralax) 17 gm HSPRN PRN ORAL Constipation 05/17/17 17:00 06/16/17 16:59 Quetiapine Fumarate (SEROquel) 300 mg BEDTIME ORAL 05/17/17 21:00 06/16/17 20:59 05/18/17 20:26 Temazepam (Restoril) 15 mg HSPRN PRN ORAL Insomnia 05/17/17 17:00 05/24/17 16:59 DEBBIE WONG May 19, 2017 16:50
--- NOTE | 2017-05-19 17:01 | Procedure Note ---
DATE OF PROCEDURE: 05/19/2017 SURGEON: Harvinder Benavides M.D. ANESTHESIOLOGIST: Eli Gay CRNA and also REHANA Sims. PROCEDURE: Upper endoscopy with biopsy. INSTRUMENT: Olympus adult flexible upper endoscope. INDICATION: Possible duodenal mass seen on the CT scan. The procedure, risks, benefits, and possible consequences, including hemorrhage, aspiration, perforation and infection, and alternative treatments, were explained to the patient/legal guardian by Dr. Harvinder Benavides and the patient/legal guardian understood and accepted these risks. PROCEDURE: After informed consent was obtained and the patient was adequately sedated, Olympus upper endoscope was advanced from the mouth into the second portion of the duodenum and retroflexion was performed in the stomach. The patient has evidence of gastritis. Random biopsy from antrum of the stomach was obtained to rule out H. pylori infection. There was no obvious mass seen in the duodenum. We advanced the scope all the way to the third portion of duodenum and there was no obvious mass seen. At this time, the upper endoscope was retrieved and the procedure was terminated. SUMMARY OF FINDINGS: 1. Diffuse gastritis, status post biopsy. 2. No obvious duodenal mass. RECOMMENDATIONS: Plan to do endoscopic ultrasound tomorrow and biopsy of the mass. Harvinder Benavides M.D. DR: GEETHA JOB#: [id number] CC:
[2017-05-20] VITALS (9 sets, daily range): BP systolic 131–162; BP diastolic 85–113
[2017-05-20] MEDS: Piperacillin/Tazobactam 3.375 GM in NS 110 ML IVPB SCH ×3 (05:31→22:00)
[2017-05-20 06:33] LABS: BASOPHILS % (AUTO) 1.4 % (0.0-2.0); LYMPHOCYTES % (AUTO) 27.6 % (20.0-45.0); MEAN CORPUSCULAR HEMOGLOBIN 27.7 PG (27.0-31.0); MEAN CORPUSCULAR HGB CONC 32.2 G/DL (32.0-36.0); MEAN CORPUSCULAR VOLUME 86 FL (80-99); MEAN PLATELET VOLUME 8.1 FL (6.5-10.1); MONOCYTES % (AUTO) 11.1 % (1.0-10.0); PLATELET COUNT 177 K/UL (150-450); RED BLOOD COUNT 4.44 M/UL (4.70-6.10); RED CELL DISTRIBUTION WIDTH 14.3 % (11.6-14.8); WHITE BLOOD COUNT 5.8 K/UL (4.8-10.8)
[2017-05-20 07:06] LABS: ALANINE AMINOTRANSFERASE 31 U/L (3-41); ALBUMIN/GLOBULIN RATIO 1.1 (1.0-2.7); AMYLASE 86 U/L (10-110); ANION GAP 14 (5-15); ASPARTATE AMINO TRANSFERASE 39 U/L (5-40); CALCIUM 9.4 mg/dL (8.6-10.2); CARBON DIOXIDE 25 mEQ/L (20-30); CHLORIDE 98 mEQ/L (98-107); CREATININE 0.9 mg/dL (0.7-1.2); GLOMERULAR FILTRATION RATE > 60 mL/min (>60); HEMOLYSIS 2; LIPASE 67 U/L (< 60); POTASSIUM 3.2 mEQ/L (3.4-4.9); SODIUM 137 mEQ/L (135-145); TOTAL PROTEIN 7.2 g/dL (6.6-8.7)
[2017-05-20] MEDS: Lisinopril 20mg tab ORAL SCH (09:00)
[2017-05-20] MEDS: Pantoprazole Inj IVP SCH (09:00)
[2017-05-20] MEDS: Heparin 5000 units/ml inj SUBQ SCH ×2 (09:00→21:25)
[2017-05-20] MEDS: D5 1/2NS w/KCl 20mEq 1,000 ML IV SCH ×2 (09:15→22:35)
--- NOTE | 2017-05-20 12:33 | Pre-Procedure Note/Attestation ---
Pre-Procedure Note/Attestation Complete Prior to Procedure Planned Procedure: not applicable Procedure Narrative: eus Indications for Procedure Pre-Operative Diagnosis: pancreatic mass Attestation I attest that I discussed the nature of the procedure; its benefits; risks and complications; and alternatives (and the risks and benefits of such alternatives ), prior to the procedure, with the patient (or the patient's legal b2b sales representative). I attest that, if there was a reasonable possibility of needing a blood transfusion, the patient (or the patient's legal b2b sales representative) was given the [facility] standardized written summary, pursuant to the [place] Blood Safety Act ([place] Health and Safety Code # 1645, as amended). I attest that I re-evaluated the patient just prior to the surgery and that there has been no change in the patient's H&P, except as documented below: DORIAN COLLINS May 20, 2017 12:33
[2017-05-20] MEDS ORDERED: NS 550ML IV ONE (12:35)
[2017-05-20] MEDS ORDERED: Heplock Flush 100 units/ml 3 ml syr ONE (12:41)
--- NOTE | 2017-05-20 13:18 | Anethesia Preoperative Eval ---
Anesthesia Pre-op PMH/ROS General Date of Evaluation: May 20, 2017 Time of Evaluation: 13:17 Anesthesiologist: raphael ASA Score: ASA 3 Mallampati Score Class I : Soft palate, uvula, fauces, pillars visible Class II: Soft palate, uvula, fauces visible Class III: Soft palate, base of uvula visible Class IV: Only hard plate visible Mallampati Classification: Class II Surgeon: abbie Diagnosis: pancreatic mas Surgical Procedure: EUS Anesthesia History: none Family History: no anesthesia problems Allergies: Coded Allergies: NO KNOWN ALLERGIES (Unverified Allergy, Unknown, 09/13/15) Medications: see eMAR Past Medical History Cardiovascular: Reports: CAD, HTN Pulmonary: Denies: COPD, GLENDA, asthma, other Gastrointestinal/Genitourinary: Reports: GERD Neurologic/Psychiatric: Reports: depression/anxiety Endocrine: Denies: DM, hypothyroidism, other, steroids HEENT: Denies: [place] (L), [place] (R), cataract (L), cataract (R), glaucoma, other Hematology/Immune: Reports: anemia Musculoskeletal/Integumentary: Denies: DDD, DJD, OA, RA, edema, other PMH Narrative: colon mass, chrons Anesthesia Pre-op Phys. Exam Physician Exam Last Vital Signs Date Time Temp Pulse Resp B/P Pulse Ox O2 Delivery O2 Flow Rate FiO2 05/20/17 12:00 98.0 77 20 162/113 Room Air 05/20/17 04:00 100 05/19/17 11:30 3.0 Constitutional: NAD Neurologic: CN 2-12 intact Cardiovascular: RRR Respiratory: CTA Gastrointestinal: S/NT/ND Airway Exam Mallampati Score: Class II ROM: full Dentures: no lower, no upper Anesthesia Pre-op A/P Labs Hematology Test 05/20/17 05:00 White Blood Count 5.8 K/UL (4.8-10.8) Red Blood Count 4.44 M/UL (4.70-6.10) L Hemoglobin 12.3 G/DL (14.2-18.0) L Hematocrit 38.2 % (42.0-52.0) L Mean Corpuscular Volume 86 FL (80-99) Mean Corpuscular Hemoglobin 27.7 PG (27.0-31.0) Mean Corpuscular Hemoglobin Concent 32.2 G/DL (32.0-36.0) Red Cell Distribution Width 14.3 % (11.6-14.8) Platelet Count 177 K/UL (150-450) Mean Platelet Volume 8.1 FL (6.5-10.1) Neutrophils (%) (Auto) 56.0 % (45.0-75.0) Lymphocytes (%) (Auto) 27.6 % (20.0-45.0) Monocytes (%) (Auto) 11.1 % (1.0-10.0) H Eosinophils (%) (Auto) 4.0 % (0.0-3.0) H Basophils (%) (Auto) 1.4 % (0.0-2.0) Chemistry Test 05/20/17 05:00 Sodium Level 137 mEQ/L (135-145) Potassium Level 3.2 mEQ/L (3.4-4.9) L Chloride Level 98 mEQ/L (98-107) Carbon Dioxide Level 25 mEQ/L (20-30) Anion Gap 14 (5-15) Blood Urea Nitrogen 11 mg/dL (7-23) Creatinine 0.9 mg/dL (0.7-1.2) Estimat Glomerular Filtration Rate > 60 mL/min (>60) Glucose Level 105 mg/dL (74-106) Calcium Level 9.4 mg/dL (8.6-10.2) Total Bilirubin 0.5 mg/dL (0.0-1.2) Aspartate Amino Transf (AST/SGOT) 39 U/L (5-40) Alanine Aminotransferase (ALT/SGPT) 31 U/L (3-41) Alkaline Phosphatase 53 U/L (40-129) Total Protein 7.2 g/dL (6.6-8.7) Albumin 3.9 g/dL (3.5-5.2) Globulin 3.3 g/dL Albumin/Globulin Ratio 1.1 (1.0-2.7) Amylase Level 86 U/L (10-110) Lipase 67 U/L (< 60) H Carcinoembryonic Antigen 5.2 ng/mL H CA 19-9 Antigen 26.83 U/mL (< 37) Studies Pre-op Studies: EKG - sr Risk Assessment & Plan Plan: mac Status Change Before Surgery: No Pre-Antibiotics Drug: none TARRILLION,GUSTAVO VETERINARY BACTERIOLOGIST May 20, 2017 13:18
--- NOTE | 2017-05-20 13:28 | Immediate Post-Op Evaluation ---
Immediate Post-Op Evalulation Immediate Post-Op Evalulation Procedure: EUS Date of Evaluation: May 20, 2017 Time of Evaluation: 13:20 Blood Pressure Systolic: 136 Blood Pressure Diastolic: 88 Pulse Rate: 67 Respiratory Rate: 14 O2 Sat by Pulse Oximetry: 100 Temperature (Fahrenheit): 97.8 Nausea: No Vomiting: No Complications none Patient Status: awake, reacts, patent Hydration Status: adequate Drug: none GUSTAVO HERNÁNDEZ CRNA May 20, 2017 13:28
--- NOTE | 2017-05-20 13:30 | 48 Hour Post Anesthesia Eval ---
Post Anesthesia Evaluation Procedure: EUS Date of Evaluation: May 20, 2017 Time of Evaluation: 13:30 Blood Pressure Systolic: 136 0: 88 Pulse Rate: 68 Respiratory Rate: 14 O2 Sat by Pulse Oximetry: 100 Airway: patent Nausea: No Vomiting: No Hydration Status: adequate Cardiopulmonary Status: stable Mental Status/LOC: patient returned to baseline Post-Anesthesia Complications: none Follow-up care needed: N/A GUSTAVO HERNÁNDEZ CRNA May 20, 2017 13:30
[2017-05-20] MEDS ORDERED: Haloperidol 5mg/ml Inj IM PRN (15:00)
[2017-05-20] MEDS ORDERED: Tubing IV Secondary IV ONE (15:59)
[2017-05-20] MEDS ORDERED: D5 1/2NS 1000ml IV ONE (15:59)
--- NOTE | 2017-05-20 18:50 | Internal Med Progress Note ---
Subjective Date of Service: May 20, 2017 Physician Name Aubrey Akins Attending Physician Yuan Redding MD Current Medications Medications (Trade) Dose Ordered Sig/Ariela Route PRN Reason Start Time Stop Time Status Last Admin Dose Admin Acetaminophen (Tylenol) 650 mg Q4H PRN ORAL fever 05/17/17 17:00 06/16/17 16:59 Al Hydroxide/Mg Hydroxide (Mylanta II) 30 ml Q6H PRN ORAL dyspepsia 05/17/17 17:00 06/16/17 16:59 Clonidine HCl (Catapres) 0.1 mg Q6H PRN ORAL SBP > 160 05/20/17 13:30 06/19/17 13:29 Dextrose STAT PRN IV Hypoglycemia 05/17/17 17:00 06/16/17 16:59 Dextrose/ Electrolytes (D5 0.45%NS W/ KCl 20mEq) 1,000 ml @ 75 mls/hr [id number] IV 05/18/17 17:15 06/17/17 17:14 05/19/17 20:03 Diphenhydramine HCl (Benadryl) 25 mg Q6H PRN ORAL Itching/Pruritis 05/17/17 17:00 06/16/17 16:59 Haloperidol Lactate (Haldol) 5 mg Q4H PRN IM Agitation 05/20/17 15:00 06/19/17 14:59 05/20/17 14:55 Heparin Sodium (Porcine) (Heparin 5000 units/ml) 5,000 units EVERY 12 HOURS SUBQ 05/17/17 21:00 06/16/17 20:59 05/18/17 08:38 Lisinopril (Prinivil) 10 mg DAILY ORAL 05/18/17 09:00 06/17/17 08:59 05/19/17 08:41 Morphine Sulfate (Morphine Sulfate) 2 mg EVERY 4 HOURS PRN IVP severe Pain (Pain Scale 7-10) 05/17/17 17:00 05/24/17 16:59 05/19/17 21:13 Nitroglycerin (Ntg) 0.4 mg Q5M X 3 DOSES PRN SL Prn Chest Pain 05/17/17 17:00 06/16/17 16:59 Ondansetron HCl (Zofran) 4 mg Q6H PRN IVP Nausea & Vomiting 05/17/17 17:00 06/16/17 16:59 Pantoprazole (Protonix) 40 mg DAILY ORAL 05/21/17 09:00 06/20/17 08:59 Piperacillin Sod/ Tazobactam Sod 3.375 gm/Sodium Chloride 110 ml @ 27.5 mls/hr EVERY 8 HOURS IVPB 05/17/17 22:00 05/24/17 21:59 05/20/17 15:38 Polyethylene Glycol (Miralax) 17 gm HSPRN PRN ORAL Constipation 05/17/17 17:00 06/16/17 16:59 Quetiapine Fumarate (SEROquel) 350 mg QHS ORAL 05/20/17 21:00 06/19/17 20:59 Temazepam (Restoril) 15 mg HSPRN PRN ORAL Insomnia 05/17/17 17:00 05/24/17 16:59 05/20/17 00:59 Allergies: Coded Allergies: NO KNOWN ALLERGIES (Unverified Allergy, Unknown, 09/13/15) ROS Limited/Unobtainable: No Constitutional: Reports: no symptoms HEENT: Reports: no symptoms Cardiovascular: Reports: no symptoms Respiratory: Reports: no symptoms Gastrointestinal/Abdominal: Reports: abdominal pain Genitourinary: Reports: no symptoms Neurologic/Psychiatric: Reports: no symptoms Subjective 57 YO M admitted with abdominal pain; now Duodenal mass. S/P endoscopy . S/P esophageal ultrasound 05/20/17. Cover for Carla Cavazos-Dr Redding Objective Last Vital Signs Date Time Temp Pulse Resp B/P Pulse Ox O2 Delivery O2 Flow Rate FiO2 05/20/17 13:45 97.8 60 20 145/87 99 Room Air 05/20/17 13:40 2.0 Laboratory Tests Test 05/20/17 05:00 White Blood Count 5.8 K/UL (4.8-10.8) Red Blood Count 4.44 M/UL (4.70-6.10) L Hemoglobin 12.3 G/DL (14.2-18.0) L Hematocrit 38.2 % (42.0-52.0) L Mean Corpuscular Volume 86 FL (80-99) Mean Corpuscular Hemoglobin 27.7 PG (27.0-31.0) Mean Corpuscular Hemoglobin Concent 32.2 G/DL (32.0-36.0) Red Cell Distribution Width 14.3 % (11.6-14.8) Platelet Count 177 K/UL (150-450) Mean Platelet Volume 8.1 FL (6.5-10.1) Neutrophils (%) (Auto) 56.0 % (45.0-75.0) Lymphocytes (%) (Auto) 27.6 % (20.0-45.0) Monocytes (%) (Auto) 11.1 % (1.0-10.0) H Eosinophils (%) (Auto) 4.0 % (0.0-3.0) H Basophils (%) (Auto) 1.4 % (0.0-2.0) Sodium Level 137 mEQ/L (135-145) Potassium Level 3.2 mEQ/L (3.4-4.9) L Chloride Level 98 mEQ/L (98-107) Carbon Dioxide Level 25 mEQ/L (20-30) Anion Gap 14 (5-15) Blood Urea Nitrogen 11 mg/dL (7-23) Creatinine 0.9 mg/dL (0.7-1.2) Estimat Glomerular Filtration Rate > 60 mL/min (>60) Glucose Level 105 mg/dL (74-106) Calcium Level 9.4 mg/dL (8.6-10.2) Total Bilirubin 0.5 mg/dL (0.0-1.2) Aspartate Amino Transf (AST/SGOT) 39 U/L (5-40) Alanine Aminotransferase (ALT/SGPT) 31 U/L (3-41) Alkaline Phosphatase 53 U/L (40-129) Total Protein 7.2 g/dL (6.6-8.7) Albumin 3.9 g/dL (3.5-5.2) Globulin 3.3 g/dL Albumin/Globulin Ratio 1.1 (1.0-2.7) Amylase Level 86 U/L (10-110) Lipase 67 U/L (< 60) H Carcinoembryonic Antigen 5.2 ng/mL H CA 19-9 Antigen 26.83 U/mL (< 37) Intake and Output 05/19/17 05/20/17 19:00 07:00 Intake Total 4460.0 ml 1112.5 ml Balance 4460.0 ml 1112.5 ml Intake Oral 800 ml 600 ml IV Total 3660.0 ml 512.5 ml # Voids 3 4 # Bowel Movements 2 3 Objective General Appearance: WD/WN, no apparent distress, alert EENT: PERRL/EOMI, normal ENT inspection Neck: non-tender, normal alignment, supple, normal inspection Cardiovascular: normal peripheral pulses, normal rate, regular rhythm, no gallop/murmur, no JVD Respiratory/Chest: chest wall non-tender, lungs clear, normal breath sounds, no respiratory distress, no accessory muscle use Abdomen: decreased bowel sounds, distended, guarding, tender Extremities: normal range of motion, non-tender 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 Continue protonix (3) Crohn's disease Assessment & Plan: S/P resection (4) Bipolar depression Assessment & Plan: Continue seroquel (5) Abdominal pain (6) Hypertensive urgency Assessment & Plan: Continue lisinopril (7) Hypokalemia Assessment & Plan: Resolved on IV fluids. (8) Hyponatremia Assessment & Plan: resolved on IV fluids. (9) Pancreatic mass Assessment & Plan: S/P esophageal ultrasound on 05/20/17-await results Status: not improved AUBREY AKINS May 20, 2017 18:50
--- NOTE | 2017-05-20 20:46 | Consultation ---
DATE OF CONSULTATION: 05/20/2017 HISTORY OF PRESENT ILLNESS: The patient is a 57-year-old male with a history of schizoaffective disorder, who has been admitted to the hospital with chief complaint of abdominal pain. The patient is on one-to-one. During the evaluation, the patient is confused, disorganized and is delusional. He knows the location as well as the date, however, he is confused about the situation he is in. He believes his sitter is in the hospital and had a baby and his bed is bed of the child. The patient is a poor historian. He stated that he is and his is involved in his life. The patient is having poor insight and judgment into his mental condition. PAST PSYCHIATRIC HISTORY: He has a history of bipolar disorder versus schizoaffective disorder. PAST MEDICAL HISTORY: Crohn's disease and hypertension. MEDICATIONS: At home includes Coreg as well as Seroquel 300 mg at bedtime. ALLERGIES: No known drug allergies. SOCIAL HISTORY: The patient is and disabled. SUBSTANCE ABUSE HISTORY: Significant for tobacco use as well as alcohol. MENTAL STATUS EXAMINATION: The patient is alert and oriented times self, place and date. Mood is depressed. Affect is constricted, congruent with mood. Thought process is concrete. Thought content, there is no suicidal or homicidal ideations. The patient is delusional. His insight and judgment is poor. ASSESSMENT: AXIS I Schizoaffective disorder, bipolar type. AXIS II Deferred. AXIS III As above. AXIS IV Low. AXIS V Global assessment of functioning is 20. PLAN: 1. Seroquel will be increased to 350 mg at bedtime. 2. The patient is on Haldol p.r.n. 3. We will continue one-to-one. Jose Elias Castañeda M.D. DR: DWIGHT JOB#: [id number] CC:
--- NOTE | 2017-05-20 22:04 | Pulmonology Progress Note ---
Assessment/Plan Problems: (1) Mass of duodenum (2) Bipolar disorder (3) Seizure disorder (4) diverticulitis (5) Elevated CEA Assessment/Plan egd done, no mass seen EUS done today, ? CT guided biopsy pain control f/u CEA Subjective ROS Limited/Unobtainable: No Interval Events: was agitated earlier, calmer now Allergies: Coded Allergies: NO KNOWN ALLERGIES (Unverified Allergy, Unknown, 09/13/15) Objective Last 24 Hour Vital Signs Date Time Temp Pulse Resp B/P Pulse Ox O2 Delivery O2 Flow Rate FiO2 05/20/17 20:00 97.7 74 20 156/94 99 Room Air 05/20/17 13:45 97.8 60 20 145/87 99 Room Air 05/20/17 13:40 60 20 141/85 100 Nasal Cannula 2.0 05/20/17 13:30 68 14 100 05/20/17 13:28 67 14 100 05/20/17 13:25 64 20 138/85 100 Nasal Cannula 2.0 05/20/17 13:20 70 20 135/89 100 Nasal Cannula 2.0 05/20/17 13:15 97.8 82 20 131/93 100 Nasal Cannula 2.0 05/20/17 12:00 98.0 77 20 162/113 Room Air 05/20/17 08:00 98.1 87 20 161/99 Room Air 05/20/17 04:00 97.3 85 20 147/95 100 Room Air 05/19/17 23:58 97.9 75 18 120/72 96 Room Air Intake and Output 05/19/17 05/20/17 19:00 07:00 Intake Total 4460.0 ml 1112.5 ml Balance 4460.0 ml 1112.5 ml Intake Oral 800 ml 600 ml IV Total 3660.0 ml 512.5 ml # Voids 3 4 # Bowel Movements 2 3 General Appearance: WD/WN HEENT: normocephalic, anicteric Respiratory/Chest: chest wall non-tender, lungs clear Cardiovascular: normal peripheral pulses, normal rate Abdomen: normal bowel sounds, soft, non tender Extremities: no cyanosis Skin: no rash Laboratory Tests 05/20/17 05:00: White Blood Count 5.8, Red Blood Count 4.44L, Hemoglobin 12.3L, Hematocrit 38.2L , Mean Corpuscular Volume 86, Mean Corpuscular Hemoglobin 27.7, Mean Corpuscular Hemoglobin Concent 32.2, Red Cell Distribution Width 14.3, Platelet Count 177, Mean Platelet Volume 8.1, Neutrophils (%) (Auto) 56.0, Lymphocytes (% ) (Auto) 27.6, Monocytes (%) (Auto) 11.1H, Eosinophils (%) (Auto) 4.0H, Basophils (%) (Auto) 1.4, Sodium Level 137, Potassium Level 3.2L, Chloride Level 98, Carbon Dioxide Level 25, Anion Gap 14, Blood Urea Nitrogen 11, Creatinine 0.9, Estimat Glomerular Filtration Rate > 60, Glucose Level 105, Calcium Level 9.4, Total Bilirubin 0.5, Aspartate Amino Transf (AST/SGOT) 39, Alanine Aminotransferase (ALT/SGPT) 31, Alkaline Phosphatase 53, Total Protein 7.2, Albumin 3.9, Globulin 3.3, Albumin/Globulin Ratio 1.1, Amylase Level 86, Lipase 67H, Carcinoembryonic Antigen 5.2H, CA 19-9 Antigen 26.83 Current Medications Medications (Trade) Dose Ordered Sig/Ariela Route PRN Reason Start Time Stop Time Status Last Admin Dose Admin Acetaminophen (Tylenol) 650 mg Q4H PRN ORAL fever 05/17/17 17:00 06/16/17 16:59 Al Hydroxide/Mg Hydroxide (Mylanta II) 30 ml Q6H PRN ORAL dyspepsia 05/17/17 17:00 06/16/17 16:59 Clonidine HCl (Catapres) 0.1 mg Q6H PRN ORAL SBP > 160 05/20/17 13:30 06/19/17 13:29 Dextrose STAT PRN IV Hypoglycemia 05/17/17 17:00 06/16/17 16:59 Dextrose/ Electrolytes (D5 0.45%NS W/ KCl 20mEq) 1,000 ml @ 75 mls/hr [id number] IV 05/18/17 17:15 06/17/17 17:14 05/19/17 20:03 Diphenhydramine HCl (Benadryl) 25 mg Q6H PRN ORAL Itching/Pruritis 05/17/17 17:00 06/16/17 16:59 Haloperidol Lactate (Haldol) 5 mg Q4H PRN IM Agitation 05/20/17 15:00 06/19/17 14:59 05/20/17 14:55 Heparin Sodium (Porcine) (Heparin 5000 units/ml) 5,000 units EVERY 12 HOURS SUBQ 05/17/17 21:00 06/16/17 20:59 05/20/17 21:25 Lisinopril (Prinivil) 10 mg DAILY ORAL 05/18/17 09:00 06/17/17 08:59 05/19/17 08:41 Morphine Sulfate (Morphine Sulfate) 2 mg EVERY 4 HOURS PRN IVP severe Pain (Pain Scale 7-10) 05/17/17 17:00 05/24/17 16:59 05/19/17 21:13 Nitroglycerin (Ntg) 0.4 mg Q5M X 3 DOSES PRN SL Prn Chest Pain 05/17/17 17:00 06/16/17 16:59 Ondansetron HCl (Zofran) 4 mg Q6H PRN IVP Nausea & Vomiting 05/17/17 17:00 06/16/17 16:59 Pantoprazole (Protonix) 40 mg DAILY ORAL 05/21/17 09:00 06/20/17 08:59 Piperacillin Sod/ Tazobactam Sod 3.375 gm/Sodium Chloride 110 ml @ 27.5 mls/hr EVERY 8 HOURS IVPB 05/17/17 22:00 05/24/17 21:59 05/20/17 15:38 Polyethylene Glycol (Miralax) 17 gm HSPRN PRN ORAL Constipation 05/17/17 17:00 06/16/17 16:59 Quetiapine Fumarate (SEROquel) 350 mg QHS ORAL 05/20/17 21:00 06/19/17 20:59 05/20/17 21:16 Temazepam (Restoril) 15 mg HSPRN PRN ORAL Insomnia 05/17/17 17:00 05/24/17 16:59 05/20/17 00:59 DEBBIE WONG May 20, 2017 22:04
--- NOTE | 2017-05-20 22:31 | Procedure Note ---
DATE OF PROCEDURE: 05/20/2017 SURGEON: Harvinder Benavides M.D. PROCEDURE: Upper endoscopic ultrasound with fine needle aspiration. ANESTHESIOLOGIST: Eli Gay CRNA INSTRUMENT: Olympus adult flexible EUS scope, radial and linear. INDICATION: Pancreatic mass. REASON FOR PROCEDURE: The procedure, risks, benefits, and possible consequences, including hemorrhage, aspiration, perforation and infection, and alternative treatments, were explained to the patient/legal guardian by Dr. Harvinder Benavides and the patient/legal guardian understood and accepted these risks. PROCEDURE: After informed consent was obtained and the patient was adequately sedated, EUS scope was advanced from mouth into the stomach. Scanning at GE junction, the patient had no obvious celiac axis adenopathy. Pancreatic parenchyma in the body and tail looked mildly atrophied with some evidence of linear calcifications suggestive of maybe chronic pancreatitis. No pancreatic duct dilatation was seen. Then, the scope was advanced to the duodenal bulb and second portion of the duodenum. Ampulla was clearly. There was no obvious mass at the ampulla. There was hypoechoic lesion between the wall of the duodenum and pancreas, most likely arising from the pancreas. There was a small lymph node about 6 mm next to it. Then using this lesion roughly measured about maybe 2 to 3 centimeter in size. Then, using 22 shock needle, we did two passes, and tissue was sent to the pathology for evaluation. SUMMARY FINDINGS: 1. Mildly atrophied pancreas with calcifications in the body and tail suggestive of chronic pancreatitis. 2. A 2 to 3 cm centimeter hypoechoic lesion within the duodenal wall and pancreatic head most probably pancreatic head arising from the pancreas status post shock liver biopsy x2. RECOMMENDATIONS: Follow up biopsy results and treat accordingly. I want to thank, Dr. Yuan Redding, for this kind referral. Harvinder Benavides M.D. DR: Magno JOB#: [id number] CC:
[2017-05-21 00:03] VITALS: BP 130/60
[2017-05-21 03:40] VITALS: BP 117/69
[2017-05-21] MEDS: Piperacillin/Tazobactam 3.375 GM in NS 110 ML IVPB SCH (05:24)
[2017-05-21 06:55] LABS: BASOPHILS % (AUTO) 1.3 % (0.0-2.0); EOSINOPHILS % (AUTO) 5.9 % (0.0-3.0); LYMPHOCYTES % (AUTO) 35.4 % (20.0-45.0); MEAN CORPUSCULAR HEMOGLOBIN 26.8 PG (27.0-31.0); MEAN CORPUSCULAR HGB CONC 31.4 G/DL (32.0-36.0); MEAN CORPUSCULAR VOLUME 85 FL (80-99); MONOCYTES % (AUTO) 11.3 % (1.0-10.0); NEUTROPHILS % (AUTO) 46.2 % (45.0-75.0); PLATELET COUNT 192 K/UL (150-450); RED BLOOD COUNT 5.05 M/UL (4.70-6.10); RED CELL DISTRIBUTION WIDTH 13.5 % (11.6-14.8); WHITE BLOOD COUNT 5.1 K/UL (4.8-10.8)
[2017-05-21 07:02] LABS: ANION GAP 14 (5-15); CALCIUM 9.4 mg/dL (8.6-10.2); CARBON DIOXIDE 24 mEQ/L (20-30); CHLORIDE 102 mEQ/L (98-107); CREATININE 0.9 mg/dL (0.7-1.2); GLOMERULAR FILTRATION RATE > 60 mL/min (>60); HEMOLYSIS 10; POTASSIUM 3.8 mEQ/L (3.4-4.9); SODIUM 140 mEQ/L (135-145)
[2017-05-21 08:00] VITALS: BP 134/78
[2017-05-21] MEDS: Lisinopril 20mg tab ORAL SCH (08:35)
[2017-05-21] MEDS: Heparin 5000 units/ml inj SUBQ SCH (08:36)
--- NOTE | 2017-05-21 11:07 | GI Progress Note ---
Assessment/Plan Problems: (1) Distended abdomen ICD Codes: R14.0 - Distended abdomen SNOMED: 08487766 (2) Acute abdominal pain ICD Codes: R10.0 - Acute abdomen SNOMED: 665869983 (3) Mass of duodenum ICD Codes: K31.89 - Other diseases of stomach and duodenum SNOMED: 203356033 (4) Pancreatic mass ICD Codes: K86.9 - Disease of pancreas, unspecified SNOMED: 693112988 (5) Acute pancreatitis Status: stable Status Narrative Discussed with Dr. Benavides. Assessment/Plan SUMMARY FINDINGS: 1. Mildly atrophied pancreas with calcifications in the body and tail suggestive of chronic pancreatitis. 2. A 2 to 3 cm centimeter hypoechoic lesion within the duodenal wall and pancreatic head most probably pancreatic head arising from the pancreas status post shock liver biopsy x2. RECOMMENDATIONS: ok to dc per GI standpoint adv diet follow up biopsy results and treat accordingly. Subjective Gastrointestinal/Abdominal: Reports: no symptoms Subjective limited Objective Last 24 Hour Vital Signs Date Time Temp Pulse Resp B/P Pulse Ox O2 Delivery O2 Flow Rate FiO2 05/21/17 08:35 134/78 05/21/17 08:00 97.0 100 18 134/78 99 Room Air 05/21/17 03:40 97.7 100 19 117/69 93 Room Air 05/21/17 00:03 97.9 80 19 130/60 98 Room Air 05/20/17 20:00 97.7 74 20 156/94 99 Room Air 05/20/17 13:45 97.8 60 20 145/87 99 Room Air 05/20/17 13:40 60 20 141/85 100 Nasal Cannula 2.0 05/20/17 13:30 68 14 100 05/20/17 13:28 67 14 100 05/20/17 13:25 64 20 138/85 100 Nasal Cannula 2.0 05/20/17 13:20 70 20 135/89 100 Nasal Cannula 2.0 05/20/17 13:15 97.8 82 20 131/93 100 Nasal Cannula 2.0 05/20/17 12:00 98.0 77 20 162/113 Room Air Intake and Output 05/20/17 05/21/17 19:00 07:00 Intake Total 475 ml 837.0 ml Output Total 350 ml Balance 475 ml 487.0 ml Intake Oral 240 ml IV Total 475 ml 597.0 ml Output Urine Total 350 ml # Voids 4 1 # Bowel Movements 2 Laboratory Tests Test 05/21/17 05:20 White Blood Count 5.1 K/UL (4.8-10.8) Red Blood Count 5.05 M/UL (4.70-6.10) Hemoglobin 13.5 G/DL (14.2-18.0) L Hematocrit 43.0 % (42.0-52.0) Mean Corpuscular Volume 85 FL (80-99) Mean Corpuscular Hemoglobin 26.8 PG (27.0-31.0) L Mean Corpuscular Hemoglobin Concent 31.4 G/DL (32.0-36.0) L Red Cell Distribution Width 13.5 % (11.6-14.8) Platelet Count 192 K/UL (150-450) Mean Platelet Volume 7.0 FL (6.5-10.1) Neutrophils (%) (Auto) 46.2 % (45.0-75.0) Lymphocytes (%) (Auto) 35.4 % (20.0-45.0) Monocytes (%) (Auto) 11.3 % (1.0-10.0) H Eosinophils (%) (Auto) 5.9 % (0.0-3.0) H Basophils (%) (Auto) 1.3 % (0.0-2.0) Sodium Level 140 mEQ/L (135-145) Potassium Level 3.8 mEQ/L (3.4-4.9) Chloride Level 102 mEQ/L (98-107) Carbon Dioxide Level 24 mEQ/L (20-30) Anion Gap 14 (5-15) Blood Urea Nitrogen 7 mg/dL (7-23) Creatinine 0.9 mg/dL (0.7-1.2) Estimat Glomerular Filtration Rate > 60 mL/min (>60) Glucose Level 104 mg/dL (74-106) Calcium Level 9.4 mg/dL (8.6-10.2) Height (Feet): 5 Height (Inches): 5.00 Weight (Pounds): 160 General Appearance: no apparent distress, alert Cardiovascular: normal rate Respiratory/Chest: normal breath sounds Abdominal Exam: normal bowel sounds, non tender, soft Extremities: normal range of motion, non-tender OrellanaYuki carrillo N.P. May 21, 2017 11:07
[2017-05-21] MEDS: D5 1/2NS w/KCl 20mEq 1,000 ML IV SCH (11:56)
[2017-05-21 12:00] VITALS: BP 144/90
--- NOTE | 2017-05-21 12:15 | Infectious Diseases Prog Note ---
Assessment/Plan Assessment/Plan A; Chronic pancreatitis Schizoaffective disorder P; Discontinue Zosyn Observe off antibiotics Subjective ROS Limited/Unobtainable: No Constitutional: Reports: no symptoms HEENT: Reports: no symptoms Respiratory: Reports: no symptoms Gastrointestinal/Abdominal: Reports: other - upper abdominal pain Genitourinary: Reports: no symptoms Allergies: Coded Allergies: NO KNOWN ALLERGIES (Unverified Allergy, Unknown, 09/13/15) Objective Vital Signs Last 24 Hour Vital Signs Date Time Temp Pulse Resp B/P Pulse Ox O2 Delivery O2 Flow Rate FiO2 05/21/17 08:35 134/78 05/21/17 08:00 97.0 100 18 134/78 99 Room Air 05/21/17 03:40 97.7 100 19 117/69 93 Room Air 05/21/17 00:03 97.9 80 19 130/60 98 Room Air 05/20/17 20:00 97.7 74 20 156/94 99 Room Air 05/20/17 13:45 97.8 60 20 145/87 99 Room Air 05/20/17 13:40 60 20 141/85 100 Nasal Cannula 2.0 05/20/17 13:30 68 14 100 05/20/17 13:28 67 14 100 05/20/17 13:25 64 20 138/85 100 Nasal Cannula 2.0 05/20/17 13:20 70 20 135/89 100 Nasal Cannula 2.0 05/20/17 13:15 97.8 82 20 131/93 100 Nasal Cannula 2.0 Height (Feet): 5 Height (Inches): 5.00 Weight (Pounds): 160 General Appearance: no acute distress HEENT: mucous membranes moist Respiratory/Chest: lungs clear Cardiovascular: normal rate Abdomen: soft, non tender Extremities: no edema Neurologic/Psychiatric: alert, oriented x 3, responsive Laboratory Tests Test 05/21/17 05:20 White Blood Count 5.1 K/UL (4.8-10.8) Red Blood Count 5.05 M/UL (4.70-6.10) Hemoglobin 13.5 G/DL (14.2-18.0) L Hematocrit 43.0 % (42.0-52.0) Mean Corpuscular Volume 85 FL (80-99) Mean Corpuscular Hemoglobin 26.8 PG (27.0-31.0) L Mean Corpuscular Hemoglobin Concent 31.4 G/DL (32.0-36.0) L Red Cell Distribution Width 13.5 % (11.6-14.8) Platelet Count 192 K/UL (150-450) Mean Platelet Volume 7.0 FL (6.5-10.1) Neutrophils (%) (Auto) 46.2 % (45.0-75.0) Lymphocytes (%) (Auto) 35.4 % (20.0-45.0) Monocytes (%) (Auto) 11.3 % (1.0-10.0) H Eosinophils (%) (Auto) 5.9 % (0.0-3.0) H Basophils (%) (Auto) 1.3 % (0.0-2.0) Sodium Level 140 mEQ/L (135-145) Potassium Level 3.8 mEQ/L (3.4-4.9) Chloride Level 102 mEQ/L (98-107) Carbon Dioxide Level 24 mEQ/L (20-30) Anion Gap 14 (5-15) Blood Urea Nitrogen 7 mg/dL (7-23) Creatinine 0.9 mg/dL (0.7-1.2) Estimat Glomerular Filtration Rate > 60 mL/min (>60) Glucose Level 104 mg/dL (74-106) Calcium Level 9.4 mg/dL (8.6-10.2) Current Medications Medications (Trade) Dose Ordered Sig/Ariela Route PRN Reason Start Time Stop Time Status Last Admin Dose Admin Acetaminophen (Tylenol) 650 mg Q4H PRN ORAL fever 05/17/17 17:00 06/16/17 16:59 Al Hydroxide/Mg Hydroxide (Mylanta II) 30 ml Q6H PRN ORAL dyspepsia 05/17/17 17:00 06/16/17 16:59 05/21/17 07:07 Clonidine HCl (Catapres) 0.1 mg Q6H PRN ORAL SBP > 160 05/20/17 13:30 06/19/17 13:29 Dextrose STAT PRN IV Hypoglycemia 05/17/17 17:00 06/16/17 16:59 Dextrose/ Electrolytes (D5 0.45%NS W/ KCl 20mEq) 1,000 ml @ 75 mls/hr [id number] IV 05/18/17 17:15 06/17/17 17:14 05/21/17 11:56 Diphenhydramine HCl (Benadryl) 25 mg Q6H PRN ORAL Itching/Pruritis 05/17/17 17:00 06/16/17 16:59 Haloperidol Lactate (Haldol) 5 mg Q4H PRN IM Agitation 05/20/17 15:00 06/19/17 14:59 05/20/17 14:55 Heparin Sodium (Porcine) (Heparin 5000 units/ml) 5,000 units EVERY 12 HOURS SUBQ 05/17/17 21:00 06/16/17 20:59 05/21/17 08:36 Lisinopril (Prinivil) 10 mg DAILY ORAL 05/18/17 09:00 06/17/17 08:59 05/21/17 08:35 Morphine Sulfate (Morphine Sulfate) 2 mg EVERY 4 HOURS PRN IVP severe Pain (Pain Scale 7-10) 05/17/17 17:00 05/24/17 16:59 05/19/17 21:13 Nitroglycerin (Ntg) 0.4 mg Q5M X 3 DOSES PRN SL Prn Chest Pain 05/17/17 17:00 06/16/17 16:59 Ondansetron HCl (Zofran) 4 mg Q6H PRN IVP Nausea & Vomiting 05/17/17 17:00 06/16/17 16:59 Pantoprazole (Protonix) 40 mg DAILY ORAL 05/21/17 09:00 06/20/17 08:59 05/21/17 08:35 Piperacillin Sod/ Tazobactam Sod 3.375 gm/Sodium Chloride 110 ml @ 27.5 mls/hr EVERY 8 HOURS IVPB 05/17/17 22:00 05/24/17 21:59 05/21/17 05:24 Polyethylene Glycol (Miralax) 17 gm HSPRN PRN ORAL Constipation 05/17/17 17:00 06/16/17 16:59 Quetiapine Fumarate (SEROquel) 350 mg QHS ORAL 05/20/17 21:00 06/19/17 20:59 05/20/17 21:16 Temazepam (Restoril) 15 mg HSPRN PRN ORAL Insomnia 05/17/17 17:00 05/24/17 16:59 05/20/17 00:59 OVIDIO REYNOSO May 21, 2017 12:15
[2017-05-21] MEDS ORDERED: Lidocaine 1% MPF 10mg/ml 5ml ONE ×2 (13:34→13:52)
[2017-05-21] MEDS ORDERED: Propofol 10mg/ml 20ml IV ONE ×2 (13:34→13:52)
[2017-05-21] MEDS ORDERED: Esmolol 100mg/10ml Inj ONE ×2 (13:34→13:52)
[2017-05-21] MEDS ORDERED: LR 1000ml ONE (13:52)
--- NOTE | 2017-05-21 19:09 | Internal Med Progress Note ---
Subjective Date of Service: May 21, 2017 Physician Name Osman Akins Attending Physician Yuan Redding MD Allergies: Coded Allergies: NO KNOWN ALLERGIES (Unverified Allergy, Unknown, 09/13/15) ROS Limited/Unobtainable: No Constitutional: Reports: no symptoms HEENT: Reports: no symptoms Cardiovascular: Reports: no symptoms Respiratory: Reports: no symptoms Gastrointestinal/Abdominal: Reports: abdominal pain Genitourinary: Reports: no symptoms Neurologic/Psychiatric: Reports: no symptoms Subjective 57 YO M admitted with abdominal pain; now Duodenal mass. S/P endoscopy . S/P esophageal ultrasound 05/20/17. Cover for Int Med-Dr Redding. await discharge Objective Last Vital Signs Date Time Temp Pulse Resp B/P Pulse Ox O2 Delivery O2 Flow Rate FiO2 05/21/17 12:00 97.9 83 20 144/90 100 Room Air 05/20/17 13:40 2.0 Laboratory Tests Test 05/21/17 05:20 White Blood Count 5.1 K/UL (4.8-10.8) Red Blood Count 5.05 M/UL (4.70-6.10) Hemoglobin 13.5 G/DL (14.2-18.0) L Hematocrit 43.0 % (42.0-52.0) Mean Corpuscular Volume 85 FL (80-99) Mean Corpuscular Hemoglobin 26.8 PG (27.0-31.0) L Mean Corpuscular Hemoglobin Concent 31.4 G/DL (32.0-36.0) L Red Cell Distribution Width 13.5 % (11.6-14.8) Platelet Count 192 K/UL (150-450) Mean Platelet Volume 7.0 FL (6.5-10.1) Neutrophils (%) (Auto) 46.2 % (45.0-75.0) Lymphocytes (%) (Auto) 35.4 % (20.0-45.0) Monocytes (%) (Auto) 11.3 % (1.0-10.0) H Eosinophils (%) (Auto) 5.9 % (0.0-3.0) H Basophils (%) (Auto) 1.3 % (0.0-2.0) Sodium Level 140 mEQ/L (135-145) Potassium Level 3.8 mEQ/L (3.4-4.9) Chloride Level 102 mEQ/L (98-107) Carbon Dioxide Level 24 mEQ/L (20-30) Anion Gap 14 (5-15) Blood Urea Nitrogen 7 mg/dL (7-23) Creatinine 0.9 mg/dL (0.7-1.2) Estimat Glomerular Filtration Rate > 60 mL/min (>60) Glucose Level 104 mg/dL (74-106) Calcium Level 9.4 mg/dL (8.6-10.2) Intake and Output 05/20/17 05/21/17 19:00 07:00 Intake Total 475 ml 864.5 ml Output Total 350 ml Balance 475 ml 514.5 ml Intake Oral 240 ml IV Total 475 ml 624.5 ml Output Urine Total 350 ml # Voids 4 1 # Bowel Movements 2 Objective General Appearance: WD/WN, no apparent distress, alert EENT: PERRL/EOMI, normal ENT inspection Neck: non-tender, normal alignment, supple, normal inspection Cardiovascular: normal peripheral pulses, normal rate, regular rhythm, no gallop/murmur, no JVD Respiratory/Chest: chest wall non-tender, lungs clear, normal breath sounds, no respiratory distress, no accessory muscle use Abdomen: decreased bowel sounds, distended, guarding, tender Extremities: normal range of motion, non-tender 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 Continue protonix (3) Crohn's disease Assessment & Plan: S/P resection (4) Bipolar depression Assessment & Plan: Continue seroquel (5) Abdominal pain (6) Hypertensive urgency Assessment & Plan: Continue lisinopril (7) Hypokalemia Assessment & Plan: Resolved on IV fluids. (8) Hyponatremia Assessment & Plan: resolved on IV fluids. (9) Pancreatic mass Assessment & Plan: S/P esophageal ultrasound on 05/20/17-await results Assessment/Plan Discharge home today. F/U Dr Benavides for biopsy results. OSMAN AKINS May 21, 2017 19:09
--- NOTE | 2017-05-21 19:11 | Pulmonology Progress Note ---
Assessment/Plan Problems: (1) Mass of duodenum (2) Bipolar disorder (3) Seizure disorder (4) diverticulitis (5) Elevated CEA Assessment/Plan no new complains symptomatic treatment pain control f/u by psych Subjective ROS Limited/Unobtainable: No Constitutional: Reports: no symptoms HEENT: Repors: no symptoms Respiratory: Reports: no symptoms Allergies: Coded Allergies: NO KNOWN ALLERGIES (Unverified Allergy, Unknown, 09/13/15) Objective Last 24 Hour Vital Signs Date Time Temp Pulse Resp B/P Pulse Ox O2 Delivery O2 Flow Rate FiO2 05/21/17 12:00 97.9 83 20 144/90 100 Room Air 05/21/17 08:35 134/78 05/21/17 08:00 97.0 100 18 134/78 99 Room Air 05/21/17 03:40 97.7 100 19 117/69 93 Room Air 05/21/17 00:03 97.9 80 19 130/60 98 Room Air 05/20/17 20:00 97.7 74 20 156/94 99 Room Air Intake and Output 05/20/17 05/21/17 19:00 07:00 Intake Total 475 ml 864.5 ml Output Total 350 ml Balance 475 ml 514.5 ml Intake Oral 240 ml IV Total 475 ml 624.5 ml Output Urine Total 350 ml # Voids 4 1 # Bowel Movements 2 General Appearance: WD/WN HEENT: normocephalic, atraumatic Respiratory/Chest: chest wall non-tender, lungs clear Cardiovascular: normal peripheral pulses, normal rate Abdomen: normal bowel sounds, soft, non tender Genitourinary: normal external genitalia Extremities: no cyanosis Laboratory Tests 05/21/17 05:20: White Blood Count 5.1, Red Blood Count 5.05, Hemoglobin 13.5L, Hematocrit 43.0, Mean Corpuscular Volume 85, Mean Corpuscular Hemoglobin 26.8L, Mean Corpuscular Hemoglobin Concent 31.4L, Red Cell Distribution Width 13.5, Platelet Count 192, Mean Platelet Volume 7.0, Neutrophils (%) (Auto) 46.2, Lymphocytes (%) (Auto) 35.4, Monocytes (%) (Auto) 11.3H, Eosinophils (%) (Auto) 5.9H, Basophils (%) ( Auto) 1.3, Sodium Level 140, Potassium Level 3.8, Chloride Level 102, Carbon Dioxide Level 24, Anion Gap 14, Blood Urea Nitrogen 7, Creatinine 0.9, Estimat Glomerular Filtration Rate > 60, Glucose Level 104, Calcium Level 9.4 DEBBIE WONG May 21, 2017 19:11
--- NOTE | 2017-05-21 23:45 | Progress Note ---
DATE: 05/21/2017 SUBJECTIVE: The patient is still disorganized. He was able to talk about his past psychiatric history. He still is delusional and his family member. Compliant with medications. Tolerating medications. MENTAL STATUS EXAMINATION: The patient is alert and oriented times self and place. Mood is neutral. Affect is flat. Congruent with mood. Thought process is concrete. Thought content, no suicidal or homicidal ideations. Positive for delusions. ASSESSMENT: Schizophrenia and cognitive impairment. PLAN: The patient will be continued on current treatment. Jose Elias Castañeda M.D. DR: SG JOB#: [id number] CC:
[2017-05-24] MEDS ORDERED: LISINOPRIL10 MG ORAL (10:24)
[2017-05-24] MEDS ORDERED: PROTONIX40 MG ORAL (10:24)
[2017-05-24] MEDS ORDERED: SEROQUEL100 MG ORAL (10:24)
--- NOTE | 2017-05-24 10:25 | Discharge Summary ---
Discharge Summary Hospital Course Date of Admission May 17, 2017 at 16:24 Date of Discharge May 21, 2017 at 13:53 Admitting Diagnosis PANCREATITIS HPI Milton Balderas is a 57 year old male who was admitted on May 17, 2017 at 16: 24 for Pancreatitis Hospital Course dc summary #[id number] Discharge Medications New Medications: Lisinopril* (Lisinopril*) 10 Mg Tablet 10 MG ORAL DAILY, #30 TAB Pantoprazole* (Protonix*) 40 Mg Tablet.dr 40 MG ORAL DAILY, #30 TAB Changed Medications: Quetiapine Fumarate* (Seroquel*) 100 Mg Tablet 350 MG ORAL BEDTIME, #30 TAB (Changed from: 300 MG) Discharge Condition Upon Discharge: stable Discharge Disposition Patient was discharged to Home () Discharge Diagnoses: Michael (Kulwant)Stacey NP May 24, 2017 10:25
--- NOTE | 2017-05-25 00:15 | Discharge Summary 2 SIG ---
DATE OF ADMISSION: 05/17/2017 DATE OF DISCHARGE: 05/21/2017 REASON FOR ADMISSION: 57-year-old male with history of pancreatitis and alcohol abuse presented with abdominal pain. Upon evaluation in the emergency room found that lipase was 829. There was no leukocytosis, stable hemoglobin and hematocrit. Potassium -3.3 and sodium -129. AST- 62 and ALT- 50. Abdominal x-ray revealed no acute findings. The patient with a known history of recurrent pancreatitis due to the alcohol abuse. The patient was afebrile, pulse oximetry was stable. The patient was admitted for further management. ADMITTING DIAGNOSES: 1. Acute alcoholic pancreatitis. 2. History of chronic pancreatitis. 3. Alcohol abuse. 4. Acute abdominal pain. 5. Hypertension. 6. Electrolyte imbalance (hyponatremia, hypokalemia). HOSPITAL COURSE: The patient was admitted. GI consult was requested. The patient was initially NPO. Pain management provided. The patient was started on the IV fluids. Antiemetic provided as needed. GI seen and evaluated the patient and ordered CT of the abdomen and pelvis. CT of the abdomen and pelvis done on 05/18/2017 revealed 3.8 x 3 x 4.2 mass in between the duodenum and pancreatic head, more likely arising from the duodenal wall and the pancreatic head highly suspicious for neoplasm. Adjacent prominent lymph nodes, suspicious for metastatic lymphadenopathy related to possible malignancy. The patient subsequently undergone upper endoscopy ultrasound with fine needle aspiration by GI specialist, which was done on 05/20/2017. The patient tolerated procedure well. Cancer tumor markers were ordered. CA 19-9 was within normal limits. CEA with mild elevation of 5.2, expected, slightly above allowed limit for smoker (below 5). Biopsy of the mass revealed no evidence of malignancy. No H. pylori infection. No intestinal metaplasia or dysplasia. Minimal chronic antral gastritis with no activity. The patient was started slowly on the diet and was able to tolerate it. Antiemetic provided as needed. Amylase and lipase were trended, on discharge amylase down to 86, lipase down to 67. Electrolytes were replaced as needed and were stable. The patient initially was on empiric antibiotics, which were discontinued . ID , who followed the patient closely, recommended to observe the patient off antibiotics. No fever. No leukocytosis. Pain management provided. Pain management was addressed and controlled. Bowel regimen instituted. Blood pressure was managed with MJ inhibitor and was stable. DVT and GI prophylaxis provided. Psychiatrist seen and evaluated the patient and diagnosed the patient with schizoaffective disorder, bipolar type. Dose of Seroquel was increased. The patient also was on Haldol on as needed basis. Sitter provided for safety. The patient was stable for discharge. DISCHARGE DIAGNOSES: 1. Acute alcoholic pancreatitis. 2. Chronic pancreatitis. 3. Pancreatic mass. 4. Status post upper endoscopic ultrasound with fine-needle aspiration. 5. Alcohol abuse. 6. Acute abdominal pain secondary to acute pancreatitis. 7. Hypertension. 8. Electrolyte imbalance (hyponatremia, hypokalemia). 9. Schizoaffective disorder, bipolar type. 10. History of diverticulitis with hemicolectomy. DISCHARGE MEDICATIONS: See medication reconciliation list. DISCHARGE INSTRUCTIONS: The patient was discharged home. Followup with the primary medical doctor. The patient was advised on alcohol cessation, referred to Alcoholic Anonymous., The patient was reluctant and unwilling to go to recovery program. Yuan Redding M.D. Stacey [facility] Healthcare[facility] NAlo DR: [place] JOB#: [id number] CC: SAMI
== END 2017-05-21 13:53 | disposition home or self-care (01) | DRG 439 ==
LOC: EMR 14:41 → 4W 16:24 → EDBEDREQ 17:14 → 4W 19:44
PROC: 0DB78ZX Excision of Stomach, Pylorus, Via Natural or Artificial Opening Endoscopic, Diagnostic (ICD-10-PCS; 2017-05-19)
PROC: 0F9G4ZX Drainage of Pancreas, Percutaneous Endoscopic Approach, Diagnostic (ICD-10-PCS; principal; 2017-05-20 12:41)
DX: K85.20 Alcohol induced acute pancreatitis without necrosis or infection (principal); E87.1 Hypo-osmolality and hyponatremia; K50.90 Crohn's disease, unspecified, without complications; G40.909 Epilepsy, unspecified, not intractable, without status epilepticus; E87.6 Hypokalemia; Z90.49 Acquired absence of other specified parts of digestive tract; F17.200 Nicotine dependence, unspecified, uncomplicated; K31.9 Disease of stomach and duodenum, unspecified; F25.0 Schizoaffective disorder, bipolar type; K57.90 Diverticulosis of intestine, part unspecified, without perforation or abscess without bleeding; Z86.718 Personal history of other venous thrombosis and embolism; E86.0 Dehydration; K29.70 Gastritis, unspecified, without bleeding; I16.0 Hypertensive urgency; R97.0 Elevated carcinoembryonic antigen [CEA]; K86.1 Other chronic pancreatitis; K86.9 Disease of pancreas, unspecified
CPT/HCPCS: 36415; 71010; 74020; 74177; 80048; 80053; 80061; 80300; 81003; 82150; 82378; 83690; 84484; 85025; 85610; 85730; 86301; 86703; 86705; 86709; 86803; 86850; 86900; 86901; 87340; 93005; 94003; 94150; J2405; J8499

== ENCOUNTER 2017-06-03 12:52 | Outpatient (CLI) | payer MEDICARE, OTHER ==
[~2017-06-03 12:52] MED LIST changes: +CARVEDILOL3.125 MG ORAL; +PROTONIX40 MG ORAL
[2017-06-03] MEDS ORDERED: SEROQUEL100 MG ORAL (13:09)
[2017-06-03 13:11] VITALS: BP 154/100
[2017-06-03] MEDS ORDERED: [UNRECOGNIZED DRUG - REMARK] PO (13:12)
--- NOTE | 2017-06-03 13:42 | GI Progress Note ---
Assessment/Plan Problems: (1) Elevated CEA ICD Codes: R97.0 - Elevated CEA SNOMED: 001711015 (2) Acute pancreatitis (3) Pancreatic mass ICD Codes: K86.9 - Disease of pancreas, unspecified SNOMED: 615444306 Status: stable Status Narrative Seen with Dr. Benavides. Assessment/Plan s/p EUS w/ FNA SUMMARY FINDINGS reviewed with patient: 1. Mildly atrophied pancreas with calcifications in the body and tail suggestive of chronic pancreatitis. 2. A 2 to 3 cm centimeter hypoechoic lesion within the duodenal wall and pancreatic head most probably pancreatic head arising from the pancreas status post shock liver biopsy x2. RECOMMENDATIONS: Follow up biopsy results and treat accordingly. - H. Pylori negative - Pancreatic mass bx >> Benign fibrovascular tissue >> undiagnosed requires repeat FNA pt scheduled for EUS 06/07/17. - NPO @ NH day prior to procedure explained to patient. Subjective Gastrointestinal/Abdominal: Reports: no symptoms Objective Last 24 Hour Vital Signs Date Time Temp Pulse Resp B/P (MAP) Pulse Ox O2 Delivery O2 Flow Rate FiO2 06/03/17 13:11 98.1 67 16 154/100 General Appearance: no apparent distress, alert, thin Cardiovascular: normal rate Respiratory/Chest: normal breath sounds, no respiratory distress Abdominal Exam: normal bowel sounds, non tender, soft Extremities: normal range of motion Yuki Orellana N.P. Jun 03, 2017 13:41
== END 2017-06-03 13:45 | disposition home or self-care (01) ==
LOC: PAN 12:52
DX: R97.0 Elevated carcinoembryonic antigen [CEA] (principal); K85.90 Acute pancreatitis without necrosis or infection, unspecified; K86.9 Disease of pancreas, unspecified
CPT/HCPCS: 99211

== ENCOUNTER 2017-06-07 07:51 | Day surgery (SDC) | payer MEDICARE, OTHER ==
[~2017-06-07] VITALS: Ht 180.3 cm; Wt 73.5 kg
[2017-06-07] VITALS (8 sets, daily range): BP systolic 146–179; BP diastolic 66–107
--- NOTE | 2017-06-07 06:47 | Anethesia Preoperative Eval ---
Anesthesia Pre-op PMH/ROS General Date of Evaluation: Jun 07, 2017 Time of Evaluation: 06:40 Anesthesiologist: jorje ASA Score: ASA 3 Mallampati Score Class I : Soft palate, uvula, fauces, pillars visible Class II: Soft palate, uvula, fauces visible Class III: Soft palate, base of uvula visible Class IV: Only hard plate visible Mallampati Classification: Class II Surgeon: abbie Diagnosis: pancreatic mass Surgical Procedure: eus with fna Anesthesia History: none Social History: current smoker Allergies: Coded Allergies: NO KNOWN ALLERGIES (Unverified Allergy, Unknown, 09/13/15) Medications: see eMAR Past Medical History Cardiovascular: Reports: HTN, [place] Gastrointestinal/Genitourinary: Reports: GERD, other - diverticulosis, gastritis Neurologic/Psychiatric: Reports: CVA, depression/anxiety, other - suiciide attempt, violent behavior, decreased visual and auditory acuity, seizures Hematology/Immune: Reports: anemia, DVT, bleeding disorder, other - on anticoagulation therapy, pulmonary embolism PSxH Narrative: umbilical hernia, colon resection, testicular sx, repair right foot fx, Anesthesia Pre-op Phys. Exam Physician Exam Last Vital Signs Date Time Temp Pulse Resp B/P (MAP) Pulse Ox O2 Delivery O2 Flow Rate FiO2 06/07/17 09:07 97.7 55 20 158/66 99 Room Air Constitutional: NAD Neurologic: CN 2-12 intact Cardiovascular: RRR Respiratory: CTA Gastrointestinal: S/NT/ND Airway Exam Mallampati Score: Class II MO: full Neck: supple TMD: 2fb ROM: full Teeth: intact Anesthesia Pre-op A/P Labs Labs Test 06/07/17 09:30 White Blood Count 6.9 K/UL (4.8-10.8) Red Blood Count 5.42 M/UL (4.70-6.10) Hemoglobin 13.7 G/DL (14.2-18.0) Hematocrit 45.3 % (42.0-52.0) Mean Corpuscular Volume 84 FL (80-99) Mean Corpuscular Hemoglobin 25.4 PG (27.0-31.0) Mean Corpuscular Hemoglobin Concent 30.3 G/DL (32.0-36.0) Red Cell Distribution Width 12.9 % (11.6-14.8) Platelet Count 424 K/UL (150-450) Mean Platelet Volume 5.8 FL (6.5-10.1) Neutrophils (%) (Auto) 39.6 % (45.0-75.0) Lymphocytes (%) (Auto) 36.5 % (20.0-45.0) Monocytes (%) (Auto) 8.9 % (1.0-10.0) Eosinophils (%) (Auto) 13.7 % (0.0-3.0) Basophils (%) (Auto) 1.3 % (0.0-2.0) Studies Pre-op Studies: EKG - sinus bradycardia first degree av block anterior infarct Risk Assessment & Plan Assessment: asa3 Plan: mac Status Change Before Surgery: No Pre-Antibiotics Drug: SOPHIA Hernandez Jun 07, 2017 06:47
[~2017-06-07 07:51] MED LIST changes: +[UNRECOGNIZED DRUG - REMARK] PO
[2017-06-07 09:37] LABS: BASOPHILS % (AUTO) 1.3 % (0.0-2.0); EOSINOPHILS % (AUTO) 13.7 % (0.0-3.0); LYMPHOCYTES % (AUTO) 36.5 % (20.0-45.0); MEAN CORPUSCULAR HEMOGLOBIN 25.4 PG (27.0-31.0); MEAN CORPUSCULAR HGB CONC 30.3 G/DL (32.0-36.0); MEAN CORPUSCULAR VOLUME 84 FL (80-99); MEAN PLATELET VOLUME 5.8 FL (6.5-10.1); MONOCYTES % (AUTO) 8.9 % (1.0-10.0); NEUTROPHILS % (AUTO) 39.6 % (45.0-75.0); PLATELET COUNT 424 K/UL (150-450); RED BLOOD COUNT 5.42 M/UL (4.70-6.10); RED CELL DISTRIBUTION WIDTH 12.9 % (11.6-14.8); WHITE BLOOD COUNT 6.9 K/UL (4.8-10.8)
[2017-06-07] MEDS ORDERED: Heplock Flush 100 units/ml 3 ml syr ONE (09:38)
[2017-06-07 09:49] LABS: PROTHROMBIN TIME 9.7 SEC (9.30-11.50)
[2017-06-07 09:54] LABS: ALANINE AMINOTRANSFERASE 11 U/L (3-41); AMYLASE 101 U/L (10-110); ANION GAP 10 (5-15); ASPARTATE AMINO TRANSFERASE 18 U/L (5-40); CALCIUM 9.6 mg/dL (8.6-10.2); CARBON DIOXIDE 27 mEQ/L (20-30); CHLORIDE 103 mEQ/L (98-107); CREATININE 0.8 mg/dL (0.7-1.2); GLOMERULAR FILTRATION RATE > 60 mL/min (>60); HEMOLYSIS 0; LIPASE 60 U/L (< 60); POTASSIUM 4.2 mEQ/L (3.4-4.9); SODIUM 140 mEQ/L (135-145); TOTAL PROTEIN 7.8 g/dL (6.6-8.7)
--- NOTE | 2017-06-07 09:55 | Pre-Procedure Note/Attestation ---
Pre-Procedure Note/Attestation Complete Prior to Procedure Planned Procedure: not applicable Procedure Narrative: eus Indications for Procedure Pre-Operative Diagnosis: pancreatic mass Attestation I attest that I discussed the nature of the procedure; its benefits; risks and complications; and alternatives (and the risks and benefits of such alternatives ), prior to the procedure, with the patient (or the patient's legal sales representative cash registers). I attest that, if there was a reasonable possibility of needing a blood transfusion, the patient (or the patient's legal sales representative cash registers) was given the [facility] standardized written summary, pursuant to the [place] Blood Safety Act ([place] Health and Safety Code # 1645, as amended). I attest that I re-evaluated the patient just prior to the surgery and that there has been no change in the patient's H&P, except as documented below: DORIAN COLLINS Jun 07, 2017 09:55
--- NOTE | 2017-06-07 09:56 | Short Stay Surgery H&P ---
History of Present Illness History of Present Illness Chief Complaint pancreatic mass HPI Milton Balderas is a 57 year old male who was admitted on for Pancreatic Mass Patient History Allergies: Coded Allergies: NO KNOWN ALLERGIES (Unverified Allergy, Unknown, 09/13/15) PAST MEDICAL HISTORY: (1) Elevated CEA (2) HTN (hypertension) (3) History of diverticulitis of colon (4) diverticulitis Past Surgeries: Social History: Medication History Scheduled Lisinopril* (Lisinopril*), 10 MG ORAL DAILY Pantoprazole* (Protonix*), 40 MG ORAL DAILY Quetiapine Fumarate* (Seroquel*), 300 MG ORAL DAILY, (Reported) [BP med, new unknown ], PO BID, (Reported) Review of Systems Cardiovascular: Reports: no symptoms Respiratory: Reports: no symptoms Skeletal: Reports: no symptoms Gastrointestinal: Reports: no symptoms Genitourinary: Reports: no symptoms Neurologic: Reports: no symptoms Endocrine: Reports: no symptoms Hematologic: Reports: no symptoms Physical Exam Vital Signs Last Vital Signs Date Time Temp Pulse Resp B/P (MAP) Pulse Ox O2 Delivery O2 Flow Rate FiO2 06/07/17 09:07 97.7 55 20 158/66 99 Room Air Labs Laboratory Tests Test 06/07/17 09:30 White Blood Count 6.9 K/UL (4.8-10.8) Red Blood Count 5.42 M/UL (4.70-6.10) Hemoglobin 13.7 G/DL (14.2-18.0) L Hematocrit 45.3 % (42.0-52.0) Mean Corpuscular Volume 84 FL (80-99) Mean Corpuscular Hemoglobin 25.4 PG (27.0-31.0) L Mean Corpuscular Hemoglobin Concent 30.3 G/DL (32.0-36.0) L Red Cell Distribution Width 12.9 % (11.6-14.8) Platelet Count 424 K/UL (150-450) Mean Platelet Volume 5.8 FL (6.5-10.1) L Neutrophils (%) (Auto) 39.6 % (45.0-75.0) L Lymphocytes (%) (Auto) 36.5 % (20.0-45.0) Monocytes (%) (Auto) 8.9 % (1.0-10.0) Eosinophils (%) (Auto) 13.7 % (0.0-3.0) H Basophils (%) (Auto) 1.3 % (0.0-2.0) Prothrombin Time 9.7 SEC (9.30-11.50) Prothromb Time International Ratio 1.0 (0.9-1.1) Activated Partial Thromboplast Time 28 SEC (23-33) Sodium Level Pending Potassium Level Pending Chloride Level Pending Carbon Dioxide Level Pending Blood Urea Nitrogen Pending Creatinine Pending Estimat Glomerular Filtration Rate Pending Glucose Level Pending Calcium Level Pending Total Bilirubin Pending Aspartate Amino Transf (AST/SGOT) Pending Alanine Aminotransferase (ALT/SGPT) Pending Alkaline Phosphatase Pending Total Protein Pending Albumin Pending Globulin Pending Amylase Level Pending Lipase Pending Skin: normal HENT: normal Heart: normal Lungs: normal Abdomen: normal Extremities: normal Plan Plan of Care eus Final Diagnosis: Attestation Are the patient's medical conditions optimized for surgery? Attestation Response: yes DORIAN COLLINS Jun 07, 2017 09:56
--- NOTE | 2017-06-07 09:58 | Short Stay Surgery H&P ---
History of Present Illness History of Present Illness Chief Complaint see recent full consult HPI Milton Balderas is a 57 year old male who was admitted on for Pancreatic Mass Patient History Allergies: Coded Allergies: NO KNOWN ALLERGIES (Unverified Allergy, Unknown, 09/13/15) PAST MEDICAL HISTORY: Past Surgeries: Social History: Medication History Scheduled Lisinopril* (Lisinopril*), 10 MG ORAL DAILY Pantoprazole* (Protonix*), 40 MG ORAL DAILY Quetiapine Fumarate* (Seroquel*), 300 MG ORAL DAILY, (Reported) [BP med, new unknown ], PO BID, (Reported) Physical Exam Vital Signs Last Vital Signs Date Time Temp Pulse Resp B/P (MAP) Pulse Ox O2 Delivery O2 Flow Rate FiO2 06/07/17 09:07 97.7 55 20 158/66 99 Room Air Labs Laboratory Tests Test 06/07/17 09:30 White Blood Count 6.9 K/UL (4.8-10.8) Red Blood Count 5.42 M/UL (4.70-6.10) Hemoglobin 13.7 G/DL (14.2-18.0) L Hematocrit 45.3 % (42.0-52.0) Mean Corpuscular Volume 84 FL (80-99) Mean Corpuscular Hemoglobin 25.4 PG (27.0-31.0) L Mean Corpuscular Hemoglobin Concent 30.3 G/DL (32.0-36.0) L Red Cell Distribution Width 12.9 % (11.6-14.8) Platelet Count 424 K/UL (150-450) Mean Platelet Volume 5.8 FL (6.5-10.1) L Neutrophils (%) (Auto) 39.6 % (45.0-75.0) L Lymphocytes (%) (Auto) 36.5 % (20.0-45.0) Monocytes (%) (Auto) 8.9 % (1.0-10.0) Eosinophils (%) (Auto) 13.7 % (0.0-3.0) H Basophils (%) (Auto) 1.3 % (0.0-2.0) Prothrombin Time 9.7 SEC (9.30-11.50) Prothromb Time International Ratio 1.0 (0.9-1.1) Activated Partial Thromboplast Time 28 SEC (23-33) Sodium Level 140 mEQ/L (135-145) Potassium Level 4.2 mEQ/L (3.4-4.9) Chloride Level 103 mEQ/L (98-107) Carbon Dioxide Level 27 mEQ/L (20-30) Anion Gap 10 (5-15) Blood Urea Nitrogen 6 mg/dL (7-23) L Creatinine 0.8 mg/dL (0.7-1.2) Estimat Glomerular Filtration Rate > 60 mL/min (>60) Glucose Level 107 mg/dL (74-106) H Calcium Level 9.6 mg/dL (8.6-10.2) Total Bilirubin 0.3 mg/dL (0.0-1.2) Aspartate Amino Transf (AST/SGOT) 18 U/L (5-40) Alanine Aminotransferase (ALT/SGPT) 11 U/L (3-41) Alkaline Phosphatase 61 U/L (40-129) Total Protein 7.8 g/dL (6.6-8.7) Albumin 4.0 g/dL (3.5-5.2) Globulin 3.8 g/dL Albumin/Globulin Ratio 1.0 (1.0-2.7) Amylase Level 101 U/L (10-110) Lipase 60 U/L (< 60) Plan Attestation Are the patient's medical conditions optimized for surgery? DORIAN COLLINS Jun 07, 2017 09:58
[2017-06-07] MEDS ORDERED: Lidocaine 1% MPF 10mg/ml 5ml ONE (10:00)
[2017-06-07] MEDS ORDERED: Propofol 10mg/ml 20ml IV ONE (10:00)
[2017-06-07] MEDS ORDERED: Tubing IV Secondary IV ONE (10:05)
--- NOTE | 2017-06-07 10:28 | Endoscopy Procedure Note ---
Endoscopy Procedure Note Indication for Procedure: pancreatic mass Procedures Performed: other - EUS Operative Findings/Diagnosis: pancreatitis Specimen: none Pt Tolerated Procedure Well: Yes Estimated Blood Loss: none Anesthesiologist: jorje Anesthesia: MAC Implant(s) used?: No 50 yrs or older w/o bx or poly: Not Applicable 10yrs. F/U not recommended: Not Applicable DORIAN COLLINS Jun 07, 2017 10:28
[2017-06-07] MEDS ORDERED: DiphenhydrAMINE 50mg/ml Inj IVP PRN (10:30)
[2017-06-07] MEDS ORDERED: Midazolam 2mg/2ml Inj IVP PRN (10:30)
[2017-06-07] MEDS ORDERED: Hydromorphone 0.5mg/0.5ml inj IVP PRN (10:30)
[2017-06-07] MEDS ORDERED: Atropine Inj 1mg/10ml Syr IV PRN (10:30)
--- NOTE | 2017-06-07 10:40 | Immediate Post-Op Evaluation ---
Immediate Post-Op Evalulation Immediate Post-Op Evalulation Procedure: eus w/ fna Date of Evaluation: Jun 07, 2017 Time of Evaluation: 10:44 IV Fluids: 0.9ns 300ml Blood Products: none Estimated Blood Loss: negligible Blood Pressure Systolic: 140 Blood Pressure Diastolic: 105 Pulse Rate: 76 Respiratory Rate: 18 O2 Sat by Pulse Oximetry: 99 Temperature (Fahrenheit): 97.2 Pain Score (1-10): 0 Nausea: No Vomiting: No Complications none Patient Status: awake, reacts, patent Hydration Status: adequate Drug: SOPHIA Hernandez Jun 07, 2017 10:40
--- NOTE | 2017-06-07 11:10 | 48 Hour Post Anesthesia Eval ---
Post Anesthesia Evaluation Procedure: eus w/ fna Date of Evaluation: Jun 07, 2017 Time of Evaluation: 11:07 Blood Pressure Systolic: 148 0: 91 Pulse Rate: 69 Respiratory Rate: 18 Temperature (Fahrenheit): 97.2 O2 Sat by Pulse Oximetry: 99 Airway: patent Nausea: No Vomiting: No Pain Intensity: 0 Hydration Status: adequate Cardiopulmonary Status: stable Mental Status/LOC: patient returned to baseline Post-Anesthesia Complications: none Follow-up care needed: N/A SOPHIA BIANCHI Jun 07, 2017 11:10
--- NOTE | 2017-06-08 08:01 | Procedure Note ---
DATE OF PROCEDURE: 06/07/2017 SURGEON: Harvinder Benavides M.D. PROCEDURE: Endoscopic ultrasound. ANESTHESIOLOGIST: Selene Lundy M.D. INSTRUMENT: Olympus adult EUS scope. INDICATION: Pancreatitis, question of pancreatic mass. REASON FOR PROCEDURE: The procedure, risks, benefits, and possible consequences, including hemorrhage, aspiration, perforation and infection, and alternative treatments, were explained to the patient/legal guardian by Dr. Harvinder Benavides and the patient/legal guardian understood and accepted these risks. DESCRIPTION OF PROCEDURE: After informed consent was obtained and the patient was adequately sedated, EUS scope was advanced from the mouth into the second portion of the duodenum and pancreatic parenchyma was carefully examined through the gastroduodenal mucosa. The patient had no obvious celiac axis lymphadenopathy. Pancreatic parenchyma showed evidence of chronic pancreatitis with some hyperechoic foci 00:36 throughout the pancreatic parenchyma. Pancreatic duct was not dilated and the body was barely seen and there was some hyperechoic lining throughout the duct suspicious for chronic pancreatitis. The prior mass, which was seen in prior imaging studies at this time was not obviously seen, so this might be true that the patient had acute pancreatitis given that in last admission, his amylase and lipase were elevated and now they have resolved and so we do not see any obvious mass. FNA last time was negative, so possibly the patient 01:08 pancreatitis and the thing that was seen on the CT scan was basically an inflammation. There was no common bile duct dilatation. Common bile duct measured roughly about 4 mm. The patient tolerated the procedure well without any complication. SUMMARY OF FINDINGS: Evidence of chronic pancreatitis without any obvious pancreatic mass at this time with normal common bile duct and pancreatic duct and no obvious dilatation of any of these ducts. PLAN: The patient had negative CA 19-9 elevation. Amylase and lipase have resolved now and is improved. We recommend just to be on the safe side, given that CT showed 4 cm mass, we are going to do an MRI just to confirm today's EUS finding that there is no obvious mass. Harvinder Benavides M.D. DR: ASTON JOB#: [id number] CC:
== END 2017-06-07 11:40 | disposition home or self-care (01) ==
LOC: GAS 07:51
DX: K86.1 Other chronic pancreatitis (principal); K86.81 Exocrine pancreatic insufficiency; R97.0 Elevated carcinoembryonic antigen [CEA]; I10 Essential (primary) hypertension; R56.9 Unspecified convulsions; D64.9 Anemia, unspecified; K21.9 Gastro-esophageal reflux disease without esophagitis; F32.9 Major depressive disorder, single episode, unspecified; F41.9 Anxiety disorder, unspecified; R00.1 Bradycardia, unspecified; F17.200 Nicotine dependence, unspecified, uncomplicated; I25.2 Old myocardial infarction; Z86.718 Personal history of other venous thrombosis and embolism; Z86.711 Personal history of pulmonary embolism; Z79.01 Long term (current) use of anticoagulants; Z86.73 Personal history of transient ischemic attack (TIA), and cerebral infarction without residual deficits; Z88.8 Allergy status to other drugs, medicaments and biological substances; Z87.19 Personal history of other diseases of the digestive system
CPT/HCPCS: 36415; 43238; 80053; 82150; 83690; 85025; 85610; 85730; J0360; J1956; J2704; 94003; 94150

== ENCOUNTER 2017-06-16 13:47 | Outpatient (CLI) | payer MEDICARE, OTHER ==
--- NOTE | 2017-06-16 14:26 | GI Progress Note ---
Assessment/Plan Problems: (1) Acute abdominal pain (2) Alcohol abuse ICD Codes: F10.10 - Alcohol abuse, uncomplicated SNOMED: 72213376 (3) Pancreatic mass ICD Codes: K86.9 - Disease of pancreas, unspecified SNOMED: 095150459 (4) Acute pancreatitis Status: stable Status Narrative Seen with Dr. Benavides. Assessment/Plan 2nd EUS reviewed with patient SUMMARY OF FINDINGS: Evidence of chronic pancreatitis without any obvious pancreatic mass at this time with normal common bile duct and pancreatic duct and no obvious dilatation of any of these ducts. PLAN: defer MRI given no obvious mass on EUS colonoscopy scheduled for 06/21/17 - CLD & prep instructions given Subjective Subjective Abdominal pain >> LUQ cramping constipation vs diarrhea here for 2nd EUS review Objective T 98.3 BP 129/95 P 80 Yuki Orellana N.P. Jun 16, 2017 14:26
[2017-06-16 14:30] VITALS: BP 129/95
== END 2017-06-16 14:30 | disposition home or self-care (01) ==
LOC: PAN 13:47
DX: R10.9 Unspecified abdominal pain (principal); F10.10 Alcohol abuse, uncomplicated; K86.9 Disease of pancreas, unspecified; K85.90 Acute pancreatitis without necrosis or infection, unspecified
CPT/HCPCS: 99211

== ENCOUNTER 2017-06-21 07:56 | Day surgery (SDC) | payer MEDICARE, OTHER ==
[~2017-06-21] VITALS: Ht 177.8 cm; Wt 72.6 kg
[2017-06-21] VITALS (7 sets, daily range): BP systolic 142–150; BP diastolic 90–99
[2017-06-21] MEDS ORDERED: COLACE100 MG ORAL (08:57)
--- NOTE | 2017-06-21 09:16 | Pre-Procedure Note/Attestation ---
Pre-Procedure Note/Attestation Complete Prior to Procedure Planned Procedure: not applicable Procedure Narrative: colonoscopy Indications for Procedure Pre-Operative Diagnosis: screening Attestation I attest that I discussed the nature of the procedure; its benefits; risks and complications; and alternatives (and the risks and benefits of such alternatives ), prior to the procedure, with the patient (or the patient's legal membership sales representative). I attest that, if there was a reasonable possibility of needing a blood transfusion, the patient (or the patient's legal membership sales representative) was given the [facility] standardized written summary, pursuant to the [place] Blood Safety Act ([place] Health and Safety Code # 1645, as amended). I attest that I re-evaluated the patient just prior to the surgery and that there has been no change in the patient's H&P, except as documented below: DORIAN COLLINS Jun 21, 2017 09:16
--- NOTE | 2017-06-21 09:17 | Short Stay Surgery H&P ---
History of Present Illness History of Present Illness Chief Complaint see recent full consult HPI Milton Balderas is a 57 year old male who was admitted on for IBF Patient History Allergies: Coded Allergies: NO KNOWN ALLERGIES (Unverified Allergy, Unknown, 09/13/15) PAST MEDICAL HISTORY: Past Surgeries: Social History: Medication History Scheduled Docusate Sodium* (Colace*), 100 MG ORAL DAILY, (Reported) Lisinopril* (Lisinopril*), 10 MG ORAL DAILY Pantoprazole* (Protonix*), 40 MG ORAL DAILY Quetiapine Fumarate* (Seroquel*), 300 MG ORAL DAILY, (Reported) Physical Exam Vital Signs Last Vital Signs Date Time Temp Pulse Resp B/P (MAP) Pulse Ox O2 Delivery O2 Flow Rate FiO2 06/21/17 08:45 97.0 68 19 147/90 98 Room Air Plan Attestation Are the patient's medical conditions optimized for surgery? DORIAN COLLINS Jun 21, 2017 09:17
[2017-06-21] MEDS ORDERED: Lidocaine 1% MPF 10mg/ml 5ml ONE (09:30)
[2017-06-21] MEDS ORDERED: Propofol 200mg/20ml IV ONE (09:30)
[2017-06-21] MEDS ORDERED: LR 1000ml ONE (09:30)
[2017-06-21] MEDS ORDERED: Midazolam 2mg/2ml Inj ONE (09:30)
--- NOTE | 2017-06-21 09:53 | Endoscopy Procedure Note ---
Endoscopy Procedure Note Indication for Procedure: screening Procedures Performed: colonoscopy Operative Findings/Diagnosis: diverticulosis Specimen: none Pt Tolerated Procedure Well: Yes Estimated Blood Loss: none Anesthesiologist: iraida Anesthesia: MAC Implant(s) used?: No 50 yrs or older w/o bx or poly: Yes 10yrs. F/U not recommended: Yes If not recommended, why?: Above average risk 10 yrs. F/U needed: Yes 18 years or older w/prev. colo: No DORIAN COLLINS Jun 21, 2017 09:53
--- NOTE | 2017-06-21 09:56 | Anethesia Preoperative Eval ---
Anesthesia Pre-op PMH/ROS General Date of Evaluation: Jun 21, 2017 Time of Evaluation: 09:39 Anesthesiologist: Josefina ASA Score: ASA 3 Mallampati Score Class I : Soft palate, uvula, fauces, pillars visible Class II: Soft palate, uvula, fauces visible Class III: Soft palate, base of uvula visible Class IV: Only hard plate visible Mallampati Classification: Class II Surgeon: Dali Diagnosis: Abd Pain Surgical Procedure: Colonoscopy Anesthesia History: none Family History: no anesthesia problems Allergies: Coded Allergies: NO KNOWN ALLERGIES (Unverified Allergy, Unknown, 09/13/15) Medications: see eMAR Past Medical History Cardiovascular: Reports: HTN, CAD - [place], Angina Gastrointestinal/Genitourinary: Reports: GERD, other - Diverticulitis Neurologic/Psychiatric: Reports: CVA, other - Schizophrenia Anesthesia Pre-op Phys. Exam Physician Exam Last Vital Signs Date Time Temp Pulse Resp B/P (MAP) Pulse Ox O2 Delivery O2 Flow Rate FiO2 06/21/17 08:45 97.0 68 19 147/90 98 Room Air Constitutional: NAD Neurologic: CN 2-12 intact Cardiovascular: RRR Respiratory: CTA Gastrointestinal: S/NT/ND Airway Exam Mallampati Score: Class II MO: limited ROM: limited Teeth: missing, intact Anesthesia Pre-op A/P Risk Assessment & Plan Assessment: ASA 3 Plan: GA Status Change Before Surgery: Ramsey Block MD Jun 21, 2017 09:56
--- NOTE | 2017-06-21 09:57 | 48 Hour Post Anesthesia Eval ---
Post Anesthesia Evaluation Procedure: Colonoscopy Date of Evaluation: Jun 21, 2017 Time of Evaluation: 12:31 Blood Pressure Systolic: 148 0: 99 Pulse Rate: 65 Respiratory Rate: 16 Temperature (Fahrenheit): 98.2 O2 Sat by Pulse Oximetry: 100 Airway: patent Nausea: No Vomiting: No Pain Intensity: 1 Hydration Status: adequate Cardiopulmonary Status: Stable Mental Status/LOC: patient returned to baseline Follow-up Care/Observations: 0 Post-Anesthesia Complications: 0 Follow-up care needed: ready to discharge Ramsey Rocha MD Jun 21, 2017 09:57
--- NOTE | 2017-06-21 09:57 | Immediate Post-Op Evaluation ---
Immediate Post-Op Evalulation Immediate Post-Op Evalulation Procedure: Colonoscopy Date of Evaluation: Jun 21, 2017 Time of Evaluation: 10:17 IV Fluids: 200 LR Blood Products: 0 Estimated Blood Loss: 1 Urinary Output: 0 Blood Pressure Systolic: 148 Blood Pressure Diastolic: 99 Pulse Rate: 67 Respiratory Rate: 16 O2 Sat by Pulse Oximetry: 100 Temperature (Fahrenheit): 97.7 Pain Score (1-10): 1 Nausea: No Vomiting: No Complications 0 Patient Status: awake, reacts, patent, none Hydration Status: adequate Ramsey Rocha MD Jun 21, 2017 09:57
--- NOTE | 2017-06-21 22:00 | Procedure Note ---
DATE OF PROCEDURE: 06/21/2017 SURGEON: Harvinder Benavides M.D. PROCEDURE: Colonoscopy. ANESTHESIOLOGIST: Ramsey Rocha M.D. INSTRUMENT: Olympus adult flexible colonoscope. INDICATION: Screening colonoscopy. REASON FOR PROCEDURE: The procedure, risks, benefits, and possible consequences, including hemorrhage, aspiration, perforation and infection, and alternative treatments, were explained to the patient/legal guardian by Dr. Harvinder Benavides and the patient/legal guardian understood and accepted these risks. DESCRIPTION OF PROCEDURE: After informed consent was obtained, the patient was adequately sedated, first rectal exam was performed, which was normal. Then, the scope was advanced from the rectum into the cecum and then subsequently into the terminal ileum. Quality of prep was very good. The patient had diverticulosis scattered mostly on the left compared to right. No obvious polyp was seen. Retroflexion of rectum showed evidence of internal hemorrhoids. The patient tolerated the procedure very well without any complications. FINDINGS: 1. Diverticulosis. 2. Internal hemorrhoids. RECOMMENDATIONS: Repeat colonoscopy in 10 years. I want to thank, Dr. Yuan Redding, for this kind referral. Harvinder Benavides M.D. DR: Patti JOB#: [id number] CC: Yuan Redding M.D.; Fax#: [phone]
== END 2017-06-21 11:05 | disposition home or self-care (01) ==
LOC: GAS 07:56
DX: Z12.11 Encounter for screening for malignant neoplasm of colon (principal); K57.90 Diverticulosis of intestine, part unspecified, without perforation or abscess without bleeding; K64.8 Other hemorrhoids; F20.9 Schizophrenia, unspecified; K21.9 Gastro-esophageal reflux disease without esophagitis; Z86.73 Personal history of transient ischemic attack (TIA), and cerebral infarction without residual deficits
CPT/HCPCS: 45378; J2250; J2704; J7120; 94003; 94150

== ENCOUNTER 2017-06-29 09:32 | Outpatient (CLI) | payer MEDICARE, OTHER ==
[2017-06-29 10:01] VITALS: BP 146/80
--- NOTE | 2017-06-29 10:10 | GI Progress Note ---
Assessment/Plan Problems: (1) Chronic pancreatitis ICD Codes: K86.1 - Other chronic pancreatitis SNOMED: 699472522 (2) Acute abdominal pain (3) Depression ICD Codes: F32.9 - Major depressive disorder, single episode, unspecified SNOMED: 72803106 (4) Acute abdominal pain ICD Codes: R10.0 - Acute abdomen SNOMED: 321677343 (5) sigmoid colectomy Status: stable Status Narrative Seen with Dr. Benavides. Assessment/Plan s/p colonoscopy FINDINGS reviewed with patient: 1. Diverticulosis. 2. Internal hemorrhoids. RECOMMENDATIONS: Rx Creon 36K 3 tabs TID RTC x 1 month Repeat colonoscopy in 10 years. Subjective Subjective LUQ cramping pain diarrhea with hx of partial colectomy here for colonoscopy review Objective Last 24 Hour Vital Signs Date Time Temp Pulse Resp B/P (MAP) Pulse Ox O2 Delivery O2 Flow Rate FiO2 06/29/17 10:01 98.1 67 16 146/80 General Appearance: no apparent distress, alert Cardiovascular: normal rate Respiratory/Chest: normal breath sounds, no respiratory distress Abdominal Exam: normal bowel sounds, non tender, soft Extremities: normal range of motion Yuki Orellana N.P. Jun 29, 2017 10:10
== END 2017-06-29 10:15 | disposition home or self-care (01) ==
LOC: PAN 09:32
DX: K86.1 Other chronic pancreatitis (principal); R10.9 Unspecified abdominal pain; F32.9 Major depressive disorder, single episode, unspecified; R10.0 Acute abdomen; K57.90 Diverticulosis of intestine, part unspecified, without perforation or abscess without bleeding; K64.8 Other hemorrhoids
CPT/HCPCS: 99211

== ENCOUNTER 2017-07-13 14:06 | Outpatient (CLI) | payer MEDICARE, OTHER ==
--- NOTE | 2017-07-13 15:08 | Diagnostic Imaging Report ---
Indication: Neck Pain Findings: 3 views of the cervical spine were obtained. Narrowing and osteophyte formation involving the C5-6 and C6-7 discs are demonstrated. There is no fracture or malalignment. No Juanito is negative. No soft tissue swelling seen. Impression: Degenerative disease. No acute injury identified
== END 2017-07-13 16:06 | disposition home or self-care (01) ==
LOC: RAD 14:06
DX: M54.2 Cervicalgia (principal)
CPT/HCPCS: 72052

== ENCOUNTER 2017-09-27 16:00 | Emergency (ER) | payer MEDICARE, OTHER ==
[~2017-09-27] VITALS: Ht 172.7 cm; Wt 72.6 kg
[2017-09-27] VITALS (7 sets, daily range): BP systolic 101–141; BP diastolic 59–81
[2017-09-27] MEDS ORDERED: Naloxone 0.4mg/ml Inj IVP ONE (16:15)
[2017-09-27] MEDS ORDERED: Naloxone 1mg/ml 2ml IVP ONE ×2 (16:30→16:45)
--- NOTE | 2017-09-27 16:31 | Emergency Room Report ---
History of Present Illness General Chief Complaint: Altered Level of Consciousness Source: EMS Present Illness HPI 57-year-old male, history of alcohol and substance abuse, presenting with altered mental status. EMS stated that patient was found altered, found on the street, firedept gave 4 mg intranasal Narcan, say that patient woke up for a little while and then became altered again. No other history is able to be obtained as patient is altered and not able to give history Allergies: Coded Allergies: NO KNOWN ALLERGIES (Unverified Allergy, Unknown, 09/13/15) Patient History Past Medical History: see triage record Past Surgical History: none Pertinent Family History: none Reviewed Nursing Documentation: PMH: Agreed, PSxH: Agreed Nursing Documentation-PMH Hx Cardiac Problems: Yes Hx Hypertension: Yes Hx Cancer: No Hx Gastrointestinal Problems: Yes Hx Neurological Problems: Yes Hx Cerebrovascular Accident: Yes - subdural hematoma Hx Seizures: Yes - 2-3 years ago Hx Dizziness: Yes - AT TIMES Hx Neurologic Surgery: No Review of Systems All Other Systems: negative except mentioned in HPI Physical Exam Vital Signs Date Time Temp Pulse Resp B/P (MAP) Pulse Ox O2 Delivery O2 Flow Rate FiO2 09/27/17 15:58 98.1 110 12 130/80 98 Room Air Sp02 EP Interpretation: reviewed, normal General Appearance: other - Altered male, not responsive, protecting airway Head: normocephalic, atraumatic Eyes: bilateral eye normal inspection, bilateral eye PERRL, bilateral eye EOMI ENT: normal ENT inspection, normal pharynx, no angioedema Neck: other - full range passive motion no nuchal rigidity Respiratory: normal breath sounds, other - +bradypnea improved with narcan mildly, lungs clear Cardiovascular #1: normal inspection, regular rate, rhythm, no edema, normal capillary refill Cardiovascular #2: 2+ radial (R), 2+ radial (L) Gastrointestinal: normal inspection, non tender, soft, non-distended, no guarding Genitourinary: no CVA tenderness Musculoskeletal: normal inspection, back normal, normal range of motion, non- tender Neurologic: other - altered, responds to pain, breathing spont Psychiatric: other Skin: normal inspection, normal color, no rash, warm/dry, well hydrated, normal turgor Medical Decision Making Diagnostic Impression: Primary Impression: Acute alcoholic intoxication ER Course 57-year-old male, altered, brought by EMS DDX: Drug intoxication, heroin, cocaine, alcohol Versus hypovolemic/dehydration vs. cardiac arrhythmia vs. cardiac vs. metabolic (hypoglycemia, hypoxia), vs neuro (seizure, CVA, intracranial bleed) Plan: bgm, cbc, bmp, ekg, cxr consider IVF CT head ER course: Patient was given Narcan, with only minimal improvement CT scan is negative Patient has alcohol level of 458 Given IV fluids Hemodynamically stable called ED, informed her that he will likely be DC in the am when sober Signed out patient to Dr. Saucedo 57-year-old male alcohol intoxication Reassess when sober for any psych Please note that this Emergency Department Report was dictated using [employer] software, occasionally this can lead to erroneous entry secondary to interpretation by the dictation equipment. EKG Diagnostic Results EP Interpretation: Yes Rate: normal Rhythm: NSR ST Segments: No acute changes ASA given to patient: No Rhythm Strip EP Interpretation: Yes Rate: 78 Rhythm: NSR, no PVCs, no ectopy Chest X-ray CXR: Ordered: Yes 1 view Indication: ams EP interpretation: Yes Interpretation: No consolidation, no effusion, no PTX, no acute cardiopulmonary disease Impression: No acute disease Electronically signed by Alexei Jimenez MD Laboratory Tests Test 09/27/17 16:03 09/27/17 16:05 Prothrombin Time 9.5 SEC (9.30-11.50) Prothrombin Time INR 0.9 (0.9-1.1) PTT 29 SEC (23-33) Total Creatine Kinase 260 U/L (26-308) Troponin I 0.000 ng/mL (0.000-0.056) Pro-B-Type Natriuretic Peptide 39 pg/mL (0-125) White Blood Count 7.7 K/UL (4.8-10.8) Red Blood Count 5.42 M/UL (4.70-6.10) Hemoglobin 13.0 G/DL (14.2-18.0) L Hematocrit 44.2 % (42.0-52.0) Mean Corpuscular Volume 82 FL (80-99) Mean Corpuscular Hemoglobin 23.9 PG (27.0-31.0) L Mean Corpuscular Hemoglobin Concent 29.4 G/DL (32.0-36.0) L Red Cell Distribution Width 16.2 % (11.6-14.8) H Platelet Count 243 K/UL (150-450) Mean Platelet Volume 5.5 FL (6.5-10.1) L Neutrophils (%) (Auto) 39.7 % (45.0-75.0) L Lymphocytes (%) (Auto) 45.4 % (20.0-45.0) H Monocytes (%) (Auto) 9.8 % (1.0-10.0) Eosinophils (%) (Auto) 3.4 % (0.0-3.0) H Basophils (%) (Auto) 1.8 % (0.0-2.0) Urine Color Pale yellow Urine Appearance Clear Urine pH 6 (4.5-8.0) Urine Specific [place] 1.005 (1.005-1.035) Urine Protein Negative (NEGATIVE) Urine Glucose (UA) Negative (NEGATIVE) Urine Ketones Negative (NEGATIVE) Urine Occult Blood Negative (NEGATIVE) Urine Nitrite Negative (NEGATIVE) Urine Bilirubin Negative (NEGATIVE) Urine Urobilinogen Normal MG/DL (0.0-1.0) Urine Leukocyte Esterase 1+ (NEGATIVE) H Urine RBC 0-2 /HPF (0 - 0) H Urine WBC 2-4 /HPF (0 - 0) Urine Squamous Epithelial Cells None /LPF (NONE/OCC) Urine Bacteria Few /HPF (NONE) Sodium Level 139 MMOL/L (136-145) Potassium Level 3.4 MMOL/L (3.5-5.1) L Chloride Level 104 MMOL/L (98-107) Carbon Dioxide Level 27 MMOL/L (21-32) Anion Gap 8 mmol/L (5-15) Blood Urea Nitrogen 14 mg/dL (7-18) Creatinine 0.9 MG/DL (0.55-1.30) Estimate Glomerular Filtration Rate > 60 mL/min (>60) Glucose Level 100 MG/DL (74-106) Calcium Level 8.4 MG/DL (8.5-10.1) L Total Bilirubin 0.1 MG/DL (0.2-1.0) L Aspartate Amino Transferase (AST) 32 U/L (15-37) Alanine Aminotransferase (ALT) 34 U/L (12-78) Alkaline Phosphatase 58 U/L (46-116) Total Protein 7.3 G/DL (6.4-8.2) Albumin 3.6 G/DL (3.4-5.0) Globulin 3.7 g/dL Albumin/Globulin Ratio 1.0 (1.0-2.7) Salicylates Level 4.8 ug/mL (2.8-20) Urine Opiates Screen Negative (NEGATIVE) Acetaminophen Level < 2 MCG/ML (10-30) L Urine Barbiturates Screen Negative (NEGATIVE) Phencyclidine (PCP) Screen Negative (NEGATIVE) Urine Amphetamines Screen Negative (NEGATIVE) Urine Benzodiazepines Screen Negative (NEGATIVE) Urine Cocaine Screen Negative (NEGATIVE) Urine Marijuana (THC) Screen Negative (NEGATIVE) Serum Alcohol 453 mg/dL CT/MRI/US Diagnostic Results CT/MRI/US Diagnostic Results : Imaging Test Ordered: CT Head Impression CT HEAD: Comparison 01/20/2015 No acute intracranial hemorrhage or cortical ischemia. No skull fracture. Chronic ischemic changes. Cannot exclude [id number] ischemia. Last Vital Signs Date Time Temp Pulse Resp B/P (MAP) Pulse Ox O2 Delivery O2 Flow Rate FiO2 09/27/17 15:58 98.1 110 12 130/80 98 Room Air Alexei Jimenez M.D. Sep 27, 2017 16:31
[2017-09-27 16:35] LABS: BASOPHILS % (AUTO) 1.8 % (0.0-2.0); EOSINOPHILS % (AUTO) 3.4 % (0.0-3.0); LYMPHOCYTES % (AUTO) 45.4 % (20.0-45.0); MEAN CORPUSCULAR HEMOGLOBIN 23.9 PG (27.0-31.0); MEAN CORPUSCULAR HGB CONC 29.4 G/DL (32.0-36.0); MEAN CORPUSCULAR VOLUME 82 FL (80-99); MEAN PLATELET VOLUME 5.5 FL (6.5-10.1); MONOCYTES % (AUTO) 9.8 % (1.0-10.0); NEUTROPHILS % (AUTO) 39.7 % (45.0-75.0); PLATELET COUNT 243 K/UL (150-450); RED BLOOD COUNT 5.42 M/UL (4.70-6.10); RED CELL DISTRIBUTION WIDTH 16.2 % (11.6-14.8); WHITE BLOOD COUNT 7.7 K/UL (4.8-10.8)
[2017-09-27 16:36] LABS: APPEARANCE,URINE CLEAR; KETONES,URINE NEGATIVE (NEGATIVE); LEUKOCYTE ESTERASE ,URINE 1+ (NEGATIVE); NITRITE,URINE NEGATIVE (NEGATIVE); PH,URINE 6 (4.5-8.0); PROTEIN,URINE NEGATIVE (NEGATIVE); UROBILINOGEN,URINE NORMAL MG/DL (0.0-1.0)
[2017-09-27 16:48] LABS: BACTERIA,URINE FEW /HPF; RBC,URINE 0-2 /HPF (0 - 0)
[2017-09-27 16:54] LABS: INR 0.9 (0.9-1.1); PROTHROMBIN TIME 9.5 SEC (9.30-11.50)
[2017-09-27 17:25] LABS: ANION GAP 8 mmol/L (5-15); CALCIUM 8.4 MG/DL (8.5-10.1); CARBON DIOXIDE 27 MMOL/L (21-32); CHLORIDE 104 MMOL/L (98-107); CREATININE 0.9 MG/DL (0.55-1.30); GLOMERULAR FILTRATION RATE > 60 mL/min (>60); POTASSIUM 3.4 MMOL/L (3.5-5.1); SODIUM 139 MMOL/L (136-145)
[2017-09-27 17:33] LABS: ACETAMINOPHEN < 2 MCG/ML (10-30); ALANINE AMINOTRANSFERASE 34 U/L (12-78); ALCOHOL 453 mg/dL; ASPARTATE AMINO TRANSFERASE 32 U/L (15-37); TOTAL PROTEIN 7.3 G/DL (6.4-8.2)
[2017-09-27] MEDS ORDERED: Thiamine HCl 100 MG in D5W 55 ML IVPB ONE (17:45)
[2017-09-27] MEDS ORDERED: Thiamine HCl 100mg/ml 2 ml Inj ONE (17:58)
[2017-09-27] MEDS ORDERED: UNOBMED (18:48)
[2017-09-28 00:03] VITALS: BP 114/67
[2017-09-28 00:10] VITALS: BP 114/67
--- NOTE | 2017-09-28 17:24 | Diagnostic Imaging Report ---
Indication: Shortness of breath Technique: One view of the chest Comparison: 05/17/2017 Findings: Lungs and pleural spaces are clear. Heart size is normal inspiration is suboptimal Impression: No acute process
--- NOTE | 2017-09-29 09:16 | Diagnostic Imaging Report ---
Indications: Altered mental status Technique: Spiral acquisitions obtained through the brain. Angled axial and coronal 5 x 5 mm slices were reconstructed. Total dose length product 1390.16 mGycm. CTDI vol(s) 70.38 mGy. Dose reduction achieved using automated exposure control Comparison: 01/20/2015 Findings: There is prominence of the ventricles and extra-axial CSF spaces, particularly the posterior fossa, advanced for age. No acute hemorrhage or edema. No mass effect nor midline shift. Normal jasso-white differentiation. Old bilateral basal ganglia lacunar infarcts are demonstrated, more conspicuous than on the prior exam. Intact calvarium. Visualized orbits and sinuses are unremarkable. Mastoids are clear. No significant interim change Impression: Chronic and age-related changes as described Negative for acute intracranial bleed or mass effect This agrees with the preliminary interpretation provided overnight by [facility] telerad[facility] service. The CT scanner at [facility] is accredited by the [place] [employer] and the scans are performed using protocols designed to limit radiation exposure to as low as reasonably achievable to attain images of sufficient resolution adequate for diagnostic evaluation.
== END 2017-09-28 00:10 | disposition home or self-care (01) ==
LOC: EDBD 16:00 → EMR 16:36
DX: F10.129 Alcohol abuse with intoxication, unspecified (principal); Y90.8 Blood alcohol level of 240 mg/100 ml or more; R41.82 Altered mental status, unspecified; I10 Essential (primary) hypertension
CPT/HCPCS: 36415; 70450; 71010; 80053; 80307; 81003; 82550; 82962; 83880; 84484; 85025; 85610; 85730; 96361; 96365; 96375; 96376; 99284; G0480; J2310; 80329; 96374

== ENCOUNTER 2017-12-07 08:52 | Outpatient (CLI) | payer MEDICARE, OTHER ==
--- NOTE | 2017-12-07 09:37 | GI Progress Note ---
Assessment/Plan Problems: (1) Smoker ICD Codes: F17.200 - Smoker SNOMED: 42652781 (2) Acute abdominal pain (3) Alcohol abuse ICD Codes: F10.10 - Alcohol abuse, uncomplicated SNOMED: 48835177 (4) Chronic pancreatitis ICD Codes: K86.1 - Other chronic pancreatitis SNOMED: 022489247 Status: stable Status Narrative Seen with Dr. Benavides. Assessment/Plan obtain recent labs patient advise to stop drinking and smoking, most likely cause of recent pancreatitis RTC x 1 month, will consider CT if necessary Subjective Subjective abdominal pain >> RUQ, LUQ >> "painful knot that pops out", has had for months on and off Hx of chronic pancreatitis with mass >> bx benign fibrovascular tissue Denies weight loss no N/V no diarrhea / constipation tobacco smoker ETOH 2/beers a day, ernestina 2 shots a day Objective T 98.0 BP 149/99 P 82 100 RA General Appearance: WD/WN, no apparent distress, alert Cardiovascular: normal rate Respiratory/Chest: normal breath sounds, no respiratory distress Abdominal Exam: normal bowel sounds, non tender, soft Extremities: normal range of motion, non-tender Yuki Orellana N.P. Dec 07, 2017 09:37
[2017-12-07] MEDS ORDERED: NORVASC5 MG ORAL (09:39)
[2017-12-07] MEDS ORDERED: COREG3.125 MG ORAL (09:39)
[2017-12-07] MEDS ORDERED: PEPCID20 MG ORAL (09:39)
[2017-12-07] MEDS ORDERED: CREON DR 36,001 EACH PO (09:39)
== END 2017-12-07 09:25 | disposition home or self-care (01) ==
LOC: PAN 08:52
DX: R10.9 Unspecified abdominal pain (principal); F10.10 Alcohol abuse, uncomplicated; K86.1 Other chronic pancreatitis; F17.200 Nicotine dependence, unspecified, uncomplicated
CPT/HCPCS: 99212

== ENCOUNTER 2018-05-23 08:45 | Outpatient (CLI) | payer MEDICARE, OTHER ==
[~2018-05-23 08:45] MED LIST changes: +COREG3.125 MG ORAL; +CREON DR 36,001 EACH PO; +NORVASC5 MG ORAL
[2018-05-23 10:06] LABS: BASOPHILS % (AUTO) 1.8 % (0.0-2.0); EOSINOPHILS % (AUTO) 4.3 % (0.0-3.0); HEMATOCRIT 44.8 % (42.0-52.0); LYMPHOCYTES % (AUTO) 37.8 % (20.0-45.0); MEAN CORPUSCULAR VOLUME 81 FL (80-99); MONOCYTES % (AUTO) 5.9 % (1.0-10.0); NEUTROPHILS % (AUTO) 50.2 % (45.0-75.0); PLATELET COUNT 232 K/UL (150-450); RED CELL DISTRIBUTION WIDTH 12.5 % (11.6-14.8); WHITE BLOOD COUNT 6.1 K/UL (4.8-10.8)
[2018-05-23 10:31] LABS: ALANINE AMINOTRANSFERASE 29 U/L (12-78); ALBUMIN 3.8 G/DL (3.4-5.0); ALBUMIN/GLOBULIN RATIO 0.8 (1.0-2.7); ALKALINE PHOSPHATASE 62 U/L (46-116); ANION GAP 10 mmol/L (5-15); ASPARTATE AMINO TRANSFERASE 35 U/L (15-37); BILIRUBIN,TOTAL 0.5 MG/DL (0.2-1.0); BLOOD UREA NITROGEN 6 mg/dL (7-18); CALCIUM 9.1 MG/DL (8.5-10.1); CARBON DIOXIDE 28 MMOL/L (21-32); CHLORIDE 99 MMOL/L (98-107); CHOLESTEROL 237 MG/DL (< 200); CREATININE 0.9 MG/DL (0.55-1.30); HDL CHOLESTEROL 78 MG/DL (40-60); PHOSPHORUS 3.2 MG/DL (2.5-4.9); POTASSIUM 3.4 MMOL/L (3.5-5.1); SODIUM 137 MMOL/L (136-145); TRIGLYCERIDES 94 MG/DL (30-150)
--- NOTE | 2018-05-25 23:38 | Diagnostic Imaging Report ---
APPROVED REPORT CPT Code: 44327 Present Symptoms Comments: Right leg swelling RIGHT LEG: Venous imaging reveals a patent deep venous system. There is no evidence of thrombus within the femoral, popliteal or tibial segments. The greater saphenous vein is also within normal limits. Doppler indicates normal spontaneous flow within these segments.
== END 2018-05-23 10:45 | disposition home or self-care (01) ==
LOC: VAS 08:45
DX: M25.571 Pain in right ankle and joints of right foot (principal); R94.5 Abnormal results of liver function studies; E55.9 Vitamin D deficiency, unspecified; R22.41 Localized swelling, mass and lump, right lower limb
CPT/HCPCS: 36415; 80053; 80061; 82306; 82607; 82746; 83036; 83735; 84100; 84443; 85025; 93971

== ENCOUNTER → 2018-12-09 | Outpatient (CLI) | payer MEDICARE, OTHER ==
[~2018-12-09] MED LIST changes: +CYCLOBENZAPRINE5 MG ORAL; +QUETIAPINE FUM300 MG ORAL; +VITAMIN D250000 UNI1 ORAL
[2018-12-09 11:58] LABS: BASOPHILS % (AUTO) 1.8 % (0.0-2.0); EOSINOPHILS % (AUTO) 10.6 % (0.0-3.0); HEMATOCRIT 45.9 % (42.0-52.0); HEMOGLOBIN 14.5 G/DL (14.2-18.0); LYMPHOCYTES % (AUTO) 35.8 % (20.0-45.0); MEAN CORPUSCULAR VOLUME 83 FL (80-99); MONOCYTES % (AUTO) 10.8 % (1.0-10.0); PLATELET COUNT 394 K/UL (150-450); RED BLOOD COUNT 5.53 M/UL (4.70-6.10); RED CELL DISTRIBUTION WIDTH 13.7 % (11.6-14.8); WHITE BLOOD COUNT 8.4 K/UL (4.8-10.8)
[2018-12-09 12:24] LABS: ALANINE AMINOTRANSFERASE 20 U/L (12-78); ALBUMIN 3.8 G/DL (3.4-5.0); ALBUMIN/GLOBULIN RATIO 0.8 (1.0-2.7); ALKALINE PHOSPHATASE 66 U/L (46-116); ANION GAP 10 mmol/L (5-15); ASPARTATE AMINO TRANSFERASE 20 U/L (15-37); BILIRUBIN,TOTAL 0.4 MG/DL (0.2-1.0); BLOOD UREA NITROGEN 10 mg/dL (7-18); CALCIUM 10.1 MG/DL (8.5-10.1); CARBON DIOXIDE 28 MMOL/L (21-32); CHLORIDE 103 MMOL/L (98-107); CHOLESTEROL 221 MG/DL (< 200); HDL CHOLESTEROL 37 MG/DL (40-60); PHOSPHORUS 3.6 MG/DL (2.5-4.9); POTASSIUM 4.9 MMOL/L (3.5-5.1); SODIUM 141 MMOL/L (136-145); TRIGLYCERIDES 163 MG/DL (30-150)
--- NOTE | 2018-12-09 14:52 | Diagnostic Imaging Report ---
Indications: Neck pain for 2 weeks Technique: Four views of the cervical spine Comparison: None Findings: There is straightening of the normal cervical lordosis, otherwise normal bony alignment. No prevertebral soft tissue swelling. No acute fractures. No dislocations. There is degenerative disc narrowing at C5-6 and C6-7. The remaining disc spaces are preserved. There is minimal neural foraminal stenosis at C4-5 and C5-6 on the left. Impression: Mild degenerative changes, as described above No acute bony trauma
== END | disposition home or self-care (01) ==
LOC: RAD 10:35
DX: M54.2 Cervicalgia (principal); I10 Essential (primary) hypertension; F10.20 Alcohol dependence, uncomplicated; F17.200 Nicotine dependence, unspecified, uncomplicated; M62.838 Other muscle spasm; K86.1 Other chronic pancreatitis
CPT/HCPCS: 36415; 72052; 80053; 80061; 82306; 82607; 82746; 84100; 84153; 84443; 85025; 85651

== ENCOUNTER 2018-12-13 09:22 | Inpatient (IN) | payer MEDICARE, OTHER ==
[~2018-12-13] VITALS: Ht 177.8 cm; Wt 77.6 kg
[~2018-12-13 09:22] MED LIST changes: -CYCLOBENZAPRINE5 MG ORAL; -QUETIAPINE FUM300 MG ORAL; -VITAMIN D250000 UNI1 ORAL
--- NOTE | 2018-12-13 09:34 | NUR ---
ED Nurse Note: Patient walked into ED from home, c/o generalized weakness. patient reports this weakness and body aches were there for 2 weeks. Patient states his primary doctor is Dr. Redding and has a follow up appointment with him on 12/26/18.
[2018-12-13 09:41] VITALS: BP 144/88
--- NOTE | 2018-12-13 09:58 | Emergency Room Report ---
History of Present Illness General Chief Complaint: Generalized Weakness Source: Patient Present Illness HPI Patient present with complaints of initially diffuse bodyaches However he also reports chest pain midsternal Patient reports short of breath intermittently Denies any pleurisy Denies any vomiting or diarrhea Patient reports that he read the side effects of the medication he is on and they do concur with some of the complaints Patient also complaining of sensation of hot and cold denies any focal weakness and eyes any blurring of his vision Allergies: Coded Allergies: NO KNOWN ALLERGIES (Unverified Allergy, Unknown, 09/13/15) Patient History Past Medical History: see triage record Pertinent Family History: none Reviewed Nursing Documentation: PMH: Agreed; PSxH: Agreed Nursing Documentation-PMH Past Medical History: No History, Except For Hx Cardiac Problems: Yes Hx Hypertension: Yes Hx Cancer: No Hx Gastrointestinal Problems: Yes Hx Neurological Problems: Yes Hx Cerebrovascular Accident: Yes - subdural hematoma Hx Seizures: Yes - 2-3 years ago Hx Dizziness: Yes - AT TIMES Hx Neurologic Surgery: No Review of Systems All Other Systems: negative except mentioned in HPI Physical Exam Vital Signs Date Time Temp Pulse Resp B/P (MAP) Pulse Ox O2 Delivery O2 Flow Rate FiO2 12/13/18 09:25 97.9 88 18 144/96 99 Room Air Sp02 EP Interpretation: reviewed, normal General Appearance: no apparent distress, other - Mildly anxious Head: normocephalic, atraumatic Eyes: bilateral eye PERRL, bilateral eye EOMI ENT: hearing grossly normal, normal pharynx, TMs + canals normal, uvula midline Neck: full range of motion, supple, no meningismus, no bony tend Respiratory: lungs clear, normal breath sounds, no rhonchi, no respiratory distress, no retraction, no accessory muscle use Cardiovascular #1: normal peripheral pulses, regular rate, rhythm, no edema, no gallop, no JVD, no murmur Gastrointestinal: normal bowel sounds, non tender, soft, no mass, no organomegaly, non-distended, no guarding, no hernia, no pulsatile mass, no rebound Genitourinary: no CVA tenderness Musculoskeletal: normal inspection Neurologic: oriented x3, responsive, rehab specialist III-XII nml as tested, motor strength/ tone normal, sensory intact Psychiatric: mood/affect normal Skin: normal color, no rash, warm/dry, palpation normal Lymphatic: normal inspection, no adenopathy Medical Decision Making Diagnostic Impression: Primary Impression: ACS (acute coronary syndrome) ER Course Patient is a fairly complex patient with multiple differential to consideration including but not limited to cardiac cardiopulmonary and vascular emergencies Patient's blood work is normal On review of outpatient blood work patient PSAs fairly elevated This is discussed with admitting physician and patient him in for further care Labs Test 12/13/18 10:00 12/13/18 18:30 12/14/18 06:00 White Blood Count 8.3 K/UL (4.8-10.8) 6.3 K/UL (4.8-10.8) Red Blood Count 5.41 M/UL (4.70-6.10) 4.99 M/UL (4.70-6.10) Hemoglobin 14.1 G/DL (14.2-18.0) 13.3 G/DL (14.2-18.0) Hematocrit 44.4 % (42.0-52.0) 41.2 % (42.0-52.0) Mean Corpuscular Volume 82 FL (80-99) 83 FL (80-99) Mean Corpuscular Hemoglobin 26.1 PG (27.0-31.0) 26.6 PG (27.0-31.0) Mean Corpuscular Hemoglobin Concent 31.8 G/DL (32.0-36.0) 32.2 G/DL (32.0-36.0) Red Cell Distribution Width 13.5 % (11.6-14.8) 13.5 % (11.6-14.8) Platelet Count 322 K/UL (150-450) 294 K/UL (150-450) Mean Platelet Volume 6.0 FL (6.5-10.1) 5.8 FL (6.5-10.1) Neutrophils (%) (Auto) 44.1 % (45.0-75.0) 36.7 % (45.0-75.0) Lymphocytes (%) (Auto) 36.1 % (20.0-45.0) 40.5 % (20.0-45.0) Monocytes (%) (Auto) 7.2 % (1.0-10.0) 7.8 % (1.0-10.0) Eosinophils (%) (Auto) 11.2 % (0.0-3.0) 13.9 % (0.0-3.0) Basophils (%) (Auto) 1.4 % (0.0-2.0) 1.1 % (0.0-2.0) Urine Color Yellow Urine Appearance Clear Urine pH 6 (4.5-8.0) Urine Specific [place] 1.010 (1.005-1.035) Urine Protein Negative (NEGATIVE) Urine Glucose (UA) Negative (NEGATIVE) Urine Ketones Negative (NEGATIVE) Urine Blood Negative (NEGATIVE) Urine Nitrite Negative (NEGATIVE) Urine Bilirubin Negative (NEGATIVE) Urine Urobilinogen 1 MG/DL (0.0-1.0) Urine Leukocyte Esterase 1+ (NEGATIVE) Urine RBC 0 /HPF (0 - 0) Urine WBC 0-2 /HPF (0 - 0) Urine Squamous Epithelial Cells None /LPF (NONE/OCC) Urine Bacteria None /HPF (NONE) Urine Mucus Few /LPF (NONE/OCC) Sodium Level 139 MMOL/L (136-145) Potassium Level 3.6 MMOL/L (3.5-5.1) Chloride Level 104 MMOL/L (98-107) Carbon Dioxide Level 27 MMOL/L (21-32) Anion Gap 8 mmol/L (5-15) Blood Urea Nitrogen 10 mg/dL (7-18) Creatinine 0.9 MG/DL (0.55-1.30) Estimat Glomerular Filtration Rate > 60 mL/min (>60) Glucose Level 99 MG/DL (74-106) Calcium Level 9.0 MG/DL (8.5-10.1) Total Bilirubin 0.3 MG/DL (0.2-1.0) Aspartate Amino Transf (AST/SGOT) 16 U/L (15-37) Alanine Aminotransferase (ALT/SGPT) 17 U/L (12-78) Alkaline Phosphatase 65 U/L (46-116) Total Creatine Kinase 190 U/L (26-308) Creatine Kinase MB 0.9 NG/ML (0.0-3.6) Creatine Kinase MB Relative Index 0.4 Troponin I 0.000 ng/mL (0.000-0.056) 0.003 ng/mL (0.000-0.056) 0.005 ng/mL (0.000-0.056) Total Protein 7.5 G/DL (6.4-8.2) Albumin 3.4 G/DL (3.4-5.0) Globulin 4.1 g/dL Albumin/Globulin Ratio 0.8 (1.0-2.7) Lipase 197 U/L (73-393) Prothrombin Time 10.2 SEC (9.30-11.50) Prothromb Time International Ratio 1.0 (0.9-1.1) Activated Partial Thromboplast Time 30 SEC (23-33) Magnesium Level 1.7 MG/DL (1.8-2.4) C-Reactive Protein, Quantitative < 0.4 mg/dL (0.00-0.90) Pro-B-Type Natriuretic Peptide 75 pg/mL (0-125) Triglycerides Level 137 MG/DL (30-150) Cholesterol Level 197 MG/DL (< 200) LDL Cholesterol 144 mg/dL (<100) HDL Cholesterol 33 MG/DL (40-60) Cholesterol/HDL Ratio 6.0 (3.3-4.4) Thyroid Stimulating Hormone (TSH) 2.149 uiU/mL (0.358-3.740) EKG Diagnostic Results Rate: normal Rhythm: NSR ST Segments: no acute changes Rhythm Strip Diag. Results EP Interpretation: yes Rate: 80 Rhythm: NSR, no PVC's, no ectopy Chest X-Ray Diagnostic Results Chest X-Ray Diagnostic Results : Chest X-Ray Ordered: Yes # of Views/Limited/Complete: 1 View Indication: Chest Pain EP Interpretation: Yes Interpretation: no consolidation, no effusion, no pneumothorax Impression: No acute disease Electronically Signed by: Janeth Vincent DO Last Vital Signs Date Time Temp Pulse Resp B/P (MAP) Pulse Ox O2 Delivery O2 Flow Rate FiO2 12/13/18 09:42 88 18 Room Air 12/13/18 09:41 97.9 144/88 100 Status: improved Disposition: ADMITTED INPATIENT Condition: Serious Referrals: Yuan Redding MD (PCP) Janeth Vincent DO Dec 13, 2018 09:58
[2018-12-13] MEDS ORDERED: Ketorolac 30mg Inj IV ONE (10:00)
[2018-12-13 10:24] LABS: BASOPHILS % (AUTO) 1.4 % (0.0-2.0); EOSINOPHILS % (AUTO) 11.2 % (0.0-3.0); HEMATOCRIT 44.4 % (42.0-52.0); HEMOGLOBIN 14.1 G/DL (14.2-18.0); LYMPHOCYTES % (AUTO) 36.1 % (20.0-45.0); MEAN CORPUSCULAR VOLUME 82 FL (80-99); MONOCYTES % (AUTO) 7.2 % (1.0-10.0); NEUTROPHILS % (AUTO) 44.1 % (45.0-75.0); PLATELET COUNT 322 K/UL (150-450); RED BLOOD COUNT 5.41 M/UL (4.70-6.10); RED CELL DISTRIBUTION WIDTH 13.5 % (11.6-14.8); WHITE BLOOD COUNT 8.3 K/UL (4.8-10.8)
[2018-12-13 10:29] LABS: APPEARANCE,URINE CLEAR; BILIRUBIN, URINE NEGATIVE (NEGATIVE); GLUCOSE, URINE (UA) NEGATIVE (NEGATIVE); KETONES,URINE NEGATIVE (NEGATIVE); LEUKOCYTE ESTERASE ,URINE 1+ (NEGATIVE); NITRITE,URINE NEGATIVE (NEGATIVE); PH,URINE 6 (4.5-8.0); PROTEIN,URINE NEGATIVE (NEGATIVE); UROBILINOGEN,URINE 1 MG/DL (0.0-1.0)
[2018-12-13 10:31] LABS: COLOR,URINE YELLOW
[2018-12-13 10:35] LABS: ANION GAP 8 mmol/L (5-15); BLOOD UREA NITROGEN 10 mg/dL (7-18); CARBON DIOXIDE 27 MMOL/L (21-32); CHLORIDE 104 MMOL/L (98-107); CREATININE 0.9 MG/DL (0.55-1.30); POTASSIUM 3.6 MMOL/L (3.5-5.1); SODIUM 139 MMOL/L (136-145)
[2018-12-13 10:48] LABS: ALANINE AMINOTRANSFERASE 17 U/L (12-78); ALBUMIN 3.4 G/DL (3.4-5.0); ALBUMIN/GLOBULIN RATIO 0.8 (1.0-2.7); ALKALINE PHOSPHATASE 65 U/L (46-116); ASPARTATE AMINO TRANSFERASE 16 U/L (15-37); BILIRUBIN,TOTAL 0.3 MG/DL (0.2-1.0); CKMB 0.9 NG/ML (0.0-3.6); CREATINE KINASE 190 U/L (26-308)
[2018-12-13] MEDS ORDERED: Tylenol #3 tab (300mg/30mg) ORAL ONE (11:15)
--- NOTE | 2018-12-13 11:21 | NUR ---
ED Nurse Note: Dr. Troy made aware of patient c/o itchiness after toradol, but no rash/hives noted. Per Dr. Troy it's ok. 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
--- NOTE | 2018-12-13 11:21 | Diagnostic Imaging Report ---
Indication: Chest pain Technique: One view of the chest Comparison: 09/27/2017 Findings: Lungs and pleural spaces are clear. Heart size is normal. No significant interim change Impression: No acute process
--- NOTE | 2018-12-13 11:51 | NUR ---
ED Nurse Note: Spoke with Michael RN, report given. Per Michael, they need to find another room because another pt in 206 is isolation.
[2018-12-13 12:38] VITALS: BP 115/59
--- NOTE | 2018-12-13 13:00 | NUR ---
NURSE NOTES: Patient was received by charge nurse while primary nurse was at break. Patient heart monitor was on and patient was on 2L NC. @1pm- Patient is AAOx4. belongings checklist done, patient has unlabored and easy breathing. patient state moderate chest pain that change spots. Patient states he is not in distress at this time. will follow up with plan of care.
[2018-12-13] MEDS ORDERED: Enalaprilat 2.5mg/2ml Inj IV PRN (13:15)
[2018-12-13] MEDS ORDERED: Miralax 17gm pkt ORAL PRN (13:15)
[2018-12-13] MEDS ORDERED: Ketorolac 30mg Inj IV PRN (13:15)
[2018-12-13] MEDS ORDERED: dilTIAZem HCl 25mg/5ml Inj IV PRN (13:15)
[2018-12-13] MEDS ORDERED: Albuterol/Ipratropium 3ml neb HHN PRN (13:15)
--- NOTE | 2018-12-13 14:23 | Cardiology Report ---
APPROVED REPORT EXAM: Two-dimensional and M-mode echocardiogram with Doppler and color Doppler. INDICATION LV function M-Mode DIMENSIONS IVSd0.8 (0.7-1.1cm)Left Atrium (MM)2.8 (1.6-4.0cm) LVDd4.3 (3.5-5.6cm)Aortic Root3.7 (2.0-3.7cm) PWd1.3 (0.7-1.1cm)Aortic Cusp Exc.1.9 (1.5-2.0cm) LVDs3.2 (2.5-4.0cm) PWs1.5 cm Normal left ventricular chamber size. distal left ventricular hypokinesis. Mid and distal inferoseptal akinesis. Left ventricular ejection fraction estimated to be 40 %. Mild left ventricular hypertrophy. Anterior Echo-free space, may be due to pericardial fat or effusion. All other cardiac chamber sizes are within normal limits. Focal aortic valve sclerosis with adequate cusp excursion. Thickened mitral valve leaflets with normal excursion. Mitral annulus and aortic root calcification. Pulmonic valve not well visualized. Normal tricuspid valve structure. IVC at normal size with physiologic collapse. A color flow and spectral Doppler study was performed and revealed: Trace mitral regurgitation. Mitral diastolic velocities suggest reduced left ventricular relaxation c/w mild LV diastolic dysfunction (Grade I). Trace tricuspid regurgitation. Tricuspid systolic velocities suggests peak right ventricular systolic pressure of 13 mmHg
[2018-12-13] MEDS ORDERED: CYCLOBENZAPRINE5 MG ORAL (15:16)
[2018-12-13] MEDS ORDERED: VITAMIN D250000 UNI1 ORAL (15:17)
[2018-12-13] MEDS ORDERED: QUETIAPINE FUM300 MG ORAL (15:17)
[2018-12-13 16:00] VITALS: BP 119/73
[2018-12-13] MEDS: Morphine Sulfate 2mg/ml Inj(IV/IM USE ONLY) IVP PRN ×2 (16:16→21:28)
--- NOTE | 2018-12-13 17:16 | Cardiology Progress Note ---
Assessment/Plan Assessment/Plan [id number] atypcial cp lv systolci dusfunction (although tech diffiuclt echo study ) repeat trop / ekg venous duplex myocardial perfusion imaging Objective Last 24 Hour Vital Signs Date Time Temp Pulse Resp B/P (MAP) Pulse Ox O2 Delivery O2 Flow Rate FiO2 12/13/18 16:00 98.3 69 18 119/73 (88) 97 12/13/18 12:42 97.5 69 18 140/68 100 Room Air 12/13/18 12:38 97.5 82 18 115/59 (77) 100 12/13/18 11:45 97.9 12/13/18 10:33 97.9 12/13/18 09:42 88 18 Room Air 12/13/18 09:41 97.9 76 18 144/88 100 Room Air 12/13/18 09:25 97.9 88 18 144/96 99 Room Air Laboratory Tests Test 12/13/18 10:00 White Blood Count 8.3 K/UL (4.8-10.8) Red Blood Count 5.41 M/UL (4.70-6.10) Hemoglobin 14.1 G/DL (14.2-18.0) L Hematocrit 44.4 % (42.0-52.0) Mean Corpuscular Volume 82 FL (80-99) Mean Corpuscular Hemoglobin 26.1 PG (27.0-31.0) L Mean Corpuscular Hemoglobin Concent 31.8 G/DL (32.0-36.0) L Red Cell Distribution Width 13.5 % (11.6-14.8) Platelet Count 322 K/UL (150-450) Mean Platelet Volume 6.0 FL (6.5-10.1) L Neutrophils (%) (Auto) 44.1 % (45.0-75.0) L Lymphocytes (%) (Auto) 36.1 % (20.0-45.0) Monocytes (%) (Auto) 7.2 % (1.0-10.0) Eosinophils (%) (Auto) 11.2 % (0.0-3.0) H Basophils (%) (Auto) 1.4 % (0.0-2.0) Urine Color Yellow Urine Appearance Clear Urine pH 6 (4.5-8.0) Urine Specific [place] 1.010 (1.005-1.035) Urine Protein Negative (NEGATIVE) Urine Glucose (UA) Negative (NEGATIVE) Urine Ketones Negative (NEGATIVE) Urine Blood Negative (NEGATIVE) Urine Nitrite Negative (NEGATIVE) Urine Bilirubin Negative (NEGATIVE) Urine Urobilinogen 1 MG/DL (0.0-1.0) H Urine Leukocyte Esterase 1+ (NEGATIVE) H Urine RBC 0 /HPF (0 - 0) Urine WBC 0-2 /HPF (0 - 0) Urine Squamous Epithelial Cells None /LPF (NONE/OCC) Urine Bacteria None /HPF (NONE) Urine Mucus Few /LPF (NONE/OCC) H Sodium Level 139 MMOL/L (136-145) Potassium Level 3.6 MMOL/L (3.5-5.1) Chloride Level 104 MMOL/L (98-107) Carbon Dioxide Level 27 MMOL/L (21-32) Anion Gap 8 mmol/L (5-15) Blood Urea Nitrogen 10 mg/dL (7-18) Creatinine 0.9 MG/DL (0.55-1.30) Estimat Glomerular Filtration Rate > 60 mL/min (>60) Glucose Level 99 MG/DL (74-106) Calcium Level 9.0 MG/DL (8.5-10.1) Total Bilirubin 0.3 MG/DL (0.2-1.0) Aspartate Amino Transf (AST/SGOT) 16 U/L (15-37) Alanine Aminotransferase (ALT/SGPT) 17 U/L (12-78) Alkaline Phosphatase 65 U/L (46-116) Total Creatine Kinase 190 U/L (26-308) Creatine Kinase MB 0.9 NG/ML (0.0-3.6) Creatine Kinase MB Relative Index 0.4 Troponin I 0.000 ng/mL (0.000-0.056) Total Protein 7.5 G/DL (6.4-8.2) Albumin 3.4 G/DL (3.4-5.0) Globulin 4.1 g/dL Albumin/Globulin Ratio 0.8 (1.0-2.7) L Lipase 197 U/L (73-393) Nacho Metcalf MD Dec 13, 2018 17:16
[2018-12-13] MEDS ORDERED: Lexiscan 0.4mg/5ml syringe IV PRN (17:30)
[2018-12-13] MEDS: Nitroglycerin Subl 0.4mg tab SL PRN ×2 (17:47→17:54)
--- NOTE | 2018-12-13 18:30 | NUR ---
NURSE NOTES: Check EMR for medications. EKG was done. Dr. Metcalf is aware of chest pain and EKG. (was spoken to at 6:30pm.)
--- NOTE | 2018-12-13 19:05 | NUR ---
NURSE NOTES: Received pt. and report from AVANI Rodriguez. Observe pt. resting in bed and watching TV. night monitor is in placed, IV site intact, asymptomatic and patent. Bed is in the lowest position and locked, call light within reach. No chest pain or acute distress noted at this time. Will continue plan of care.
--- NOTE | 2018-12-13 19:15 | NUR ---
HAND-OFF: Report given to AVANI Loyola. Endorsed plan of care for Lexiscan tomorrow and NPO post midnight.
--- NOTE | 2018-12-13 19:39 | History & Physical ---
History and Physical History & Physicial Dictated for Int Med-Dr Redding no. [id number] Osman Mcdowell MD Dec 13, 2018 19:39
[2018-12-13 20:00] VITALS: BP 146/84
[2018-12-13] MEDS: Heparin 5000 units/ml inj SUBQ SCH (21:22)
--- NOTE | 2018-12-13 22:15 | History and Physical Report ---
DATE OF ADMISSION: 12/13/2018 CHIEF COMPLAINT: The patient is a 58-year-old male, who presents with chief complaint of chest pain and shortness of breath. HISTORY OF PRESENT ILLNESS: Began approximately 2 or 3 weeks ago. The patient states "if you read the side effects of my medication, I have all the symptoms." The patient complains of chest pain. Chest pain radiates to the left shoulder. The patient also complains of subjective fevers and chills. The patient also complains of cough. The patient complains of neck pain, which radiates to the bilateral shoulders. The patient presented to [place] emergency room. The patient was admitted with chest pain and dyspnea to rule out acute coronary syndrome. REVIEW OF SYSTEMS: CONSTITUTIONAL: The patient denies weight loss or weight gain. The patient admits to subjective fevers and chills as above. HEENT: The patient denies ear or throat pain. The patient denies headache. CARDIOVASCULAR: The patient complains of chest pain as above. The patient denies palpitations. ABDOMINAL: The patient denies nausea, vomiting, diarrhea, or constipation. GENITOURINARY: The patient denies dysuria or increased frequency urination. NEUROMUSCULAR: The patient denies seizures or generalized weakness. PAST MEDICAL HISTORY: Significant for: 1. Crohn's disease. 2. Hypertension. 3. Bipolar depression. PAST SURGICAL HISTORY: Significant for: 1. Colon resection secondary to Crohn's disease in 2013. 2. Ventral hernia repair. CURRENT MEDICATIONS: 1. Amlodipine 5 mg 1 tablet p.o. daily. 2. Coreg 3.125 mg p.o. twice daily. 3. Cyclobenzaprine 5 mg p.o. 3 times daily. 4. Vitamin D 50,000 units 1 tablet p.o. weekly. 5. Pepcid 20 mg p.o. at bedtime. 6. Creon 36,000 units p.o. 3 times daily. 7. Protonix 40 mg p.o. daily. 8. Seroquel 300 mg p.o. daily. ALLERGIES: No known drug allergies. SOCIAL HISTORY: The patient is and lives with his . The patient admits to tobacco use. The patient is unable to quantitate the amount of tobacco, as he rolls his own cigarettes. The patient states he smokes a pouch daily. The patient denies alcohol use. PHYSICAL EXAMINATION: VITAL SIGNS: Temperature 97.5, respirations 18, pulse 69, blood pressure 140/60. GENERAL: The patient is well-developed, well-nourished male, in no apparent distress. HEENT: Eyes, pupils equal and responsive to light and accommodation. Extraocular movements are intact. NECK: Supple without lymphadenopathy. CHEST: Lungs are clear to auscultation bilaterally without wheezes or rales. CARDIOVASCULAR: Regular rhythm and rate. S1-S2 are normal without murmurs, rubs, or gallops. ABDOMEN: Soft, nontender, nondistended. Positive bowel sounds. No evidence of hepatosplenomegaly. Currently, no rebound or guarding noted. EXTREMITIES: Negative for clubbing, cyanosis, or edema. RECTAL/GENITAL: Refused. NEUROLOGIC: Cranial nerves II through XII are grossly intact without focal deficits. Motor strength is 5/5 bilaterally. Deep tendon reflexes are 2+ plantar. LABORATORY STUDIES: WBC 8.3, hemoglobin 14.1, hematocrit 44.4, platelets 322,000. Sodium 139, potassium 3.6, chloride 104, CO2 27, BUN 10, creatinine 0.9, glucose 99. Troponin 0.0. Chest x-ray was reported as no acute disease. An echocardiogram was reported as left ventricular ejection fraction of 40%. ASSESSMENT: This is a 58-year-old male. 1. Chest pain. 2. Dyspnea. 3. Crohn's disease. 4. Hypertension. 5. Bipolar depression. TREATMENT: 1. Chest pain. A Cardiology consultation has been obtained with Dr. Nacho Metcalf. Serial troponin levels will be performed. A Cardiolite stress test is pending. We will follow recommendation of Cardiology. 2. Dyspnea. This may be secondary to congestive heart failure. As above, Cardiology consultation has been obtained with Dr. Metcalf. 3. Crohn's disease. The patient is status post hemicolectomy. 4. Hypertension. Continue Norvasc as above. 5. Bipolar depression. Continue Seroquel as above. Osman Mcdowell M.D. DR: CELESTE JOB#: [id number] CC:
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
[2018-12-14] VITALS: BP 135/81
[2018-12-14] MEDS: Morphine Sulfate 2mg/ml Inj(IV/IM USE ONLY) IVP PRN ×6 (01:42→23:16)
--- NOTE | 2018-12-14 03:01 | Consultation ---
DATE OF CONSULTATION: 12/13/2018 CARDIOLOGY CONSULTATION ADDENDUM ALLERGIES: The patient has no known drug allergies. SOCIAL HISTORY: He smokes cigarettes. He indicates that he does not some packs of cigarettes, but he rolls his own cigarettes. He used to use drugs when he was in high school, he does not any more. He does not drink alcoholic beverages. REVIEW OF SYSTEMS: As mentioned above. PHYSICAL EXAMINATION: GENERAL: Shows to be elderly middle-aged gentleman, in no apparent respiratory distress. NECK: Supple. No jugular venous distention. No abdominojugular reflux noted. LUNGS: Clear to auscultation and percussion. CARDIAC: S1 is normal. S2 is normal. Regular rate and rhythm. No heaves, thrills, or gallops noted. Chest wall is tender to palpation as the patient indicates that seems to reproduce his usual pain. ABDOMEN: Soft and nontender. Positive bowel sounds. EXTREMITIES: There is no clubbing, cyanosis, nor is there any edema. NEUROLOGICAL: Awake, alert, and responsive. LABORATORY AND DIAGNOSTIC DATA: His electrocardiogram shows sinus rhythm, normal QRS axis, no ST or T-wave abnormalities, and delay in R-wave progression may be suggestive of anteroseptal myocardial infarction. An echocardiogram has been performed showed distal LV hypokinesis, mid and distal inferoseptal akinesis, and ejection fraction of 40%. No significant valvular regurgitation. Review of the patient's data indicates that the patient has had imaging procedures previously. Previously, his echocardiogram showed ejection fraction of 55 to 60% back in 2013. He had a myocardial perfusion imaging back at that time that showed no evidence of myocardial ischemia, possibility of small anterior septal infarction was not excluded. Chest x-ray shows no acute disease processes and spine series shows mild degenerative changes. No acute bony trauma. Labs, white count of 8.2, hemoglobin 14.1, and platelet count of 322,000. Sodium is 139, potassium 3.6, chloride 104, bicarb 27, BUN of 10, creatinine 0.9, glucose of 99, and calcium is 9.0. Liver function tests appeared to be normal. Troponin is 0.00 on one occasion and lipase is 197. His urinalysis was fairly unremarkable. ASSESSMENT AND PLAN: 1. Atypical chest pain. 2. History of hypertension. 3. LV systolic dysfunction. 4. History of subdural hematoma, post fall. 5. History of alcohol abuse previously. 6. History of schizoaffective disorder. 7. Body aches and pains. Dr. Redidng, this patient was seen in cardiac consultation. The patient's pain seems somewhat atypical, has been present for number of years. He has had evaluation on prior occasion back approximately 5 years ago. In light of the fact that his LV systolic dysfunction has changed even though the pain is very atypical to be ischemic in origin. I think he should have that stress test repeated. I would order that stress test for the time being and lipid levels will be ordered and EKG and cardiac enzymes will also be repeated as well. It is of note, however that the patient's echocardiogram was somewhat technically difficult and so the wall motion may not be completely correct . Nevertheless, I think further workup at this time. Nacho Metcalf M.D. DR: HARVEY JOB#: [id number] CC:
[2018-12-14 04:00] VITALS: BP 135/85
--- NOTE | 2018-12-14 07:27 | NUR ---
HAND-OFF: Report given to AVANI Collazo.
--- NOTE | 2018-12-14 07:30 | NUR ---
NURSE NOTES: Received patient from Milla RN in bed, denies any pain and wanting to eat, explained to pt that he's NPO pending procedure. Patient stated understanding. IV is intact and patent SL. Bed is in lowest position, brakes engaged for safety. Call light is within reach. Will continue with the plan of care.
[2018-12-14 07:32] LABS: BASOPHILS % (AUTO) 1.1 % (0.0-2.0); EOSINOPHILS % (AUTO) 13.9 % (0.0-3.0); HEMATOCRIT 41.2 % (42.0-52.0); HEMOGLOBIN 13.3 G/DL (14.2-18.0); LYMPHOCYTES % (AUTO) 40.5 % (20.0-45.0); MEAN CORPUSCULAR VOLUME 83 FL (80-99); MONOCYTES % (AUTO) 7.8 % (1.0-10.0); NEUTROPHILS % (AUTO) 36.7 % (45.0-75.0); PLATELET COUNT 294 K/UL (150-450); RED BLOOD COUNT 4.99 M/UL (4.70-6.10); RED CELL DISTRIBUTION WIDTH 13.5 % (11.6-14.8); WHITE BLOOD COUNT 6.3 K/UL (4.8-10.8)
[2018-12-14 08:00] VITALS: BP 145/98
[2018-12-14 08:39] LABS: CHOLESTEROL 197 MG/DL (< 200); HDL CHOLESTEROL 33 MG/DL (40-60); TRIGLYCERIDES 137 MG/DL (30-150)
[2018-12-14] MEDS: Aspirin Baby 81mg ORAL SCH (09:48)
[2018-12-14] MEDS: Heparin 5000 units/ml inj SUBQ SCH ×2 (09:50→21:30)
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
--- NOTE | 2018-12-14 11:54 | NUR ---
CASE MANAGEMENT:REVIEW 58 YR OLD MALE FROM HOME TO ER CC: WEAKNESS,NAUSEA AND BODY ACHES AND CHEST PAIN. SENT TO ER BT DR MORA SI: ACS 97.8 88 18 144/96 99% ON RA TROPONIN(-) IS: 500CC NS BOLUS IV TORADOL TYLENOL #3 CHEST XRAY : TO TELEMETRY IS: NORVASC PO QD ASA PO QD COREG PO Q12 HEPARIN SQ Q12 NTG SL Q5MIN PLAN: STRESS TEST INTERQUAL
[2018-12-14 12:00] VITALS: BP 137/83
--- NOTE | 2018-12-14 15:16 | Cardiology Report ---
APPROVED REPORT EKG Measurement Heart [id number] Sinus rhythm with 1st degree AV block Otherwise normal ECG
--- NOTE | 2018-12-14 15:19 | Cardiology Report ---
APPROVED REPORT EKG Measurement Heart [id number] Normal sinus rhythm Possible Anterior infarct, age undetermined Abnormal ECG
--- NOTE | 2018-12-14 15:46 | Diagnostic Imaging Report ---
Indications: Chest pain Technique: Single day single isotope protocol utilized. Initially, resting images obtained using IV administration 10.9 millicuries 99M technetium Myoview. Subsequently, patient underwent lexiscan stress testing. See cardiology report for details. During Lexiscan infusion, IV administration 32.4 mCi 99 M technetium Myoview. SPECT and planar images obtained. SPECT images gated to 8 phases of the cardiac cycle were also obtained, and reformatted into cine images for evaluation of ejection fraction. Comparison: none Findings: Per cardiology report, patient experienced chest tightness during the infusion. Per cardiology report, resting EKG demonstrates sinus bradycardia, cannot rule out anterior MS. During the infusion, patient demonstrated biphasic T waves in V5 and V6. Imaging demonstrates no definite fixed or reversible post stress perfusion defects. Normal cardiac chamber size. Calculated post stress ejection fraction 41%. Gated images demonstrate global hypokinesis, slightly greater in the septum Impression: Ischemic clinical response to pharmacologic stress, per cardiology report Equivocal electrocardiographic response to pharmacologic stress, per cardiology report No imaging findings to suggest ischemia, at level of stress achieved. Calculated post stress ejection fraction 41%. Given lack of definite perfusion abnormality, this could indicate nonischemic cardiomyopathy
[2018-12-14 16:00] VITALS: BP 139/86
--- NOTE | 2018-12-14 18:20 | NUR ---
NURSE NOTES: Notified Dr. Mcdowell about MG 1.7. No new order.
--- NOTE | 2018-12-14 18:58 | Internal Med Progress Note ---
Subjective Date of Service: Dec 14, 2018 Physician Name Osman Mcdowell Attending Physician Yuan Redding MD Current Medications Medications (Trade) Dose Ordered Sig/Ariela Route PRN Reason Start Time Stop Time Status Last Admin Dose Admin Acetaminophen (Tylenol) 650 mg Q4H PRN ORAL FEVER 12/13/18 13:15 01/12/19 13:14 Albuterol/ Ipratropium (Albuterol/ Ipratropium) 3 ml Q4H PRN HHN Shortness of Breath 12/13/18 13:15 12/18/18 13:14 Amlodipine Besylate (Norvasc) 5 mg DAILY ORAL 12/14/18 09:00 01/13/19 08:59 12/14/18 09:48 Aspirin (ASA) 162 mg DAILY ORAL 12/14/18 09:00 01/13/19 08:59 12/14/18 09:48 Carvedilol (Coreg) 3.125 mg EVERY 12 HOURS ORAL 12/13/18 21:00 01/12/19 20:59 12/14/18 09:49 Diltiazem HCl (Cardizem) 10 mg Q1H PRN IV heart rate more than 120, 12/13/18 13:15 01/12/19 13:14 Enalaprilat (Vasotec) 2.5 mg Q6H PRN IV sbp more than 160 12/13/18 13:15 01/12/19 13:14 Heparin Sodium (Porcine) (Heparin 5000 units/ml) 5,000 units EVERY 12 HOURS SUBQ 12/13/18 21:00 01/12/19 20:59 12/14/18 09:50 Ketorolac Tromethamine (Toradol 30mg) 30 mg Q6H PRN IV moderate pain ( 4-6) 12/13/18 13:15 12/18/18 13:14 Morphine Sulfate (Morphine Sulfate) 2 mg Q4H PRN IVP severe Pain (Pain Scale 7-10) 12/13/18 13:15 12/20/18 13:14 12/14/18 18:46 Nitroglycerin (Ntg) 0.4 mg Q5M PRN SL Prn Chest Pain 12/13/18 13:15 01/12/19 13:14 12/13/18 17:54 Ondansetron HCl (Zofran) 4 mg Q6H PRN IVP Nausea & Vomiting 12/13/18 13:15 01/12/19 13:14 Pantoprazole (Protonix) 40 mg DAILY ORAL 12/14/18 09:00 01/13/19 08:59 12/14/18 09:48 Polyethylene Glycol (Miralax) 17 gm DAILYPRN PRN ORAL Constipation 12/13/18 13:15 01/12/19 13:14 Regadenoson (Lexiscan) 0.4 mg ONCE PRN IV stress test 12/13/18 17:30 12/15/18 17:29 Temazepam (Restoril) 15 mg HSPRN PRN ORAL Insomnia 12/13/18 13:15 12/20/18 13:14 Allergies: Coded Allergies: NO KNOWN ALLERGIES (Unverified Allergy, Unknown, 09/13/15) ROS Limited/Unobtainable: No Constitutional: Reports: no symptoms HEENT: Reports: no symptoms Cardiovascular: Reports: chest pain Respiratory: Reports: shortness of breath Gastrointestinal/Abdominal: Reports: no symptoms Genitourinary: Reports: no symptoms Neurologic/Psychiatric: Reports: no symptoms Objective Last Vital Signs Date Time Temp Pulse Resp B/P (MAP) Pulse Ox O2 Delivery O2 Flow Rate FiO2 12/14/18 16:00 97.6 69 18 139/86 (103) 99 12/14/18 09:00 Nasal Cannula 2.0 Laboratory Tests Test 12/14/18 06:00 White Blood Count 6.3 K/UL (4.8-10.8) Red Blood Count 4.99 M/UL (4.70-6.10) Hemoglobin 13.3 G/DL (14.2-18.0) L Hematocrit 41.2 % (42.0-52.0) L Mean Corpuscular Volume 83 FL (80-99) Mean Corpuscular Hemoglobin 26.6 PG (27.0-31.0) L Mean Corpuscular Hemoglobin Concent 32.2 G/DL (32.0-36.0) Red Cell Distribution Width 13.5 % (11.6-14.8) Platelet Count 294 K/UL (150-450) Mean Platelet Volume 5.8 FL (6.5-10.1) L Neutrophils (%) (Auto) 36.7 % (45.0-75.0) L Lymphocytes (%) (Auto) 40.5 % (20.0-45.0) Monocytes (%) (Auto) 7.8 % (1.0-10.0) Eosinophils (%) (Auto) 13.9 % (0.0-3.0) H Basophils (%) (Auto) 1.1 % (0.0-2.0) Prothrombin Time 10.2 SEC (9.30-11.50) Prothromb Time International Ratio 1.0 (0.9-1.1) Activated Partial Thromboplast Time 30 SEC (23-33) Magnesium Level 1.7 MG/DL (1.8-2.4) L Troponin I 0.005 ng/mL (0.000-0.056) C-Reactive Protein, Quantitative < 0.4 mg/dL (0.00-0.90) Pro-B-Type Natriuretic Peptide 75 pg/mL (0-125) Triglycerides Level 137 MG/DL (30-150) Cholesterol Level 197 MG/DL (< 200) LDL Cholesterol 144 mg/dL (<100) H HDL Cholesterol 33 MG/DL (40-60) L Cholesterol/HDL Ratio 6.0 (3.3-4.4) H Thyroid Stimulating Hormone (TSH) 2.149 uiU/mL (0.358-3.740) Intake and Output 12/13/18 12/14/18 18:59 06:59 Intake Total 240 ml 520 ml Output Total 450 ml Balance 240 ml 70 ml Intake Oral 240 ml 520 ml Output Urine Total 450 ml # Voids 2 1 Objective PHYSICAL EXAMINATION: GENERAL: The patient is well-developed, well-nourished male, in no apparent distress. HEENT: Eyes, pupils equal and responsive to light and accommodation. Extraocular movements are intact. NECK: Supple without lymphadenopathy. CHEST: Lungs are clear to auscultation bilaterally without wheezes or rales. CARDIOVASCULAR: Regular rhythm and rate. S1-S2 are normal without murmurs, rubs, or gallops. ABDOMEN: Soft, nontender, nondistended. Positive bowel sounds. No evidence of hepatosplenomegaly. Currently, no rebound or guarding noted. EXTREMITIES: Negative for clubbing, cyanosis, or edema. RECTAL/GENITAL: Refused. NEUROLOGIC: Cranial nerves II through XII are grossly intact without focal deficits. Motor strength is 5/5 bilaterally. Deep tendon reflexes are 2+ Assessment/Plan Assessment/Plan ASSESSMENT: This is a 58-year-old male. 1. Chest pain. 2. Dyspnea. 3. Crohn's disease. 4. Hypertension. 5. Bipolar depression. TREATMENT: 1. Chest pain. A Cardiology consultation has been obtained with Dr. Nacho Metcalf. Serial troponin levels will be performed. S/P Cardiolite stress test 12/14/18-result is pending. We will follow recommendation of Cardiology. 2. Dyspnea. This may be secondary to congestive heart failure. As above, Cardiology consultation has been obtained with Dr. Metcalf. 3. Crohn's disease. The patient is status post hemicolectomy. 4. Hypertension. Continue Norvasc as above. 5. Bipolar depression. Continue Seroquel as above. Osman Mcdowell MD Dec 14, 2018 18:58
--- NOTE | 2018-12-14 19:00 | NUR ---
NURSE NOTES: Received pt. and report from AVANI Collazo. Observe pt. resting in bed and watching TV. youth nutritional monitor is in placed, IV site intact, asymptomatic and patent. Bed is in the lowest position and locked, call light within reach. No chest pain or acute distress noted at this time. Will continue plan of care.
--- NOTE | 2018-12-14 19:05 | NUR ---
HAND-OFF: Report given to AVANI Loyola.
--- NOTE | 2018-12-14 19:56 | Cardiology Progress Note ---
Assessment/Plan Assessment/Plan 1. Atypical chest pain. 2. History of hypertension. 3. LV systolic dysfunction. 4. History of subdural hematoma, post fall. 5. History of alcohol abuse previously. 6. History of schizoaffective disorder. 7. Body aches and pains. myocardial perfusion imaging results: No imaging findings to suggest ischemia, at level of stress achieved. Calculated post stress ejection fraction 41%. Given lack of definite perfusion abnormality, this could indicate nonischemic cardiomyopathy tele neg dc tele ok to med surg Subjective Cardiovascular: Reports: chest pain; Denies: lightheadedness Respiratory: Reports: shortness of breath Gastrointestinal/Abdominal: Denies: abdominal pain Genitourinary: Denies: burning Objective Last 24 Hour Vital Signs Date Time Temp Pulse Resp B/P (MAP) Pulse Ox O2 Delivery O2 Flow Rate FiO2 12/14/18 16:00 97.6 69 18 139/86 (103) 99 12/14/18 16:00 69 12/14/18 12:00 62 12/14/18 12:00 97.9 64 18 137/83 (101) 98 18 12/14/18 09:49 66 145/98 12/14/18 09:48 66 145/98 12/14/18 09:00 Nasal Cannula 2.0 12/14/18 08:00 97.5 66 18 145/98 (114) 96 12/14/18 08:00 67 12/14/18 04:00 64 12/14/18 04:00 97.7 68 17 135/85 (102) 97 12/14/18 00:00 98.1 68 16 135/81 (99) 94 12/14/18 00:00 65 12/13/18 21:21 67 146/84 12/13/18 21:00 Nasal Cannula 2.0 12/13/18 20:00 98.2 67 20 146/84 (104) 99 12/13/18 20:00 64 General Appearance: alert Neck: supple Cardiovascular: normal rate, regular rhythm Respiratory/Chest: lungs clear, normal breath sounds Abdomen: normal bowel sounds, non tender, soft Extremities: no swelling Intake and Output 12/13/18 12/14/18 18:59 06:59 Intake Total 240 ml 520 ml Output Total 450 ml Balance 240 ml 70 ml Intake Oral 240 ml 520 ml Output Urine Total 450 ml # Voids 2 1 Laboratory Tests Test 12/14/18 06:00 White Blood Count 6.3 K/UL (4.8-10.8) Red Blood Count 4.99 M/UL (4.70-6.10) Hemoglobin 13.3 G/DL (14.2-18.0) L Hematocrit 41.2 % (42.0-52.0) L Mean Corpuscular Volume 83 FL (80-99) Mean Corpuscular Hemoglobin 26.6 PG (27.0-31.0) L Mean Corpuscular Hemoglobin Concent 32.2 G/DL (32.0-36.0) Red Cell Distribution Width 13.5 % (11.6-14.8) Platelet Count 294 K/UL (150-450) Mean Platelet Volume 5.8 FL (6.5-10.1) L Neutrophils (%) (Auto) 36.7 % (45.0-75.0) L Lymphocytes (%) (Auto) 40.5 % (20.0-45.0) Monocytes (%) (Auto) 7.8 % (1.0-10.0) Eosinophils (%) (Auto) 13.9 % (0.0-3.0) H Basophils (%) (Auto) 1.1 % (0.0-2.0) Prothrombin Time 10.2 SEC (9.30-11.50) Prothromb Time International Ratio 1.0 (0.9-1.1) Activated Partial Thromboplast Time 30 SEC (23-33) Magnesium Level 1.7 MG/DL (1.8-2.4) L Troponin I 0.005 ng/mL (0.000-0.056) C-Reactive Protein, Quantitative < 0.4 mg/dL (0.00-0.90) Pro-B-Type Natriuretic Peptide 75 pg/mL (0-125) Triglycerides Level 137 MG/DL (30-150) Cholesterol Level 197 MG/DL (< 200) LDL Cholesterol 144 mg/dL (<100) H HDL Cholesterol 33 MG/DL (40-60) L Cholesterol/HDL Ratio 6.0 (3.3-4.4) H Thyroid Stimulating Hormone (TSH) 2.149 uiU/mL (0.358-3.740) Nacho Metcalf MD Dec 14, 2018 19:56
[2018-12-14 20:00] VITALS: BP 128/77
[2018-12-15] VITALS: BP 128/75
[2018-12-15] MEDS: Morphine Sulfate 2mg/ml Inj(IV/IM USE ONLY) IVP PRN ×3 (03:21→12:16)
[2018-12-15 04:00] VITALS: BP 137/81
[2018-12-15 07:10] LABS: BASOPHILS % (AUTO) 1.1 % (0.0-2.0); EOSINOPHILS % (AUTO) 15.1 % (0.0-3.0); HEMATOCRIT 44.2 % (42.0-52.0); LYMPHOCYTES % (AUTO) 39.1 % (20.0-45.0); MEAN CORPUSCULAR VOLUME 83 FL (80-99); MONOCYTES % (AUTO) 6.5 % (1.0-10.0); NEUTROPHILS % (AUTO) 38.2 % (45.0-75.0); PLATELET COUNT 323 K/UL (150-450); RED BLOOD COUNT 5.33 M/UL (4.70-6.10); RED CELL DISTRIBUTION WIDTH 13.7 % (11.6-14.8); WHITE BLOOD COUNT 7.2 K/UL (4.8-10.8)
[2018-12-15 07:28] LABS: ALANINE AMINOTRANSFERASE 19 U/L (12-78); ALBUMIN 3.6 G/DL (3.4-5.0); ALBUMIN/GLOBULIN RATIO 0.9 (1.0-2.7); ALKALINE PHOSPHATASE 64 U/L (46-116); AMYLASE 77 U/L (25-115); ANION GAP 6 mmol/L (5-15); ASPARTATE AMINO TRANSFERASE 16 U/L (15-37); BILIRUBIN,TOTAL 0.3 MG/DL (0.2-1.0); BLOOD UREA NITROGEN 11 mg/dL (7-18); CALCIUM 9.6 MG/DL (8.5-10.1); CARBON DIOXIDE 31 MMOL/L (21-32); CHLORIDE 101 MMOL/L (98-107); PHOSPHORUS 3.7 MG/DL (2.5-4.9); POTASSIUM 3.8 MMOL/L (3.5-5.1); SODIUM 138 MMOL/L (136-145)
--- NOTE | 2018-12-15 07:53 | NUR ---
HAND-OFF: Report given to AVANI Wolf.
[2018-12-15 08:00] VITALS: BP 149/84
--- NOTE | 2018-12-15 08:01 | NUR ---
Receiving note: Patient resting in bed, breathing even and unlabored on room air. A+Ox4. Tele reading SR. states generalized pain, just received medication. eating breakfast. reviewed plan of care. Call light in reach.
[2018-12-15] MEDS: Heparin 5000 units/ml inj SUBQ SCH (09:25)
[2018-12-15] MEDS: Aspirin Baby 81mg ORAL SCH (09:26)
[2018-12-15 12:00] VITALS: BP 145/84
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
[2018-12-15] MEDS ORDERED: GABAPENTIN100 MG ORAL (12:44)
--- NOTE | 2018-12-15 12:45 | NUR ---
nurse note patient ambulating around unit, steady gait. states had 1 BM. appearing comfortable and pleasant, however describes pain as intense. patient communicating with MD at this time about possible discharge. Patient appearing stable.
--- NOTE | 2018-12-15 13:56 | NUR ---
discharge note provided education and information for discharge including new medication, to f/u with PCP, diet, activity and s/s to report. Patient verbalized understanding. tele box removed, IV removed no bleeding, patient steady ambulatory. paper work given and signed. called i. pending.
--- NOTE | 2018-12-15 14:14 | Diagnostic Imaging Report ---
APPROVED REPORT CPT Code: 44556 Present Symptoms Comments: BILATERAL LEGS PAIN. BILATERAL: Imaging reveals a patent deep venous system bilaterally. There is no evidence of thrombus within the femoral, popliteal or tibial segments. The greater saphenous veins are also within normal limits. Doppler indicates normal spontaneous flow within these segments. Imaging of the left popliteal fossa reveals a Bakers cyst measuring approximately 4.2 cm x 2.8 X 3.9 cm.
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
== END 2018-12-15 14:35 | disposition home or self-care (01) | DRG 315 ==
LOC: EMR 09:42 → 2E 10:13 → EDBEDREQ 10:27
DX: I42.8 Other cardiomyopathies (principal); K50.90 Crohn's disease, unspecified, without complications; K86.1 Other chronic pancreatitis; I10 Essential (primary) hypertension; F31.9 Bipolar disorder, unspecified; R06.00 Dyspnea, unspecified; F17.210 Nicotine dependence, cigarettes, uncomplicated; F10.20 Alcohol dependence, uncomplicated; G40.909 Epilepsy, unspecified, not intractable, without status epilepticus; R07.89 Other chest pain; Z86.718 Personal history of other venous thrombosis and embolism; F25.9 Schizoaffective disorder, unspecified
CPT/HCPCS: 36415; 71045; 78452; 80053; 80061; 81003; 82150; 82550; 82553; 83690; 83735; 83880; 84100; 84443; 84484; 85025; 85610; 85651; 85730; 86140; 93005; 93017; 93306; 93970; 94664; 96374; 99285; J2785

== ENCOUNTER 2019-01-04 20:57 | Emergency (ER) | payer MEDICARE, OTHER ==
[~2019-01-04] VITALS: Ht 170.2 cm; Wt 77.1 kg
[~2019-01-04 20:57] MED LIST changes: +CYCLOBENZAPRINE5 MG ORAL; +GABAPENTIN100 MG ORAL; +QUETIAPINE FUM300 MG ORAL; +VITAMIN D250000 UNI1 ORAL
[2019-01-04 21:12] VITALS: BP 144/89
[2019-01-04] MEDS ORDERED: LORazepam Inj 2mg/ml 1ml IV ONE (21:15)
[2019-01-04 21:32] LABS: APPEARANCE,URINE CLEAR; BILIRUBIN, URINE NEGATIVE (NEGATIVE); GLUCOSE, URINE (UA) NEGATIVE (NEGATIVE); KETONES,URINE NEGATIVE (NEGATIVE); LEUKOCYTE ESTERASE ,URINE NEGATIVE (NEGATIVE); NITRITE,URINE NEGATIVE (NEGATIVE); PH,URINE 5 (4.5-8.0); PROTEIN,URINE NEGATIVE (NEGATIVE); UROBILINOGEN,URINE NORMAL MG/DL (0.0-1.0)
[2019-01-04 21:33] LABS: COLOR,URINE YELLOW
[2019-01-04 21:34] LABS: BASOPHILS % (AUTO) 1.6 % (0.0-2.0); EOSINOPHILS % (AUTO) 5.5 % (0.0-3.0); HEMATOCRIT 42.2 % (42.0-52.0); HEMOGLOBIN 13.8 G/DL (14.2-18.0); LYMPHOCYTES % (AUTO) 39.1 % (20.0-45.0); MEAN CORPUSCULAR VOLUME 81 FL (80-99); MONOCYTES % (AUTO) 7.7 % (1.0-10.0); NEUTROPHILS % (AUTO) 46.1 % (45.0-75.0); PLATELET COUNT 247 K/UL (150-450); RED BLOOD COUNT 5.23 M/UL (4.70-6.10); RED CELL DISTRIBUTION WIDTH 12.6 % (11.6-14.8); WHITE BLOOD COUNT 8.8 K/UL (4.8-10.8)
[2019-01-04 21:42] LABS: ANION GAP 12 mmol/L (5-15); BLOOD UREA NITROGEN 13 mg/dL (7-18); CALCIUM 9.1 MG/DL (8.5-10.1); CARBON DIOXIDE 26 MMOL/L (21-32); CHLORIDE 98 MMOL/L (98-107); POTASSIUM 3.3 MMOL/L (3.5-5.1); SODIUM 136 MMOL/L (136-145)
[2019-01-04 21:47] LABS: ALANINE AMINOTRANSFERASE 42 U/L (12-78); ALBUMIN 3.8 G/DL (3.4-5.0); ALBUMIN/GLOBULIN RATIO 0.9 (1.0-2.7); ALKALINE PHOSPHATASE 90 U/L (46-116); ASPARTATE AMINO TRANSFERASE 44 U/L (15-37); BILIRUBIN,TOTAL 0.3 MG/DL (0.2-1.0)
--- NOTE | 2019-01-04 21:53 | Emergency Room Report ---
History of Present Illness General Chief Complaint: Seizure Source: Patient, Family Member, Medical Record Present Illness HPI This a 58-year-old male with a history of schizoaffective disorder/bipolar, high blood pressure and chronic pain. He was brought in by his son initially with a chief complaint of chest pain and short of breath. He said he couldn't breathe and collapse getting out out of the truck. He was tremors and shaking. There was a question no seizure but there is no rhythmic activity. After dose of Ativan, patient is calm and I was able to get a history. His main complaint is chest pain. He said his been ongoing for years. He said the pain is sharp. He gets short of breath with it. He said he goes from his neck all the way down to his legs. Pain is 10 out of 10. All the medicine he is on has side effect. He was recently admitted here and had a stress test does show nonischemic cardiomyopathy with ejection fraction around 40%. He does have a history of alcohol abuse. Allergies: Coded Allergies: NO KNOWN ALLERGIES (Unverified Allergy, Unknown, 09/13/15) Patient History Past Medical History: see triage record, old chart reviewed, HTN, psych hx Past Surgical History: other Pertinent Family History: none Social History: Denies: smoking Immunizations: other Reviewed Nursing Documentation: PMH: Agreed; PSxH: Agreed Nursing Documentation-PM Past Medical History: No History, Except For Hx Cardiac Problems: Yes Hx Hypertension: Yes Hx Cancer: No Hx Gastrointestinal Problems: Yes Hx Neurological Problems: Yes Hx Cerebrovascular Accident: Yes - subdural hematoma Hx Seizures: Yes - 2-3 years ago Hx Dizziness: Yes - AT TIMES Hx Neurologic Surgery: No Review of Systems Eye: Denies: eye pain, blurred vision ENT: Denies: ear pain, nose congestion, throat swelling Respiratory: Reports: shortness of breath; Denies: cough Cardiovascular: Reports: chest pain; Denies: palpitations Gastrointestinal: Denies: abdominal pain, diarrhea, nausea, vomiting Musculoskeletal: Denies: back pain, joint pain Skin: Denies: rash Neurological: Denies: headache, numbness Endocrine: Denies: increased thirst, increased urine Hematologic/Lymphatic: Denies: easy bruising All Other Systems: negative except mentioned in HPI Physical Exam Vital Signs Date Time Temp Pulse Resp B/P (MAP) Pulse Ox O2 Delivery O2 Flow Rate FiO2 01/04/19 21:04 98.2 98 36 144/89 97 Room Air vitals normal Sp02 EP Interpretation: reviewed, normal General Appearance: well appearing, no apparent distress Head: normocephalic, atraumatic Eyes: bilateral eye PERRL, bilateral eye EOMI ENT: hearing grossly normal, normal pharynx Neck: full range of motion, supple, no meningismus Respiratory: chest non-tender, lungs clear, normal breath sounds Cardiovascular #1: regular rate, rhythm, no murmur Gastrointestinal: normal bowel sounds, non tender, no mass, no organomegaly, no bruit, non-distended Musculoskeletal: back normal, gait/station normal, normal range of motion Psychiatric: depressed affect, anxious Skin: warm/dry Medical Decision Making Diagnostic Impression: Primary Impression: Altered mental status Qualified Codes: R41.82 - Altered mental status, unspecified Additional Impressions: Alcohol intoxication Qualified Codes: F10.920 - Alcohol use, unspecified with intoxication, uncomplicated Chronic pain Qualified Codes: G89.4 - Chronic pain syndrome Anxiety ER Course Patient with an altered mental status. Clinically does not look like seizure. Was likely could be a panic attack/anxiety. He has chronic chest pain. Recent stress test from 2 weeks ago unremarkable. Troponin negative. We'll discharge home. Lab Results Impression labs unremarkable EKG Diagnostic Results Rate: tachycardiac Rhythm: NSR ST Segments: other - NSST changes Rhythm Strip Diag. Results EP Interpretation: yes Rate: 92 Rhythm: NSR, no PVC's, no ectopy Chest X-Ray Diagnostic Results Chest X-Ray Diagnostic Results : Chest X-Ray Ordered: Yes # of Views/Limited/Complete: 1 View Indication: Chest Pain EP Interpretation: Yes Interpretation: no consolidation, no effusion, no pneumothorax, no acute cardiopulmonary disease Impression: No acute disease Electronically Signed by: Amari Orellana MD CT/MRI/US Diagnostic Results CT/MRI/US Diagnostic Results : Imaging Test Ordered: CT head Impression Neg per radiologist. Last Vital Signs Date Time Temp Pulse Resp B/P (MAP) Pulse Ox O2 Delivery O2 Flow Rate FiO2 01/04/19 21:12 98 36 Room Air 01/04/19 21:12 98.2 144/89 97 Status: improved Disposition: HOME, SELF-CARE Condition: Stable Scripts Buspirone Hcl* (BUSPAR*) 10 Mg Tablet 10 MG ORAL THREE TIMES A DAY, #30 TAB 0 Refills Prov: Amari Orellana MD 01/04/19 Ibuprofen* (MOTRIN*) 600 Mg Tablet 600 MG ORAL THREE TIMES A DAY, #30 TAB 0 Refills Prov: Amari Orellana MD 01/04/19 Additional Instructions: Follow-up with your doctor in 7 days. Return if symptom worsen. Amari Orellana MD Jan 04, 2019 21:53
[2019-01-04] MEDS ORDERED: IBUPROFEN600 MG ORAL (22:38)
[2019-01-04] MEDS ORDERED: BUSPAR10 MG ORAL (22:38)
[2019-01-04 22:45] VITALS: BP 128/79
--- NOTE | 2019-01-05 10:09 | Diagnostic Imaging Report ---
Indication: Headache Technique: Contiguous 5 mm thick transaxial imaging of the head obtained in a Siemens Sensation [address] scanner. Soft tissue and bone windows generated. Automatic Exposure Control was utilized. Total Dose length Product (DLP): 1319.[address] Dose Index Volume (CTDIvol): 70.38 mGy Comparison: 09/27/2017 Findings: There is mild prominence of the ventricles, basal cisterns, and cerebral sulci consistent with atrophy. Mild, nonspecific, white matter hypoattenuation is noted throughout the brain consistent with chronic small vessel disease. There is no midline shift, edema, acute hemorrhage, mass effect, or abnormal extra-axial fluid collections. Bones and extra osseous soft tissues are unremarkable. Mucosal thickening within the paranasal sinuses demonstrated. Impression: No acute intracranial bleed, mass effect or edema. Mild atrophy of the brain. Nonspecific white matter hypoattenuation probably due to chronic small vessel disease. Sinusitis [facility] has communicated the preliminary results to the Emergency Department. Their findings are largely concordant with this report. The CT scanner at [facility] is accredited by the [employer] and the scans are performed using dose optimization techniques as appropriate to a performed exam including Automatic Exposure control.
--- NOTE | 2019-01-05 11:27 | Diagnostic Imaging Report ---
Indication: Dyspnea Comparison: 12/13/2018 A single view chest radiograph was obtained. Findings: Cardiomediastinal appearance is within normal limits for age. The lungs are clear. Pulmonary vascularity is appropriate. The diaphragmatic contour is smooth and costophrenic angles are sharp. No pleural effusions are identified. The bones are unremarkable. Impression: No acute findings
== END 2019-01-04 22:45 | disposition home or self-care (01) ==
LOC: EMR 21:30
DX: R41.82 Altered mental status, unspecified (principal); F10.129 Alcohol abuse with intoxication, unspecified; G89.29 Other chronic pain; F41.9 Anxiety disorder, unspecified; I10 Essential (primary) hypertension; Z86.73 Personal history of transient ischemic attack (TIA), and cerebral infarction without residual deficits; J32.9 Chronic sinusitis, unspecified
CPT/HCPCS: 36415; 70450; 71045; 80053; 80307; 81003; 84484; 85025; 93005; 96361; 96374; 99284; G0480; 80329

== ENCOUNTER 2019-03-29 10:40 | Inpatient (IN) | payer MEDICARE ==
[~2019-03-29] VITALS: Ht 177.8 cm; Wt 77.1 kg
[2019-03-29 10:32] VITALS: BP 171/102
--- NOTE | 2019-03-29 10:38 | NUR ---
ED Nurse Note: Patient brought in to ER by ambulance from home due to mechanical fall in his driveway. Patient alert and oriented x3-4, fatigued and ambulatory with assist. skin clean and intact but dry. pt reported that he had a few bottles of beers and shots but could not recall exact amount of alcohol he consumpted. pt denied head or any other physical injuries from the fall. no visible and open wound noted at this time.
[~2019-03-29 10:40] MED LIST changes: +ASPIR 8181 MG ORAL; +BUSPAR10 MG ORAL; +LISINOPRIL5 MG ORAL; +METOPROLOL SUCC25 MG ORAL; +PROZAC10 MG ORAL; +SEROQUEL50 MG ORAL
[2019-03-29 10:46] VITALS: BP 153/96
--- NOTE | 2019-03-29 10:57 | NUR ---
ED Nurse Note: EKG and x-ray done at bedside.
--- NOTE | 2019-03-29 11:12 | NUR ---
ED Nurse Note: blood samples sent to the lab.
[2019-03-29 11:17] LABS: EOSINOPHILS % (AUTO) 3.2 % (0.0-3.0); HEMATOCRIT 47.4 % (42.0-52.0); HEMOGLOBIN 14.8 G/DL (14.2-18.0); LYMPHOCYTES % (AUTO) 49.9 % (20.0-45.0); MEAN CORPUSCULAR VOLUME 84 FL (80-99); MONOCYTES % (AUTO) 8.1 % (1.0-10.0); NEUTROPHILS % (AUTO) 35.8 % (45.0-75.0); PLATELET COUNT 171 K/UL (150-450); RED BLOOD COUNT 5.65 M/UL (4.70-6.10)
[2019-03-29 11:26] LABS: ANION GAP 13 mmol/L (5-15); BLOOD UREA NITROGEN 8 mg/dL (7-18); CALCIUM 8.8 MG/DL (8.5-10.1); CARBON DIOXIDE 28 MMOL/L (21-32); CHLORIDE 102 MMOL/L (98-107); CREATININE 0.9 MG/DL (0.55-1.30); POTASSIUM 3.4 MMOL/L (3.5-5.1); SODIUM 143 MMOL/L (136-145)
--- NOTE | 2019-03-29 11:32 | Diagnostic Imaging Report ---
EXAM: XR Chest, 1 View CLINICAL HISTORY: chest pain TECHNIQUE: Frontal view of the chest. COMPARISON: Chest x-ray dated 01/04/19. CT chest dated 12/05/12. FINDINGS: Lungs: Unremarkable. The lungs appear clear. No focal consolidation. Pleural space: Unremarkable. The costophrenic angles are sharp. No visible pneumothorax. Heart: Unremarkable. No cardiomegaly. Mediastinum: Unremarkable. Bones/joints: Unremarkable. Tubes, lines and devices: Telemetry leads overlie the thorax. IMPRESSION: No acute findings.
[2019-03-29 11:40] LABS: ALANINE AMINOTRANSFERASE 81 U/L (12-78); ALBUMIN 4.5 G/DL (3.4-5.0); ALBUMIN/GLOBULIN RATIO 1.2 (1.0-2.7); ALKALINE PHOSPHATASE 70 U/L (46-116); ASPARTATE AMINO TRANSFERASE 126 U/L (15-37); BILIRUBIN,TOTAL 0.2 MG/DL (0.2-1.0); CKMB 0.9 NG/ML (0.0-3.6); CREATINE KINASE 426 U/L (26-308)
--- NOTE | 2019-03-29 12:08 | NUR ---
ED Nurse Note: per ERMD, pt is ok to eat. a sandwich and juice provided.
[2019-03-29 12:36] VITALS: BP 136/86
--- NOTE | 2019-03-29 13:46 | NUR ---
ED Nurse Note: per Marielena, nurse has not been assigned yet. MS PATRICIA will call me back.
--- NOTE | 2019-03-29 14:07 | NUR ---
ED Nurse Note: report given to AVANI Mcrae.
--- NOTE | 2019-03-29 14:10 | NUR ---
ED Nurse Note: pt left unit with 1 multi care technician in stable condition.
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
[2019-03-29] MEDS ORDERED: LORazepam Inj 2mg/ml 1ml IV PRN (14:45)
[2019-03-29] MEDS ORDERED: chlordiazePOXIDE 25mg Cap ORAL PRN (14:45)
[2019-03-29] MEDS ORDERED: Miralax 17gm pkt ORAL PRN (14:45)
[2019-03-29] MEDS ORDERED: Zolpidem 5mg tab ORAL PRN (14:45)
[2019-03-29 16:00] VITALS: BP 141/79
[2019-03-29] MEDS ORDERED: Thiamine 100mg in D5W 55ml IVPB SCH (16:00)
[2019-03-29] MEDS ORDERED: Folic Acid 1 MG, Magnesium Sulfate 2,000 MG, Multivitamin - 12 Injection 10 ML in NS w/... IV SCH (16:00)
[2019-03-29] MEDS: Morphine Sulfate 2mg/ml Inj(IV/IM USE ONLY) IVP PRN ×2 (17:55→22:40)
[2019-03-29] MEDS: BusPIRone 5mg Tab ORAL SCH (17:55)
[2019-03-29 20:00] VITALS: BP 163/90
--- NOTE | 2019-03-29 20:03 | NUR ---
HAND-OFF: Report given to Abida.
--- NOTE | 2019-03-29 20:04 | NUR ---
NURSE NOTES: Patient is alert and oriented x4, sometimes forgetful. Pt of fall precautions, bed locked in lowest position side rails x2. No diane beds available at this time, Patient stated he will call when he needs assistance and showed me he has his call light at his side. Patient denies SOB. Will continue plan of care and monitoring of patient.
[2019-03-29] MEDS: Heparin 5000 units/ml inj SUBQ SCH (21:04)
[2019-03-30] VITALS: BP 165/98
[2019-03-30 04:00] VITALS: BP 175/100
[2019-03-30 07:27] LABS: BASOPHILS % (AUTO) 1.7 % (0.0-2.0); EOSINOPHILS % (AUTO) 3.4 % (0.0-3.0); HEMOGLOBIN 14.4 G/DL (14.2-18.0); LYMPHOCYTES % (AUTO) 42.3 % (20.0-45.0); MEAN CORPUSCULAR VOLUME 83 FL (80-99); MONOCYTES % (AUTO) 8.4 % (1.0-10.0); NEUTROPHILS % (AUTO) 44.3 % (45.0-75.0); PLATELET COUNT 172 K/UL (150-450); RED BLOOD COUNT 5.33 M/UL (4.70-6.10); RED CELL DISTRIBUTION WIDTH 15.8 % (11.6-14.8); WHITE BLOOD COUNT 4.7 K/UL (4.8-10.8)
--- NOTE | 2019-03-30 07:36 | NUR ---
HAND-OFF: Report given to AVANI Friedman
[2019-03-30 07:42] LABS: ALANINE AMINOTRANSFERASE 78 U/L (12-78); ALBUMIN 4.6 G/DL (3.4-5.0); ALBUMIN/GLOBULIN RATIO 1.3 (1.0-2.7); ALKALINE PHOSPHATASE 71 U/L (46-116); ANION GAP 12 mmol/L (5-15); ASPARTATE AMINO TRANSFERASE 107 U/L (15-37); BILIRUBIN,TOTAL 0.6 MG/DL (0.2-1.0); BLOOD UREA NITROGEN 4 mg/dL (7-18); CALCIUM 9.6 MG/DL (8.5-10.1); CARBON DIOXIDE 27 MMOL/L (21-32); CHLORIDE 97 MMOL/L (98-107); CREATININE 0.7 MG/DL (0.55-1.30); POTASSIUM 3.5 MMOL/L (3.5-5.1); SODIUM 136 MMOL/L (136-145)
--- NOTE | 2019-03-30 07:48 | NUR ---
NURSE NOTES: Patient alert x4; on room air, no sing of distress and shortness of breath; no sign of chest pain; IV Right AC flushes well; side rails up x2 and padded for seizure percussion; breaks engaged, bed at lowest position; urinal and call light within reach; will keep monitoring. According to PM nurseBrittanie, patient's BP was high and tried to get an order from MD Redding for PRN BP medication; I will follow up on that. Will keep monitoring.
[2019-03-30 08:00] VITALS: BP 159/94
[2019-03-30] MEDS: BusPIRone 5mg Tab ORAL SCH ×2 (08:59→12:53)
[2019-03-30] MEDS ORDERED: Aspirin EC 81mg tab ORAL SCH (09:00)
[2019-03-30] MEDS ORDERED: FLUoxetine 10mg cap ORAL SCH (09:00)
[2019-03-30] MEDS ORDERED: Metoprolol Succinate XL 25mg tab ORAL SCH (09:00)
[2019-03-30] MEDS: Heparin 5000 units/ml inj SUBQ SCH (09:01)
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
--- NOTE | 2019-03-30 11:47 | NUR ---
NURSE NOTES: Patient's BP 170/104; I communicated MD Redding and MD Kwan regarding the matter. Waiting for order.
[2019-03-30 12:00] VITALS: BP 170/104
--- NOTE | 2019-03-30 13:08 | NUR ---
Social Service Note SW met with patient to assess for substance dependency. Patient is alert, oriented and verbally responsive. SW familiar with patient from previous admissions. Patient states he has struggled with alcohol dependency for a long time. Patient states due to the recent loss of his brother and 's cousin he increased his drinking as a coping mechanism. Patient also suffers from bipolar disorder. SW discussed positive coping techniques and provided emotional support. Patient not receptive to substance abuse treatment or bereavement support . Patient's PCP is Dr. Redding. Patient will return home upon discharge. Patient states his provides limited support though they live at the same address. Patient may require transportation home. Will monitor and be available as needed.
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
[2019-03-30 14:15] VITALS: BP 170/104
--- NOTE | 2019-03-30 14:42 | NUR ---
NURSE NOTES: MD Kwan put a discharge order, patient's blood pressure was 178/109; I received Clonidine 0.1 MG one time order. Clonidine 0.1 MG given and patient in room; will reassess patient's Blood Pressure.
--- NOTE | 2019-03-30 15:11 | NUR ---
NURSE NOTES: After the 1st Clonidine 0.1 MG given, patient's blood pressure remain high, 178/109. I communicated MD Kwan, received a one time order of Clonidine 0.1 MG; checked blood pressure after 30 minutes; patients BP is 160/115. I communicated MD Kwan if MD wants to discharge patient on BP 160/115. MD ordered to discharge patient.
--- NOTE | 2019-03-30 15:32 | NUR ---
NURSE NOTES: Patient left the floor by wheelchair, accompanied by assistant professor of nursing, Zita, to the taxi which is waiting patient at the drive way. Belonging list crossed matched and signed by patient and discharging nurse. Printed material given to patient. Patient communicated family member regarding his discharge. IV access and name tag removed upon discharge. Patient is stable upon discharge.
--- NOTE | 2019-03-31 11:40 | History & Physical ---
History and Physical History & Physicial patient was discharged Elizabeth Ansari NP Mar 31, 2019 11:40
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
--- NOTE | 2019-04-01 19:17 | Cardiology Report ---
APPROVED REPORT EKG Measurement Heart [id number] Normal sinus rhythm Anteroseptal infarct, age undetermined Prolonged QT Abnormal ECG
== END 2019-03-30 15:31 | disposition home or self-care (01) | DRG 897 ==
LOC: EDBD 10:40 → EMR 12:05 → 4E 12:37 → EDBEDREQ 13:36 → 4E 14:11
DX: F10.129 Alcohol abuse with intoxication, unspecified (principal); M62.82 Rhabdomyolysis; I10 Essential (primary) hypertension; R56.9 Unspecified convulsions
CPT/HCPCS: 36415; 71045; 80053; 80329; 82550; 82553; 85025; 93005; 96360; 99285

== ENCOUNTER 2019-11-22 12:41 | Outpatient (CLI) | payer MEDICARE, OTHER ==
[~2019-11-22 12:41] MED LIST changes: +AMLODIPINE BESY10 MG ORAL; +CARVEDILOL6.25 MG ORAL; +MOMETASONE FURO45 GM TP; +ZEGERID 40 MG1 EAC1 ORAL
--- NOTE | 2019-11-22 13:35 | General Progress Note ---
Assessment/Plan Assessment/Plan: Assessment/Plan Problems: (1) Smoker ICD Codes: F17.200 - Smoker SNOMED: 63391954 (2) Acute abdominal pain (3) Alcohol abuse ICD Codes: F10.10 - Alcohol abuse, uncomplicated SNOMED: 49555193 (4) Chronic pancreatitis 5-(Diverticulosis) Assessment/Plan plan EGD/ EUS labs on procedure day Subjective ROS Limited/Unobtainable: Yes Allergies: Coded Allergies: NO KNOWN ALLERGIES (Unverified Allergy, Unknown, 09/13/15) Subjective ABD PAIN Objective General Appearance: alert EENT: normal ENT inspection Neck: supple Cardiovascular: normal rate Respiratory/Chest: lungs clear Abdomen: soft, tender Extremities: non-tender Harvinder Benavides MD Nov 22, 2019 13:35
== END 2019-11-22 14:41 | disposition home or self-care (01) ==
LOC: PAN 12:41
DX: R10.9 Unspecified abdominal pain (principal); F10.10 Alcohol abuse, uncomplicated; K86.1 Other chronic pancreatitis; K57.90 Diverticulosis of intestine, part unspecified, without perforation or abscess without bleeding; F17.200 Nicotine dependence, unspecified, uncomplicated
CPT/HCPCS: 99212

== ENCOUNTER 2019-11-27 06:46 | Day surgery (SDC) | payer MEDICARE, OTHER ==
[~2019-11-27] VITALS: Ht 170.2 cm; Wt 72.6 kg
[2019-11-27] VITALS (9 sets, daily range): BP systolic 115–133; BP diastolic 17–89
[2019-11-27] MEDS ORDERED: Lidocaine 1% Plain 30 ml INJ ONE (06:47)
[2019-11-27] MEDS ORDERED: LR 1000ml 1,000 ML IVLG SCH ×2 (08:00→08:48)
[2019-11-27 08:39] LABS: ANION GAP 10 mmol/L (5-15); BLOOD UREA NITROGEN 9 mg/dL (7-18); CALCIUM 8.9 MG/DL (8.5-10.1); CARBON DIOXIDE 29 MMOL/L (21-32); CHLORIDE 107 MMOL/L (98-107); CREATININE 0.9 MG/DL (0.55-1.30); POTASSIUM 3.5 MMOL/L (3.5-5.1); SODIUM 146 MMOL/L (136-145)
[2019-11-27 08:46] LABS: ALANINE AMINOTRANSFERASE 36 U/L (12-78); ALBUMIN 3.7 G/DL (3.4-5.0); ALBUMIN/GLOBULIN RATIO 0.9 (1.0-2.7); ALKALINE PHOSPHATASE 47 U/L (46-116); AMYLASE 105 U/L (25-115); ASPARTATE AMINO TRANSFERASE 44 U/L (15-37); BILIRUBIN,TOTAL 0.2 MG/DL (0.2-1.0)
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
[2019-11-27 08:55] LABS: BASOPHILS % (AUTO) 2.2 % (0.0-2.0); EOSINOPHILS % (AUTO) 3.8 % (0.0-3.0); HEMATOCRIT 38.9 % (42.0-52.0); HEMOGLOBIN 12.8 G/DL (14.2-18.0); LYMPHOCYTES % (AUTO) 51.6 % (20.0-45.0); MEAN CORPUSCULAR VOLUME 86 FL (80-99); MONOCYTES % (AUTO) 10.2 % (1.0-10.0); NEUTROPHILS % (AUTO) 32.2 % (45.0-75.0); PLATELET COUNT 320 K/UL (150-450); RED BLOOD COUNT 4.53 M/UL (4.70-6.10); RED CELL DISTRIBUTION WIDTH 13.4 % (11.6-14.8); WHITE BLOOD COUNT 6.2 K/UL (4.8-10.8)
[2019-11-27] MEDS ORDERED: Hydromorphone 0.5mg/0.5ml inj IVP PRN (09:00)
[2019-11-27] MEDS ORDERED: HYDROcodone/Acetamin 7.5/325 tab ORAL PRN (09:00)
[2019-11-27] MEDS ORDERED: DiphenhydrAMINE 50mg/ml Inj IVP PRN (09:00)
[2019-11-27] MEDS ORDERED: Midazolam 2mg/2ml Inj IVP PRN (09:00)
[2019-11-27] MEDS ORDERED: LR 1000ml ONE (09:00)
[2019-11-27] MEDS ORDERED: Propofol 200mg/20ml IV ONE (09:00)
[2019-11-27] MEDS ORDERED: Metoclopramide 10mg/2ml Inj IVP PRN (09:00)
[2019-11-27] MEDS ORDERED: LORazepam Inj 2mg/ml 1ml IV PRN (09:00)
[2019-11-27] MEDS ORDERED: fentaNYL 100 mcg/2 mL IV PRN (09:00)
[2019-11-27] MEDS ORDERED: Ketorolac 30mg Inj IV PRN ×2 (09:00)
[2019-11-27] MEDS ORDERED: HYDROcodone/Acetamin 5/325 tab ORAL PRN (09:00)
[2019-11-27] MEDS ORDERED: Labetalol 5mg/ml 20ml vial IV PRN (09:00)
[2019-11-27] MEDS ORDERED: oxyCODONE HCL/Acetaminophen 5/325mg ORAL PRN (09:00)
[2019-11-27] MEDS ORDERED: Atropine Sulfate 0.4mg/ml inj IVP PRN (09:00)
[2019-11-27] MEDS ORDERED: Meperidine 25mg/0.5ml Inj (FOR RIGORS ONLY) IV PRN (09:00)
--- NOTE | 2019-11-27 09:05 | Pre-Procedure Note/Attestation ---
Pre-Procedure Note/Attestation Complete Prior to Procedure Planned Procedure: not applicable Procedure Narrative: egd/EUS Indications for Procedure Pre-Operative Diagnosis: pancreatitis, GERD Attestation I attest that I discussed the nature of the procedure; its benefits; risks and complications; and alternatives (and the risks and benefits of such alternatives ), prior to the procedure, with the patient (or the patient's legal representative phlebotomy services). I attest that, if there was a reasonable possibility of needing a blood transfusion, the patient (or the patient's legal representative phlebotomy services) was given the [facility] standardized written summary, pursuant to the [place] Blood Safety Act ([place] Health and Safety Code # 1645, as amended). I attest that I re-evaluated the patient just prior to the surgery and that there has been no change in the patient's H&P, except as documented below: Harvinder Benavides MD Nov 27, 2019 09:05
--- NOTE | 2019-11-27 09:06 | Short Stay Surgery H&P ---
History of Present Illness History of Present Illness Chief Complaint abd pain HPI Milton Balderas is a 59 year old male who was admitted on for Abdominal Pain,Pancreatitis Patient History Allergies: Coded Allergies: NO KNOWN ALLERGIES (Unverified Allergy, Unknown, 09/13/15) PAST MEDICAL HISTORY: (1) Smoker (2) Acute alcohol intoxication (3) Chronic pancreatitis (4) Anemia (5) Constipation (6) Seizure disorder Medication History Scheduled Amlodipine Besylate* (Amlodipine Besylate*), 10 MG ORAL DAILY, (Reported) Carvedilol* (Carvedilol*), 6.25 MG ORAL EVERY 12 HOURS, (Reported) Cyclobenzaprine Hcl (Cyclobenzaprine Hcl), 5 MG ORAL bid, (Reported) Ergocalciferol (Vitamin D2)* (Vitamin D*), 50,000 UNIT ORAL ONCE A WEEK, ( Reported) Gabapentin* (Gabapentin*), 200 MG ORAL THREE TIMES A DAY Ibuprofen* (Motrin*), 600 MG ORAL THREE TIMES A DAY Lipase/Protease/Amylase (Creon Dr 36,000 Units Capsule), 1 EACH PO TID, ( Reported) Omeprazole/Sodium Bicarbonate (Zegerid 40 Mg Packet), 40 PACKET ORAL daily, ( Reported) Quetiapine Fumarate (Quetiapine Fumarate), 300 MG ORAL BID, (Reported) Discontinued Medications Mometasone Furoate (Mometasone Furoate), TP PRN, (Reported) Discontinued Reason: Pt stopped taking med Review of Systems Cardiovascular: Reports: no symptoms Skeletal: Reports: no symptoms Gastrointestinal: Reports: see HPI Genitourinary: Reports: no symptoms Neurologic: Reports: no symptoms Endocrine: Reports: no symptoms Physical Exam Vital Signs Last Vital Signs Date Time Temp Pulse Resp B/P (MAP) Pulse Ox O2 Delivery O2 Flow Rate FiO2 11/27/19 08:09 Room Air 11/27/19 08:07 97.9 75 18 133/89 96 Labs Laboratory Tests Test 11/27/19 08:20 White Blood Count 6.2 K/UL (4.8-10.8) Red Blood Count 4.53 M/UL (4.70-6.10) L Hemoglobin 12.8 G/DL (14.2-18.0) L Hematocrit 38.9 % (42.0-52.0) L Mean Corpuscular Volume 86 FL (80-99) Mean Corpuscular Hemoglobin 28.2 PG (27.0-31.0) Mean Corpuscular Hemoglobin Concent 32.9 G/DL (32.0-36.0) Red Cell Distribution Width 13.4 % (11.6-14.8) Platelet Count 320 K/UL (150-450) Mean Platelet Volume 5.0 FL (6.5-10.1) L Neutrophils (%) (Auto) 32.2 % (45.0-75.0) L Lymphocytes (%) (Auto) 51.6 % (20.0-45.0) H Monocytes (%) (Auto) 10.2 % (1.0-10.0) H Eosinophils (%) (Auto) 3.8 % (0.0-3.0) H Basophils (%) (Auto) 2.2 % (0.0-2.0) H Sodium Level 146 MMOL/L (136-145) H Potassium Level 3.5 MMOL/L (3.5-5.1) Chloride Level 107 MMOL/L (98-107) Carbon Dioxide Level 29 MMOL/L (21-32) Anion Gap 10 mmol/L (5-15) Blood Urea Nitrogen 9 mg/dL (7-18) Creatinine 0.9 MG/DL (0.55-1.30) Estimat Glomerular Filtration Rate > 60 mL/min (>60) Glucose Level 99 MG/DL (74-106) Calcium Level 8.9 MG/DL (8.5-10.1) Total Bilirubin 0.2 MG/DL (0.2-1.0) Aspartate Amino Transf (AST/SGOT) 44 U/L (15-37) H Alanine Aminotransferase (ALT/SGPT) 36 U/L (12-78) Alkaline Phosphatase 47 U/L (46-116) Total Protein 7.7 G/DL (6.4-8.2) Albumin 3.7 G/DL (3.4-5.0) Globulin 4.0 g/dL Albumin/Globulin Ratio 0.9 (1.0-2.7) L Amylase Level 105 U/L (25-115) Lipase 194 U/L (73-393) Skin: normal HENT: normal Heart: normal Lungs: normal Abdomen: normal Extremities: normal Plan Plan of Care egd/EUS Attestation Are the patient's medical conditions optimized for surgery? Attestation Response: yes Harvinder Benavides MD Nov 27, 2019 09:06
--- NOTE | 2019-11-27 09:36 | Immediate Post-Op Evaluation ---
Immediate Post-Op Evalulation Immediate Post-Op Evalulation Procedure: EGD with EUS Date of Evaluation: Nov 27, 2019 Time of Evaluation: 09:59 IV Fluids: 900 LR Blood Products: 0 Estimated Blood Loss: 4 Urinary Output: 0 Blood Pressure Systolic: 119 Blood Pressure Diastolic: 70 Pulse Rate: 79 Respiratory Rate: 16 O2 Sat by Pulse Oximetry: 100 Temperature (Fahrenheit): 98.4 Pain Score (1-10): 1 Nausea: No Vomiting: No Complications 0 Patient Status: awake, reacts, patent, none Hydration Status: adequate Ramsey Rocha MD Nov 27, 2019 09:36
--- NOTE | 2019-11-27 09:37 | 48 Hour Post Anesthesia Eval ---
Post Anesthesia Evaluation Procedure: EGD with EUS Date of Evaluation: Nov 27, 2019 Time of Evaluation: 12:12 Blood Pressure Systolic: 134 0: 68 Pulse Rate: 81 Respiratory Rate: 18 Temperature (Fahrenheit): 98.2 O2 Sat by Pulse Oximetry: 99 Airway: patent Nausea: No Vomiting: No Pain Intensity: 1 Hydration Status: adequate Cardiopulmonary Status: Stable Mental Status/LOC: patient returned to baseline Follow-up Care/Observations: 0 Post-Anesthesia Complications: 0 Follow-up care needed: ready to discharge Ramsey Rocha MD Nov 27, 2019 09:37
--- NOTE | 2019-11-27 09:38 | Endoscopy Procedure Note ---
Endoscopy Procedure Note General Indication for Procedure: pancreatitis Procedures Performed: EGD, other - EUS Operative Findings/Diagnosis: gastritis Specimen: yes Pt Tolerated Procedure Well: Yes Estimated Blood Loss: none Anesthesia Anesthesiologist: iraida Anesthesia: MAC Inserted Devices Implant(s) used?: No GI Core Measures 50 yrs or older w/o bx or poly: Not Applicable 10yrs. F/U recommended: Not Applicable Harvinder Benavides MD Nov 27, 2019 09:38
--- NOTE | 2019-11-27 18:15 | Procedure Note ---
DATE OF PROCEDURE: 11/27/2019 SURGEON: Harvinder Benavides M.D. PROCEDURE: Upper endoscopy with biopsy and endoscopic ultrasound. ANESTHESIA: Per Savanna Rocha M.D. INSTRUMENT: Olympus upper endoscope and EUS scope. INDICATION: Abdominal pain, pancreatitis. REASON FOR PROCEDURE: The procedure, risks, benefits, and possible consequences, including hemorrhage, aspiration, perforation and infection, and alternative treatments, were explained to the patient/legal guardian by Dr. Harvinder Benavides and the patient/legal guardian understood and accepted these risks. DESCRIPTION OF PROCEDURE: After informed consent was obtained and the patient was adequately sedated, Olympus upper endoscope was advanced from mouth into the second portion of the duodenum and retroflexion was performed in the stomach. In the stomach, there was diffuse gastritis. Random biopsy from antrum was obtained to rule out H. pylori infection. Also, the patient had evidence of a small hiatal hernia. At this time, biopsy from antrum was obtained and upper endoscope was retrieved. Endoscopic ultrasound used the Olympus EUS scope. We started with the radial scope. Starting scanning at GE junction, first celiac axis was evaluated. There was no obvious celiac axis lymphadenopathy. Then pancreatic body and tail was examined while the scope was kept in the stomach. The patient had evidence of chronic pancreatitis with calcifications. Pancreatic duct was measured only about 1 mm in the body of the pancreas. No obvious mass or cyst was seen in this examination. Then, the scope was advanced to the duodenal bulb and second portion of duodenum where the head of the pancreas was examined. Incidentally, we saw a diverticulum in the second portion of duodenum. There was also persistent evidence of pancreatitis in the head. No obvious mass was seen. No pancreatic duct dilatation. No common bile duct dilatation. Common bile duct at the ampulla measured roughly about 3 mm. No obvious stone seen, but there was evidence of calcification in the head suggestive of chronic pancreatitis. At this time, the scope was removed and procedure was terminated. SUMMARY OF FINDINGS: 1. Gastritis, status post biopsy. 2. Small hiatal hernia. 3. Evidence of chronic pancreatitis without any pancreatic duct or common bile duct dilatation. 4. Duodenal diverticulum. RECOMMENDATIONS: 1. Follow up biopsy results and treat accordingly. 2. The patient to follow up in the office for further management. We will start the patient hopefully on Creon maybe 2 tablets 3 times a day for supplements and see how he responds to that. Harvinder Benavides M.D. DR: GEETHA JOB#: [id number] CC:
== END 2019-11-27 11:00 | disposition home or self-care (01) ==
LOC: GAS 06:46
DX: R10.9 Unspecified abdominal pain (principal); K29.70 Gastritis, unspecified, without bleeding; K44.9 Diaphragmatic hernia without obstruction or gangrene; K86.1 Other chronic pancreatitis; K57.10 Diverticulosis of small intestine without perforation or abscess without bleeding
CPT/HCPCS: 36415; 43239; 43259; 80053; 82150; 83690; 85025; 93005; J2001; J2250; J2704; J7120; 94003; 94150

== ENCOUNTER 2019-11-30 06:25 | Emergency (ER) | payer MEDICARE, OTHER ==
[~2019-11-30] VITALS: Ht 175.3 cm; Wt 72.6 kg
[2019-11-30 06:35] VITALS: BP 154/97
[2019-11-30] MEDS ORDERED: Morphine Sulfate 4mg/ml Inj (IV USE ONLY) IVP ONE (06:45)
--- NOTE | 2019-11-30 06:46 | Emergency Room Report ---
History of Present Illness General Chief Complaint: Chest Pain Source: Patient Present Illness HPI Patient presents with complaints of left-sided chest pain patient reports that he had recent upper endoscopy performed Denies any recent travel denies any pleurisy Pain has been consistent for the past 7 days Denies any vomiting or diarrhea denies any lower abdominal pain Patient feels that he has more increased upper abdominal discomfort as well And complains of cramps in both of his legs Allergies: Coded Allergies: NO KNOWN ALLERGIES (Unverified Allergy, Unknown, 09/13/15) Patient History Past Medical History: see triage record Reviewed Nursing Documentation: PMH: Agreed; PSxH: Agreed Nursing Documentation-PMH Hx Cardiac Problems: Yes Hx Hypertension: Yes Hx Diabetes: Yes Hx Cancer: No Hx Gastrointestinal Problems: Yes History Of Psychiatric Problem: Yes - BIPOLAR Hx Neurological Problems: Yes Hx Cerebrovascular Accident: Yes - subdural hematoma Hx Seizures: Yes Hx Dizziness: Yes - AT TIMES Hx Neurologic Surgery: No Review of Systems All Other Systems: negative except mentioned in HPI Physical Exam Vital Signs Date Time Temp Pulse Resp B/P (MAP) Pulse Ox O2 Delivery O2 Flow Rate FiO2 11/30/19 06:27 98.2 106 19 154/97 (116) 99 Room Air Sp02 EP Interpretation: reviewed, normal General Appearance: well appearing, no apparent distress Head: normocephalic, atraumatic Eyes: bilateral eye PERRL, bilateral eye EOMI ENT: hearing grossly normal, normal pharynx, TMs + canals normal, uvula midline Neck: full range of motion, supple, no meningismus, no bony tend Respiratory: lungs clear, normal breath sounds, no rhonchi, no respiratory distress, no retraction, no accessory muscle use Cardiovascular #1: normal peripheral pulses, regular rate, rhythm, no edema, no gallop, no JVD, no murmur Gastrointestinal: normal bowel sounds, non tender, soft, no mass, no organomegaly, non-distended, no guarding, no hernia, no pulsatile mass, no rebound Genitourinary: no CVA tenderness Musculoskeletal: normal inspection Neurologic: motor strength/tone normal, 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, oriented x3 , sensory intact, responsive Psychiatric: mood/affect normal Skin: no rash Lymphatic: normal inspection, no adenopathy Medical Decision Making Diagnostic Impression: Primary Impression: Chest pain ER Course Patient is a fairly complex patient with multiple differential to consideration including but not limited to cardiac cardiopulmonary and vascular emergencies Other differential such as perforation also entertained X-ray is normal and does not show any signs of free air patient is resting comfortably and my suspicion for that is also low clinically Blood work all within normal limits I discussed the case with the patient's GI specialist and patient is stable for close outpatient follow-up Labs Test 11/30/19 06:53 White Blood Count 6.0 K/UL (4.8-10.8) Red Blood Count 4.44 M/UL (4.70-6.10) Hemoglobin 12.4 G/DL (14.2-18.0) Hematocrit 36.9 % (42.0-52.0) Mean Corpuscular Volume 83 FL (80-99) Mean Corpuscular Hemoglobin 27.9 PG (27.0-31.0) Mean Corpuscular Hemoglobin Concent 33.6 G/DL (32.0-36.0) Red Cell Distribution Width 12.7 % (11.6-14.8) Platelet Count 343 K/UL (150-450) Mean Platelet Volume 4.9 FL (6.5-10.1) Neutrophils (%) (Auto) 28.4 % (45.0-75.0) Lymphocytes (%) (Auto) 48.7 % (20.0-45.0) Monocytes (%) (Auto) 6.7 % (1.0-10.0) Eosinophils (%) (Auto) 14.3 % (0.0-3.0) Basophils (%) (Auto) 2.0 % (0.0-2.0) Sodium Level 144 MMOL/L (136-145) Potassium Level 3.5 MMOL/L (3.5-5.1) Chloride Level 106 MMOL/L (98-107) Carbon Dioxide Level 26 MMOL/L (21-32) Anion Gap 12 mmol/L (5-15) Blood Urea Nitrogen 11 mg/dL (7-18) Creatinine 0.8 MG/DL (0.55-1.30) Estimat Glomerular Filtration Rate > 60 mL/min (>60) Glucose Level 111 MG/DL (74-106) Calcium Level 9.0 MG/DL (8.5-10.1) Total Bilirubin 0.3 MG/DL (0.2-1.0) Aspartate Amino Transf (AST/SGOT) 41 U/L (15-37) Alanine Aminotransferase (ALT/SGPT) 31 U/L (12-78) Alkaline Phosphatase 50 U/L (46-116) Troponin I 0.000 ng/mL (0.000-0.056) Total Protein 7.3 G/DL (6.4-8.2) Albumin 3.4 G/DL (3.4-5.0) Globulin 3.9 g/dL Albumin/Globulin Ratio 0.9 (1.0-2.7) Lipase 171 U/L (73-393) Serum Alcohol 106 mg/dL EKG Diagnostic Results Rate: normal Rhythm: NSR ST Segments: no acute changes Rhythm Strip Diag. Results EP Interpretation: yes Rate: 77 Rhythm: NSR, no PVC's, no ectopy Chest X-Ray Diagnostic Results Chest X-Ray Diagnostic Results : Chest X-Ray Ordered: Yes # of Views/Limited/Complete: 1 View Indication: Chest Pain EP Interpretation: Yes Interpretation: no consolidation, no effusion, no pneumothorax Impression: No acute disease Electronically Signed by: Janeth Vincent DO Last Vital Signs Date Time Temp Pulse Resp B/P (MAP) Pulse Ox O2 Delivery O2 Flow Rate FiO2 11/30/19 06:35 106 19 Room Air 11/30/19 06:35 98.2 154/97 99 Status: improved Disposition: HOME, SELF-CARE Condition: Improved Scripts Mag Hydrox/Al Hydrox/Simeth (Maalox Advanced Suspension) 355 Ml Oral.susp 10 ML PO BID for 7 Days, ML Prov: Janeth Vincent DO 11/30/19 Additional Instructions: Patient is provided with the discharge instructions notified to follow up with primary doctor in the next 2-3 days otherwise return to the er with any worsening symptoms. Please note that this report is being documented using [employer] technology. This can lead to erroneous entry secondary to incorrect interpretation by the dictating instrument. Janeth Vincent DO Nov 30, 2019 06:46
[2019-11-30 07:24] LABS: EOSINOPHILS % (AUTO) 14.3 % (0.0-3.0); HEMATOCRIT 36.9 % (42.0-52.0); HEMOGLOBIN 12.4 G/DL (14.2-18.0); LYMPHOCYTES % (AUTO) 48.7 % (20.0-45.0); MEAN CORPUSCULAR VOLUME 83 FL (80-99); MONOCYTES % (AUTO) 6.7 % (1.0-10.0); NEUTROPHILS % (AUTO) 28.4 % (45.0-75.0); PLATELET COUNT 343 K/UL (150-450); RED BLOOD COUNT 4.44 M/UL (4.70-6.10); RED CELL DISTRIBUTION WIDTH 12.7 % (11.6-14.8)
[2019-11-30 07:30] LABS: ANION GAP 12 mmol/L (5-15); BLOOD UREA NITROGEN 11 mg/dL (7-18); CARBON DIOXIDE 26 MMOL/L (21-32); CHLORIDE 106 MMOL/L (98-107); CREATININE 0.8 MG/DL (0.55-1.30); POTASSIUM 3.5 MMOL/L (3.5-5.1); SODIUM 144 MMOL/L (136-145)
[2019-11-30 07:34] VITALS: BP 157/97
[2019-11-30 07:35] LABS: ALANINE AMINOTRANSFERASE 31 U/L (12-78); ALBUMIN 3.4 G/DL (3.4-5.0); ALBUMIN/GLOBULIN RATIO 0.9 (1.0-2.7); ALKALINE PHOSPHATASE 50 U/L (46-116); ASPARTATE AMINO TRANSFERASE 41 U/L (15-37); BILIRUBIN,TOTAL 0.3 MG/DL (0.2-1.0)
[2019-11-30] MEDS ORDERED: Mylanta II UD 30ml ORAL ONE (08:00)
[2019-11-30] MEDS ORDERED: HYDROcodone/Acetamin 5/325 tab ORAL ONE (08:00)
[2019-11-30] MEDS ORDERED: Dicyclomine HCl 10mg/5ml oral soln ORAL ONE (08:00)
[2019-11-30] MEDS ORDERED: MAALOX ADVANCE770 ML PO (08:47)
--- NOTE | 2019-11-30 08:56 | Diagnostic Imaging Report ---
Indication: Chest Technique: One view of the chest Comparison: 03/29/2019 Findings: Lungs and pleural spaces are clear. Heart size is normal. No significant change Impression: No acute process
[2019-11-30 09:40] VITALS: BP 158/101
[2019-11-30 09:42] VITALS: BP 158/101
== END 2019-11-30 09:50 | disposition home or self-care (01) ==
LOC: EMR 07:00
DX: R07.9 Chest pain, unspecified (principal); R10.10 Upper abdominal pain, unspecified; I10 Essential (primary) hypertension; E11.9 Type 2 diabetes mellitus without complications; F31.9 Bipolar disorder, unspecified; Z86.73 Personal history of transient ischemic attack (TIA), and cerebral infarction without residual deficits
CPT/HCPCS: 36415; 71045; 80053; 83690; 84484; 85025; 93005; 96374; 96375; 99284; G0480; J2270; J2405; J7040

== ENCOUNTER 2019-12-04 18:54 | Emergency (ER) | payer MEDICARE, OTHER ==
[~2019-12-04] VITALS: Ht 175.3 cm; Wt 72.6 kg
[~2019-12-04 18:54] MED LIST changes: +MAALOX ADVANCE770 ML PO
[2019-12-04 18:56] VITALS: BP 162/102
--- NOTE | 2019-12-04 18:58 | NUR ---
ED Nurse Note: Patient was BIBA RA 68 from home due to left flank pain, chest tightness. Patient placed on manager cardiac cath showing SR. On room air, saturaitng 100%. No respiratory distress noted. Patient requested oxygen, placed on 2LPM via NC. Awaiting for ERMD/orders.
--- NOTE | 2019-12-04 18:59 | NUR ---
ED Nurse Note: ERMD at bedside
--- NOTE | 2019-12-04 19:04 | NUR ---
HAND-OFF: Report given to AVANI Lin.
--- NOTE | 2019-12-04 19:11 | NUR ---
ED Nurse Note: Xray at bedside
[2019-12-04] MEDS ORDERED: Morphine Sulfate 4mg/ml Inj (IV USE ONLY) IVP ONE (19:30)
[2019-12-04] MEDS ORDERED: Omnipaque-300 100ml vial INJ PRN (19:30)
--- NOTE | 2019-12-04 19:40 | NUR ---
ED Nurse Note: Pt taken to CT in stable condition. VSS no s/s of distress noted.
[2019-12-04 19:47] LABS: BASOPHILS % (AUTO) 1.6 % (0.0-2.0); HEMATOCRIT 45.2 % (42.0-52.0); HEMOGLOBIN 14.2 G/DL (14.2-18.0); LYMPHOCYTES % (AUTO) 49.7 % (20.0-45.0); MEAN CORPUSCULAR VOLUME 85 FL (80-99); MONOCYTES % (AUTO) 4.3 % (1.0-10.0); NEUTROPHILS % (AUTO) 37.4 % (45.0-75.0); PLATELET COUNT 311 K/UL (150-450); RED BLOOD COUNT 5.29 M/UL (4.70-6.10); RED CELL DISTRIBUTION WIDTH 14.1 % (11.6-14.8)
[2019-12-04 19:55] LABS: ANION GAP 15 mmol/L (5-15); BLOOD UREA NITROGEN 12 mg/dL (7-18); CALCIUM 8.9 MG/DL (8.5-10.1); CARBON DIOXIDE 26 MMOL/L (21-32); CHLORIDE 106 MMOL/L (98-107); CREATININE 0.8 MG/DL (0.55-1.30); POTASSIUM 4.1 MMOL/L (3.5-5.1); SODIUM 147 MMOL/L (136-145)
--- NOTE | 2019-12-04 19:58 | NUR ---
ED Nurse Note: Pt returned from CT in stable condition, no s/s of distress noted.
[2019-12-04 20:00] LABS: ALANINE AMINOTRANSFERASE 40 U/L (12-78); ALBUMIN 3.7 G/DL (3.4-5.0); ALBUMIN/GLOBULIN RATIO 0.9 (1.0-2.7); ALKALINE PHOSPHATASE 68 U/L (46-116); ASPARTATE AMINO TRANSFERASE 47 U/L (15-37); BILIRUBIN,TOTAL 0.3 MG/DL (0.2-1.0)
--- NOTE | 2019-12-04 20:06 | Diagnostic Imaging Report ---
INDICATION: Abdominal pain TECHNIQUE: Continuous helical transaxial imaging of the abdomen and pelvis was obtained from the lung bases to the pubic symphysis during intravenous contrast administration. Coronal 2-D reformats were also obtained. Study obtained in a Siemens sensation [address] Automatic Exposure Control was utilized. Total Dose length Product (DLP): 260.[address] Dose Index Volume (CTDIvol): 5.1 mGy COMPARISON: None FINDINGS: Lungs: There is mild posterior basal atelectasis.. Liver: Unremarkable Gallbladder/biliary system: No gallstones are identified. There is no evidence of intrahepatic or extrahepatic biliary ductal dilatation. Spleen: Unremarkable Pancreas: Unremarkable Kidneys/Bladder: Multiple small hypodensities are present likely cysts within both kidneys. There is no hydronephrosis.. Adrenal glands: Hypertrophy noted bilaterally without loss of adreniform shape. This may be due to adrenal hyperplasia. Please correlate clinically. Aorta/IVC: Calcification of aorta demonstrated. No aneurysm seen. Bowel: Bowel gas pattern is nonobstructive. The appendix is seen and appears normal. Peritoneum: There is a broad-based umbilical hernia demonstrated. The linea alba and the fascia appears intact although stretched out and protuberant with the fascia approximating the umbilicus and skin.. Bones: Unremarkable IMPRESSION: No acute findings appreciated in the abdomen. Suggestion of multiple renal cysts. Atherosclerotic disease Adrenal hyperplasia particularly on the left side. Broad-based umbilical hernia containing fat Mild posterior basal atelectasis. [facility] has communicated the preliminary results to the Emergency Department. Their findings are largely concordant with this report. The CT scanner at [facility] is accredited by the [employer] and the scans are performed using dose optimization techniques as appropriate to a performed exam including Automatic Exposure control.
[2019-12-04 20:44] LABS: APPEARANCE,URINE CLEAR; BILIRUBIN, URINE NEGATIVE (NEGATIVE); COLOR,URINE PALE YELLOW; GLUCOSE, URINE (UA) NEGATIVE (NEGATIVE); KETONES,URINE NEGATIVE (NEGATIVE); LEUKOCYTE ESTERASE ,URINE NEGATIVE (NEGATIVE); NITRITE,URINE NEGATIVE (NEGATIVE); PH,URINE 7 (4.5-8.0); PROTEIN,URINE NEGATIVE (NEGATIVE); UROBILINOGEN,URINE NORMAL MG/DL (0.0-1.0)
[2019-12-04 20:45] VITALS: BP 152/92
[2019-12-04] MEDS ORDERED: CITRATE OF MAG296 ML PO (20:47)
[2019-12-04] MEDS ORDERED: COLACE100 MG ORAL (20:47)
[2019-12-04 20:57] VITALS: BP 157/95
--- NOTE | 2019-12-04 20:57 | NUR ---
ER DISCHARGE NOTE: Patient is cleared to be discharged home per ERMD, pt is aox4, on room air, with stable vital signs. pt was given dc and prescription instructions, pt was able to verbalize understanding, pt id band and iv site removed without complications. pt is able to ambulate with steady gait. pt took all belongings.
--- NOTE | 2019-12-04 21:40 | Emergency Room Report ---
History of Present Illness General Chief Complaint: Upper Respiratory Illness Source: Medical Record, EMS Present Illness HPI 59-year-old male presents ED for evaluation of abdominal pain. Brought in by EMS from home. Complaining of pain to left upper abdomen. Cramping, 8 out of 10, nonradiating. Notes nausea and vomiting. States he has not had a bowel movement in the last few days. Also notes he is having intermittent chest pain. States he has had this pain for months. Denies shortness of breath. States he was here and had a "camera" in his stomach. Does not know the results. No other aggravating relieving factors. Denies any other associated symptoms Allergies: Coded Allergies: NO KNOWN ALLERGIES (Unverified Allergy, Unknown, 09/13/15) Patient History Past Medical History: DM, HTN, CVA/TIA, seizures, psych hx Past Surgical History: none Pertinent Family History: none Social History: Reports: alcohol use; Denies: smoking, drug use Immunizations: UTD Reviewed Nursing Documentation: PMH: Agreed; PSxH: Agreed Nursing Documentation-PMH Hx Cardiac Problems: Yes Hx Hypertension: Yes Hx Diabetes: Yes Hx Cancer: No Hx Gastrointestinal Problems: Yes History Of Psychiatric Problem: Yes Hx Neurological Problems: Yes Hx Cerebrovascular Accident: Yes - subdural hematoma Hx Seizures: Yes Hx Dizziness: Yes - AT TIMES Hx Neurologic Surgery: No Review of Systems All Other Systems: negative except mentioned in HPI Physical Exam Vital Signs Date Time Temp Pulse Resp B/P (MAP) Pulse Ox O2 Delivery O2 Flow Rate FiO2 12/04/19 18:38 98.4 96 18 162/99 (120) 97 Room Air Sp02 EP Interpretation: reviewed, normal General Appearance: no apparent distress, alert, GCS 15, non-toxic Head: normocephalic, atraumatic Eyes: bilateral eye normal inspection, bilateral eye PERRL ENT: hearing grossly normal, normal pharynx, no angioedema, normal voice Neck: full range of motion, supple/symm/no masses Respiratory: chest non-tender, lungs clear, normal breath sounds, speaking full sentences Cardiovascular #1: regular rate, rhythm, no edema Cardiovascular #2: 2+ carotid (R), 2+ carotid (L), 2+ radial (R), 2+ radial (L) , 2+ dorsalis pedis (R), 2+ dorsalis pedis (L) Gastrointestinal: normal bowel sounds, soft, non-distended, no guarding, no rebound, tenderness - LUQ Rectal: deferred Genitourinary: normal inspection, no CVA tenderness Musculoskeletal: back normal, normal range of motion, gait/station normal, non- tender Neurologic: alert, motor strength/tone normal, oriented x3, sensory intact, responsive, speech normal Psychiatric: judgement/insight normal, memory normal, mood/affect normal, no suicidal/homicidal ideation Reflexes: 3+ bicep (R), 3+ bicep (L), 3+ tricep (R), 3+ tricep (L), 3+ knee (R) , 3+ knee (L) Skin: no rash Lymphatic: no adenopathy Medical Decision Making Diagnostic Impression: Primary Impression: Constipation Qualified Codes: K59.00 - Constipation, unspecified Additional Impression: Alcohol intoxication Qualified Codes: F10.929 - Alcohol use, unspecified with intoxication, unspecified ER Course Hospital Course 59-year-old M presents to ED with chest pain, abdominal pain Differential diagnosis includes-appendicitis, cholecystitis, small bowel obstruction, gastritis, Clinical course Patient placed on stretcher. After initial history and physical I ordered labs , IV fluids, pain medications, CXR and EKG and CT scan Labs - no leukocytosis, electrolytes ok, ETOH elevated, trop negative EKG - NSR no acute ischemic changes interpreted by me CXR no acute process CT scan shows no acute pathology, fecal impaction noted Discussed findings with patient. Patient is clinically sober now. Labs unremarkable. Work-up negative. Will discharge home with stool softeners. Recommend close follow-up with GI and PMD. Dr. Benavides and Vahid aware I feel this is a highly complex case requiring extensive working including EKG/ Rhythm strip, Xray/CT/US, Blood/urine lab work, repeat exams while in ED, and administration of strong opiates/narcotics for pain control, admission to hospital or close patient follow up. Diagnosis - constipation, alcohol intoxication Stable and discharged to home with Rx colace. Followup with PMD. Return to ED if symptoms recur or worsen Labs Test 12/04/19 19:20 12/04/19 20:05 White Blood Count 7.0 K/UL (4.8-10.8) Red Blood Count 5.29 M/UL (4.70-6.10) Hemoglobin 14.2 G/DL (14.2-18.0) Hematocrit 45.2 % (42.0-52.0) Mean Corpuscular Volume 85 FL (80-99) Mean Corpuscular Hemoglobin 26.8 PG (27.0-31.0) Mean Corpuscular Hemoglobin Concent 31.3 G/DL (32.0-36.0) Red Cell Distribution Width 14.1 % (11.6-14.8) Platelet Count 311 K/UL (150-450) Mean Platelet Volume 6.7 FL (6.5-10.1) Neutrophils (%) (Auto) 37.4 % (45.0-75.0) Lymphocytes (%) (Auto) 49.7 % (20.0-45.0) Monocytes (%) (Auto) 4.3 % (1.0-10.0) Eosinophils (%) (Auto) 7.0 % (0.0-3.0) Basophils (%) (Auto) 1.6 % (0.0-2.0) Sodium Level 147 MMOL/L (136-145) Potassium Level 4.1 MMOL/L (3.5-5.1) Chloride Level 106 MMOL/L (98-107) Carbon Dioxide Level 26 MMOL/L (21-32) Anion Gap 15 mmol/L (5-15) Blood Urea Nitrogen 12 mg/dL (7-18) Creatinine 0.8 MG/DL (0.55-1.30) Estimat Glomerular Filtration Rate > 60 mL/min (>60) Glucose Level 100 MG/DL (74-106) Calcium Level 8.9 MG/DL (8.5-10.1) Total Bilirubin 0.3 MG/DL (0.2-1.0) Aspartate Amino Transf (AST/SGOT) 47 U/L (15-37) Alanine Aminotransferase (ALT/SGPT) 40 U/L (12-78) Alkaline Phosphatase 68 U/L (46-116) Troponin I 0.004 ng/mL (0.000-0.056) Total Protein 7.7 G/DL (6.4-8.2) Albumin 3.7 G/DL (3.4-5.0) Globulin 4.0 g/dL Albumin/Globulin Ratio 0.9 (1.0-2.7) Lipase 212 U/L (73-393) Serum Alcohol 251 mg/dL Urine Color Pale yellow Urine Appearance Clear Urine pH 7 (4.5-8.0) Urine Specific [place] 1.005 (1.005-1.035) Urine Protein Negative (NEGATIVE) Urine Glucose (UA) Negative (NEGATIVE) Urine Ketones Negative (NEGATIVE) Urine Blood Negative (NEGATIVE) Urine Nitrite Negative (NEGATIVE) Urine Bilirubin Negative (NEGATIVE) Urine Urobilinogen Normal MG/DL (0.0-1.0) Urine Leukocyte Esterase Negative (NEGATIVE) EKG Diagnostic Results Rate: normal Rhythm: NSR ST Segments: no acute changes ASA given to the pt in ED: No Rhythm Strip Diag. Results EP Interpretation: yes Rhythm: NSR, no PVC's, no ectopy Chest X-Ray Diagnostic Results Chest X-Ray Diagnostic Results : Chest X-Ray Ordered: Yes # of Views/Limited/Complete: 1 View Indication: Chest Pain EP Interpretation: Yes Interpretation: no consolidation, no effusion, no pneumothorax, no acute cardiopulmonary disease Impression: No acute disease Electronically Signed by: Electronically signed by Wai Browne MD CT/MRI/US Diagnostic Results CT/MRI/US Diagnostic Results : Imaging Test Ordered: CT A/P Impression CT ABDOMEN + PELVIS With Contrast: COMPARISON: 05/18/2017 Bowel is nondilated. No diverticulitis, free air, or appendicitis. Diastases of the rectus musculature. Subcentimeter foci of hypoattenuation in the kidneys are too small to characterize. Aortic atherosclerosis. No abdominal aortic aneurysm. Duodenal diverticulum without focal inflammatory change. Spleen, pancreas, gallbladder, and liver are unremarkable. Last Vital Signs Date Time Temp Pulse Resp B/P (MAP) Pulse Ox O2 Delivery O2 Flow Rate FiO2 12/04/19 18:56 84 18 Room Air 12/04/19 18:56 98.4 162/102 100 Status: improved Disposition: HOME, SELF-CARE Condition: Stable Scripts Magnesium Citrate (CITRATE OF MAGNESIA) 296 Ml Solution 150 ML PO DAILY for 2 Days, #296 ML Prov: Wai Browne MD 12/04/19 Docusate Sodium* (COLACE*) 100 Mg Capsule 100 MG ORAL THREE TIMES A DAY, #30 CAP Prov: Wai Browne MD 12/04/19 Referrals: Yuan Redding MD, Mehrdad MD Patient Instructions: Constipation, Adult, [id number] Wai Browne MD Dec 04, 2019 21:40
--- NOTE | 2019-12-05 12:27 | Diagnostic Imaging Report ---
Indication: Dyspnea Comparison: 11/30/2019 A single view chest radiograph was obtained. Findings: Cardiomediastinal appearance is within normal limits for age. The lungs are clear. Pulmonary vascularity is appropriate. The diaphragmatic contour is smooth and costophrenic angles are sharp. No pleural effusions are identified. The bones are unremarkable. Impression: No acute findings
== END 2019-12-04 20:57 | disposition home or self-care (01) ==
LOC: EDBD 18:54 → EMR 19:00
DX: K59.00 Constipation, unspecified (principal); F10.129 Alcohol abuse with intoxication, unspecified; R07.9 Chest pain, unspecified; E11.9 Type 2 diabetes mellitus without complications; I10 Essential (primary) hypertension; Z86.73 Personal history of transient ischemic attack (TIA), and cerebral infarction without residual deficits; G40.909 Epilepsy, unspecified, not intractable, without status epilepticus; I70.0 Atherosclerosis of aorta
CPT/HCPCS: 36415; 71045; 74177; 80053; 81003; 83690; 84484; 85025; 93005; 96361; 96374; 96375; 99284; G0480; J2270; J2405; J7030; Q9967